=== PATIENT | female | born 1975 | race Caucasian/White ===

== ENCOUNTER → 2020-07-24 07:35 | Outpatient (CLI) | payer OTHER, SELFPAY ==
--- NOTE | ~2020-07-24 | US_ITS ---
US right upper quadrant INDICATION: Epigastric abdominal pain. Nausea. Heartburn. PROCEDURE: Realtime right upper abdominal ultrasound. COMPARISON: No prior studies for comparison. FINDINGS: The pancreas is normal without focal mass or pancreatic ductal dilation. Liver echotexture is normal without focal mass or intrahepatic biliary dilatation. There is normal directional flow i n the portal vein. The gallbladder is normal without stones, gallbladder wall thickening or pericholecystic fluid. Comm on bile duct measures 3 mm. No sonographic Ibarra's sign. Right renal echotexture is unremarkable. IMPRESSION: 1: Normal limited abdominal ultrasound. Reviewed, dictated and finalized at location B.
== END ==
DX: R10.13 Epigastric pain (principal)
CPT/HCPCS: 76705

== ENCOUNTER → 2020-09-04 07:22 | Outpatient (CLI) | payer OTHER, SELFPAY ==
--- NOTE | ~2020-09-04 | MM_ITS ---
EXAMINATION: MM scrn indigo implant BI w lev HISTORY: Screening mammogram TECHNIQUE: Craniocaudal and mediolateral oblique 3-D tomosynthesis images with implant displacement a nd synthetic 2-D images were generated. Craniocaudal and mediolateral oblique views of the breasts wi thout implant displacement were obtained using full field digital mammography. CAD analysis was submi tted and interpreted. COMPARISON: No prior mammogram is available for comparison at this institution. BREAST PARENCHYMAL COMPOSITION: The breasts are heterogeneously dense, which may obscure small masses . FINDINGS: Status post bilateral augmentation mammoplasty. There is no evidence of suspicious mass, ca lcification, or architectural distortion to suggest malignancy in either breast. There has been no lara spicious interval change. IMPRESSION: 1. No mammographic evidence of malignancy. 2. Recommend routine screening mammography in one year. BI-RADS Category 1: Negative Reviewed, dictated and finalized at location A.
== END ==
PROVIDERS: Visit Provider Advanced Practice Midwife
DX: Z12.31 Encounter for screening mammogram for malignant neoplasm of breast (principal)
CPT/HCPCS: 77063; 77067

== ENCOUNTER 2020-09-29 12:01 | Outpatient (CLI) | payer OTHER, SELFPAY ==
--- NOTE | ~2020-09-29 | XR_ITS ---
EXAMINATION: XR abdomen/kub 1V EXAM DATE: 09/29/2020 12:15 INDICATION: Ileitis, 30 hours post patency capsule ingestion. TECHNIQUE: Frontal projection of the upper abdomen, frontal projection lower abdomen/pelvis for inter pretation. There is no prior study for comparison. FINDINGS: No radiopaque foreign bodies identified. There is expected amount of colonic stool and ga s. No small bowel dilation, nonobstructive bowel gas pattern. There are no suspicious calcificati ons identified. There is no organomegaly suspected. The bones are unremarkable. IMPRESSION: Unremarkable abdomen x-ray exam. Reviewed, dictated and finalized at location A.
== END 2020-09-29 12:02 | disposition home or self-care (01) ==
LOC: ANHIMG 12:02
DX: K52.9 Noninfective gastroenteritis and colitis, unspecified (principal)
CPT/HCPCS: 74018

== ENCOUNTER → 2022-06-02 16:33 | Outpatient (CLI) | payer OTHER, SELFPAY ==
--- NOTE | ~2022-06-02 | MM_ITS ---
EXAMINATION: MM scrn indigo implant BI w lev HISTORY: Screening mammogram TECHNIQUE: Craniocaudal and mediolateral oblique 3-D tomosynthesis images with implant displacement a nd synthetic 2-D images were generated. Craniocaudal and mediolateral oblique views of the breasts wi thout implant displacement were obtained using full field digital mammography. CAD analysis was submi tted and interpreted. COMPARISON: 09/04/2020 BREAST PARENCHYMAL COMPOSITION: There are scattered areas of fibroglandular density. FINDINGS: There is no evidence of suspicious mass, calcification, or architectural distortion to sugg est malignancy in either breast. There has been no suspicious interval change. IMPRESSION: 1. No mammographic evidence of malignancy. 2. Recommend routine screening mammography in one year. BI-RADS Category 1: Negative Reviewed, dictated and finalized at location A. 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
== END ==
PROVIDERS: PCP Nurse Practitioner; Visit Provider Advanced Practice Midwife
DX: Z12.31 Encounter for screening mammogram for malignant neoplasm of breast (principal)
CPT/HCPCS: 77063; 77067

== ENCOUNTER 2023-09-16 15:32 | Outpatient (CLI) | payer OTHER, SELFPAY ==
--- NOTE | ~2023-09-16 | MM_ITS ---
EXAMINATION: MM scrn indigo implant BI w lev HISTORY: Screening mammogram TECHNIQUE: Craniocaudal and mediolateral oblique 3-D tomosynthesis images with implant displacement a nd synthetic 2-D images were generated. Craniocaudal and mediolateral oblique views of the breasts wi thout implant displacement were obtained using full field digital mammography. CAD analysis was submi tted and interpreted. COMPARISON: Comparison to multiple prior studies sequentially, with oldest reviewed study dated 09/04. BREAST PARENCHYMAL COMPOSITION: Dense: The breasts are heterogeneously dense, which may obscure small masses FINDINGS: There is no evidence of suspicious mass, calcification, or architectural distortion to sugg est malignancy in either breast. There has been no suspicious interval change. IMPRESSION: 1. No mammographic evidence of malignancy. 2. Recommend routine screening mammography in one year. BI-RADS Category 1: Negative Reviewed, dictated and finalized at location B.
== END 2023-09-16 15:33 ==
PROVIDERS: PCP Nurse Practitioner; Visit Provider Advanced Practice Midwife
DX: Z12.31 Encounter for screening mammogram for malignant neoplasm of breast (principal)
CPT/HCPCS: 77063; 77067

== ENCOUNTER 2023-12-09 14:05 | Outpatient (CLI) | payer OTHER, SELFPAY ==
[2023-12-09 14:42] LABS: Anion Gap 8 mmol/L (4-12); Blood Urea Nitrogen 13 mg/dL (7-17); Calcium 9.1 mg/dL (8.4-10.2); Carbon Dioxide 31 mmol/L (22-30); Chloride 99 mmol/L (98-107); Estimated Glomerular Filt Rate > 60; Glucose 87 mg/dL (65-110); Potassium 4.3 mmol/L (3.4-5.0); Sodium 138 mmol/L (137-145)
[2023-12-09 14:56] LABS: Hemoglobin A1C 5.6 % (<5.7)
== END 2023-12-09 14:06 | disposition home or self-care (01) ==
PROVIDERS: PCP Nurse Practitioner; Visit Provider Surgery Plastic and Reconstructive Surgery
DX: E11.9 Type 2 diabetes mellitus without complications (principal)
CPT/HCPCS: 36415; 80048; 83036

== ENCOUNTER 2023-12-26 13:55 | Outpatient (CLI) | payer OTHER, SELFPAY ==
--- NOTE | 2023-12-26 14:05 | ECG_ITS ---
Test Date: 2023-12-26 14:24:14 Measurements Intervals [place] Rate: 78 P: 58 KS: 149 QRS: 67 QRSD: 88 T: 62 QT: 387 QTc: 443 Interpretive Statements SINUS RHYTHM POSSIBLE LEFT ATRIAL ENLARGEMENT INCOMPLETE RIGHT BUNDLE BRANCH BLOCK BASELINE ARTIFACT- I, II, III, AVR, AVL, AVF, V4-V6 BORDERLINE ECG No previous ECG available for comparison Electronically Signed On 12-26-2023 14:53:31 CDT by Milo Dean D.O.
== END 2023-12-26 13:56 | disposition home or self-care (01) ==
LOC: ANHSURGERY 14:00
PROVIDERS: Visit Provider Surgery Plastic and Reconstructive Surgery
DX: Z01.810 Encounter for preprocedural cardiovascular examination (principal); I45.19 Other right bundle-branch block; E11.9 Type 2 diabetes mellitus without complications
CPT/HCPCS: 93005

== ENCOUNTER 2023-12-30 03:46 | Day surgery (SDC) | payer OTHER, SELFPAY ==
[2023-12-21 14:54] VITALS: BMI 20.5
--- NOTE | 2023-12-21 15:19 | PC.NURSE ---
Report to the Outpatient Waiting Room, entrance under the green pavilion located off [facility], at 0600 on 12-30-23. Planned Procedure Time: 0730.? Time changes happen often and if your time is changed the preop area will call you the afternoon before. - You and your visitor will be asked to self-screen and do not enter if you have any COVID symptoms. Please call surgeon if you need to reschedule. - A mask is optional within the hospital at this time. Patients may have clear liquids (water, carbonated beverages, clear teas, apple juice) until 3 hours prior to surgery with a maximum of 20 ounces. 0430 - No food from midnight until time of surgery and no smoking - Infants may have breast milk until 4 hours before surgery, formula 6 hours prior to surgery. - Children will be allowed to drink immediately following surgery.? If applicable, please bring a bottle or sippy cup to assist with drinking. Juice, water, soda, and popsicles are readily available.? For infants on formula, please bring formula the day of surgery.? Pacifiers are allowed. Take only the following medications with a SIP of water on the morning of surgery: levothyroxine, control, Auvelity DO NOT STOP ANY OF YOUR OTHER PRESCRIPTION MEDICATIONS PRIOR TO SURGERY EXCEPT THE FOLLOWING Medications to discontinue per physician: vitamins and supplements Date to take last dose: 12-27-23 Please no make-up, nail georgian, hairspray, perfume, deodorant, or body powder the day of surgery.? No jewelry (including any body piercings) or valuables the day of surgery, leave them at home.? Please take a shower or bath the night before, or the morning of, surgery with an antibacterial soap.? Wear comfortable, loose fitting clothing.? Children are encouraged to wear pajamas. Button down shirt/ zip-up jacket - Jewelry must be removed prior to entering the operating room.? Rings and piercings that are not removed may be cut off. - The hospital will not accept responsibility for valuables.? - Please leave all valuables, including medications, at home the day of surgery. If you are going home after surgery, a licensed driver/sales workers must drive you home.? - NO public transportation without another adult if you receive anesthesia. - We recommend that an adult stay with you for 24 hours following discharge. - We also recommend that you do not drive, make important decision, drink alcoholic beverages, or take any drugs that were not prescribed by your health care provider for at least 24 hours after your discharge time. For Pediatric surgeries, we recommend two adults accompany the child home. Follow any additional instructions given to you from your surgeon. Telephone instructions given to Nelida Cuenca and asked if any additional questions and then verbalized understanding. Patient advised to call surgeon office or pre surgery nurse liaison [phone] if any additional questions.
--- NOTE | 2023-12-29 10:49 | WPDANESEPPF ---
Anes - Initial Pre Proc Eval Procedure: Operation Date: 12/30/23 07:30 Proposed Procedures p Bilateral Breast Implant Exchange - Cole Mo MD Date/Time: 12/29/23 10:49 Surgeon: Cole Mo MD Pre Op Diagnosis: hx of breast augmentation Patient Data Age: 48 Gender: F Height: 1.66 m Weight: 56.7 kg Allergies Allergy/AdvReac Type Severity Reaction Status Date / Time amoxicillin AdvReac Mild Rash Verified 12/30/23 06:13 Home Medications Medication Instructions Recorded Confirmed Type dextromethorphan IR 45 1 tablet PO BID 12/21/23 12/21/23 History mg-bupropion ER 105 mg biphasic tablet (Auvelity) drospirenone (contraceptive) 4 mg 4 mg PO DAILY 12/21/23 12/21/23 History (28) tablet (Slynd) levothyroxine 88 mcg tablet 88 mcg PO DAILY 12/21/23 12/21/23 History metformin 500 mg tablet 1,000 mg PO DAILY 12/21/23 12/21/23 History multivitamin with minerals-folic 1 tablet PO DAILY 12/21/23 12/30/23 History acid 0.4 mg tablet Patient hx anesthesia problems: none Family hx anesthesia problems: none Results Review: All pre-operative results and documents have been reviewed as part of the pre-operative evaluation. [facility] Past Medical History Medical History (Updated 12/29/23 @ 10:49 by Maxim Hayes DO) ADHD Diabetes type 2, controlled Hypothyroidism Social History Social History Smoking status: Never smoker Second hand tobacco smoke exposure: No Alcohol intake: current Alcohol use details: maybe drinks once a month Substance use: never Substance use type: does not use Living arrangements: with family Spiritual care concerns: No Anes - Eval Final PreProcedure Day of Procedure 12/29/23 10:49 Patient weight: normal Heart: regular rate and rhythm Lungs: clear to auscultation Airway: Mallampati scale class III Neurological: alert and oriented Last oral intake: >/= 8 hours ASA classification: II Emergent: no Anesthetic plan: proceed Anesthesia type and monitoring: general LMA and standard monitoring Results Review: All pre-operative results and documents have been reviewed as part of the pre-operative evaluation. Informed Consent: The patient's anesthetic plan and its attendant risks and benefits were discussed with the patient/family/POA. Questions were solicited and answers provided to the satisfaction of the patient/family/POA.
[2023-12-30] VITALS (11 sets, daily range): BP systolic 112–123; BP diastolic 50–77; PULSE 78–92; RESP 16–23; TEMP 36.7–37.2; O2SAT 95–100; BMI 20.4
[2023-12-30 06:37] LABS: Glucose Point of Care 84 mg/dl (65-105)
[2023-12-30 06:42] LABS: BEDSIDEPREGUCG Negative (Negative)
[2023-12-30] MEDS: LACTATED RINGERS 1,000 ML 30 ML IV CONT ×2 (06:42→08:43)
[2023-12-30] MEDS: SCOPOLAMINE 1 MG PATCH 1 PATCH TRANSDERM (07:05)
--- NOTE | 2023-12-30 07:24 | WPDHPUPDATE1 ---
History and Physical Update Update Date/Time: 12/30/23 07:24 History and Physical has been reviewed, including an updated exam of the patient. There are NO changes in the patient's condition. Risks, benefits, and alternatives have been discussed and questions answered. Patient agrees to proceed with procedure.
--- NOTE | 2023-12-30 07:24 | W.PM.PROC2 ---
Procedure Note - Detailed Date of Procedure 12/30/23 Pre-op Diagnosis hx of breast augmentation Post-op Diagnosis Same Procedure Performed Bilateral breast implant exchange with elevation right IMF Surgeon Cole Mo MD Anesthesia General Findings Previous Implants: Bilateral Natrelle Saline 270cc texture No worrisome features Capsule densely adherent to muscle / chest wall New implants: Carla Inspira Cohesive 445 cc Right - REF# [id number] SN [id number] Left - REF# [id number] SN [id number] Description of Procedure Preoperatively the risks, benefits, alternatives were discussed in extensive detail. I wanted to be very realistic about the risks involved as well as expectations. I was clear about how we could actually make her worse. Answered all questions to satisfaction. Voiced a clear understanding. Consent obtained. She was taken the operating room placed supine on the operating room table. Anesthesia provided by anesthesiology and prepped and draped in a standard sterile fashion. Surgical time-out was taken. 1% lidocaine and 0.25% Marcaine with epinephrine was used to provide a field block. Tegaderm nipple kam were placed. Fifteen blade used to excise the previous IMF scars. Dissection was continued down until the capsules were identified and excised a significant portion of the capsule which was sent to pathology. Bilateral capsulotomy completed as needed. Right IMF capsulorraphy completed to elevated IMF. I then copiously irrigated with 3 L of saline solution on TUR tubing. Verified strict hemostasis. I then irrigated with Betadine containing solution. Using a no-touch technique and a Suggs funnel the implant was introduced into the pocket. This was closed with 2-0 PDS followed by 3-0 Monocryl and a running subcuticular 4-0 Monocryl followed by tissue glue. Dressings were placed. She was woken taken to the PACU without difficulty. All instrument sponge counts were correct at the end of the case. Estimated Blood Loss 20 Drains No Packing No Pathology None sent Complications No immediate complications Condition Stable Disposition PACU
[2023-12-30] MEDS: ceFAZolin 2 GM/D5W 50 ML 2 GM/50 ML BAG IVPB (07:29)
[2023-12-30] MEDS: BUPivacaine HCL 0.25% PF 30 ML VIAL INFILTRATE (07:29)
[2023-12-30] MEDS: LIDO 1%/EPINEPHRINE 1:100,000 50 ML VIAL 30 ML INFILTRATE (07:29)
[2023-12-30] MEDS: TRANEXAMIC ACID 1,000MG/ISO100 1,000 MG/100 ML BAG 200 MG IVPB (07:29)
[2023-12-30] MEDS: NACL 0.9% IRRIG POUR BOTTLE 900 ML, GENTAMICIN SULFATE INJ 160 MG, ceFAZolin 2 GM, POVI... IRRIGATION (07:29)
[2023-12-30 09:10] LABS: Glucose Point of Care 123 mg/dl (65-105)
[2023-12-30] MEDS: fentaNYL CITRATE INJ (*CRX) 100 MCG/2 ML VIAL 25 MCG IV PUSH ×4 (09:34→09:45)
[2023-12-30] MEDS: oxyCODONE HCL (*CRX) 5 MG TAB IR PO (11:08)
== END 2023-12-30 11:35 | disposition home or self-care (01) ==
PROVIDERS: Visit Provider Surgery Plastic and Reconstructive Surgery
PROC: (CPT 19342; principal; 2023-12-30 07:30)
DX: Z41.1 Encounter for cosmetic surgery (principal); E11.9 Type 2 diabetes mellitus without complications; E03.9 Hypothyroidism, unspecified; F90.9 Attention-deficit hyperactivity disorder, unspecified type; Z79.84 Long term (current) use of oral hypoglycemic drugs
CPT/HCPCS: 19325; 19371; 82948; A9270; J0690; J1100; J1580; J2003; J2004; J2250; J2405; J2704; J3010; J7120

== ENCOUNTER 2024-07-23 09:53 | Outpatient (CLI) | payer OTHER, SELFPAY ==
[2024-07-23 11:03] LABS: Anion Gap 3 mmol/L (4-12); Blood Urea Nitrogen 16 mg/dL (7-17); Calcium 8.9 mg/dL (8.4-10.2); Carbon Dioxide 32 mmol/L (22-30); Chloride 102 mmol/L (98-107); Estimated Glomerular Filt Rate > 60; Glucose 85 mg/dL (65-110); Potassium 4.3 mmol/L (3.4-5.0); Sodium 137 mmol/L (137-145)
--- OUTSIDE RECORDS SUMMARY | 2024-07-23 11:03 | XMS_ITS | Encounter Summary ---
Author Organization [facility] Address [address] [place] [id number] Care Team Providers Care [employer] Operations Consultant Name Role Phone Genevieve Newman NP Primary Care Provider [phone] Encounter Details Date Type Department Care Team (Late st Contact Info) Description 11/07/2021 [employer] Message Enc [facility] Family Medicine - [place] [address] [facility] [address] [place] [address] [id number] Genevieve Newman NP [address] [place] [address] Question regarding TSH W/REFLEX Social History Tobacco Use Types Packs/Day Years Used Date Smoking Tobacco: Never Smokeless Tobacco: Never Comments:The provider can pr ovide you with more information about quitting. 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
--- OUTSIDE RECORDS SUMMARY | 2024-07-23 11:03 | XMS_ITS | Encounter Summary ---
Author Organization [facility] Address 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 Gender Identity Not on file Sexual Orientation Not on file documented as of this encounter Plan of Treatment Not on file documented as of this encounter Procedures Procedure Name Priority Date/Time Associated Diagnosis Comments FIBRONECTIN Routine 01/16/2007 7:5 0 PM CDT CBC WITH DIFFERENTIAL Routine 01/16/2007 7:42 PM CDT CBC WITH DIFFERENTIAL Routine 01/16/2007 7:42 PM CDT BASIC METABOLIC PANEL Routine 01/16/2007 7:42 PM CDT URINALYSIS WITH REFLEX CULTURE Routine 01/16/2007 7:19 PM CDT URINALYSIS W/REFLEX MICROSCOPIC Routine 01/16/2007 7:19 PM CDT documented in this encounter Results * FIBRONECTIN (01/16/2007 7:50 PM CDT) FIBRONECTIN Negative Negative INTERFACE SYSTEM GESTATIONAL AGE 24.0 Weeks INTE RFACE SYSTEM 01/16/2007 7:50 PM CDT Sarah Cole MD BODY FLUIDS AND STOOLS Edite d Performing Organization Address [facility] Phone Number INTERFACE SYSTEM Refer to clinic/hospital department * (ABNORMAL) CBC WITH DIFFERENTIAL (01/16/2007 7:42 PM CDT) NEUTROPHILS 76(H) 45 - 70 % INTERFAC E SYSTEM LYMPHOCYTES 17 16 - 45 % INTERFAC E SYSTEM MONOCYTES 6 3 - 13 % INTERFACE SYSTEM EOSINOPHILS 0 0 - 7 % INTERFAC E SYSTEM BASOPHILS 0 0 - 2 % INTERFACE SYSTEM NEUTROPHIL ABSOLUTE 8.34(H) 1.90 - 7.00 K/uL INTERFACE SYSTEM LYMPHOCYTE ABSOLUTE 1.88 0.70 - 4.50 K/uL INTERFACE SYSTEM MONOCYTE ABSOLUTE 0.70 0.10 - 1.30 K/uL INTERFACE SYSTEM EOSINOPHIL ABSOLUTE 0.02 0.00 - 0.70 K/uL INTERFACE SYSTEM BASOPHILS ABSOLUTE 0.03 0.00 - 0.20 K/uL INTERFACE SYSTEM 01/16/2007 7:42 PM CDT us Sarah Cole MD HEMATOLOGY ORDERABLES Edited Performing Organization Address [facility] Phone Number INTERFACE SYSTEM Refer to clinic/hospital department * (ABNORMAL) CBC WITH DIFFERENTIAL (01/16/2007 7:42 PM CDT) WBC 11.0(H) 4.0 - 9.8 K/uL INTERFACE SYSTEM RBC 4.05 3.90 - 4.90 M/uL INTERFACE SYSTEM HEMOGLOBIN 12.1 11.8 - 14.8 g/dL INTERFACE SYSTEM HEMATOCRIT 36.0 35.5 - 44.0 % INTERFACE SYSTEM MCV 88.9 82.0 - 99.0 fL INTERFACE SYSTEM MCH 29.9 27.2 - 32.6 pg INTERFACE SYSTEM MCHC 33.6 31.5 - 35.5 % INTERFACE SYSTEM RDW 13.4 11.5 - 14.5 % INTERFACE SYSTEM RDW-STDEV 43.3 37.1 - 48.7 fL INTERFACE SYSTEM PLATELETS 321 140 - 350 K/uL INTERFACE SYSTEM MPV 9.5 9.3 - 12.4 fL INTERFACE SYSTEM 01/16/2007 7:42 PM CDT Sarah Cole MD HEMATOLOGY ORDERABLES Edited Performing Organization Address City/[facility]/ZIP Co de Phone Number INTERFACE SYSTEM Refer to clinic/hospital department * (ABNORMAL) BASIC METABOLIC PANEL (01/16/2007 7:42 PM CDT) GLUCOSE 90 65 - 99 mg/dL INTERFACE SYSTEM CREATININE 0.57 0.51 - 0.95 mg/dL INTERFACE SYSTEM CALCIUM 8.3(L) 8.4 - 10.2 mg/dL INTERFACE SYSTEM BUN 6 6 - 20 mg/dL INTERFACE SYSTEM SODIUM 135 135 - 145 mmol/L INTERFACE SYSTEM POTASSIUM 3.5 3.5 - 4.9 mmol/L INTERFACE SYSTEM CHLORIDE 104 96 - 108 mmol/L INTERFACE SYSTEM CO2 26 22 - 30 mmol/L INTERFACE SYSTEM GFR, >60 >=60 mL/min/1. 7 sq meter INTERFACE SYSTEM GFR >60 >=60 mL/min/1. 7 sq meter INTERFACE SYSTEM Comment: Estimated GFR rate interpretative information for both Americans and non- Americans is available on the [facility] Intranet at: [email or web address] Select: Lab Policies and Procedures Select: Reference Ranges - GFR 01/16/2007 7:42 PM CDT Sarah Cole MD CHEMISTRY ORDERABLES Edited INTERFACE SYSTEM Refer to clinic/hospital department * URINALYSIS (01/16/2007 7:19 PM CDT) COLOR UA Yellow INTERFACE SYSTEM CLARITY UA Clear Clear INTERFACE SYSTEM SPECIFIC GRAVITY UA 1.005 1.001 - 1.035 INTERFACE SYSTEM PH UA 6.5 5.0 - 8.0 INTERFACE SYSTEM LEUKOCYTE ESTERASE UA Negative Negative INTERFACE SYSTEM NITRITE UA Negative Negative INTERFACE SYSTEM PROTEIN UA Negative Negative INTERFACE SYSTEM GLUCOSE UA Negative Negative INTERFACE SYSTEM KETONES UA Negative Negative INTERFACE SYSTEM UROBILINOGEN UA <1 <=1 mg/dL INTE RFACE SYSTEM BILIRUBIN UA Negative Negative INTERFA CE SYSTEM BLOOD UA Negative Negative INTERFACE SYSTEM 01/16/2007 7:19 PM CDT Sarah Cole MD URINE ORDERABLES Edited Performing Organization Address [facility] de Phone Number INTERFACE SYSTEM Refer to clinic/hospital department * URINALYSIS WITH REFLEX CULTURE (01/16/2007 7:19 PM CDT) URINE CULTURE ORDER Not indicated INTERFACE SYSTEM Comment: Criteria for a reflex culture include one or more of the following: Abn ormal nitrite, leukocyte esterase, WBCs or RBCs. Lack of qualifying criteria does not exclude the possiblity of a urinary tract infection. Dilute urine, drug interference, etc. may decrease the sensitivity of the criteria analytes. 01/16/2007 7:19 PM CDT Sarah Cole MD URINE ORDERABLES Edited Performing Organization Address [facility] Phone Number INTERFACE SYSTEM Refer to clinic/hospital department documented in this encounter Visit Diagnoses Diagnosis Threatened premature labor, antepartum(644.03)- Primary Threatened premature labor, antepartum documented in this encounter Care Teams Gas Distribution Supervisor Relationship Specialty Start Date End Date Genevieve Newman APN PCP - General NURSE PRACTITIONER 07/18/20 documented as of this encounter
--- OUTSIDE RECORDS SUMMARY | 2024-07-23 11:03 | XMS_ITS | Clinical Summary ---
Author Organization [facility] [employer] Address [address] [place] [address] Care Team Providers Care Medical Records Analyst Name Role Phone Sola Shah RN Unavailable Unavailable Arina William COMPRESSOR HOUSE OPERATOR-CALENDER WIND UP TENDER Primary Care Provider + Source Comments [facility] [employer],non-owned Affiliates and Associated Physician Practices is amultiple site organization consisting of ambulatory clinics and hospital sitesin [place], [place], [place] and [place]. This disclosure is being madepursuant to the Care Everywhere program and may not contain all information available regarding this patient. Last updated 17.[facility] [employer] Allergies Active Allergy Reactions Criticality Noted Date Comments Aspirin Swelling 04/26/2018 Wheat Bran GI Discomfort 04/26/2018 Medications * Be aware that medications may not be up to date on this document. Alwaysverify current medications with the patient. multivitamin daily tablet Take 1 tablet by mouth daily with food Active Decker-3 Fatty Acids (FISH OIL PO) Active B Complex Vitamins (B COMPLEX PO) Active CBD oil Active diclofenac sodium XR 24hr (VOLTAREN XR) 100 MG tabletIndicatio ns:Sacroiliac joint pain Take 1 tablet by mouth once daily 90 tablet 11/23/2018 Active levomilnacipran ER (FETZIMA) 80 MG capsuleIndicati ons:Anxiety and depression Take 1 capsule by mouth once daily 90 capsule 12/07/2018 Active Active Problems Problem Noted Date Diagnosed Date Depression 09/05/2018 Anxiety 09/05/2018 Other seborrheic dermatitis 04/28/2018 Seasonal allergies 01/12/2018 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 (AF LURIA, FLUZONE TRIVALENT; 6MO+) (IIV3) 12/29/2016 INFLUENZA VACCINE, QUADR. (A FLURIA, FLUZONE QUADRIVALENT; 6MO+) (IIV4) 01/18/2018 TDAP (7yrs+) 10/18/2014 Family History Medical History Relation Name Comments Anxiety Disorder Father Depression Father Anxiety Disorder Mother adopted Depression Mother adopted Cancer - Other Paternal Grandfather multi ple myloma CVA Paternal Grandmother Diabetes - Type 2 Paternal Grandmother Relation Name Status Comments Father Alive Mother adopted Alive Paternal Grandfather Paternal Grandmother Social History Tobacco Use Types Packs/Day Years Used Date Smoking Tobacco: Never Smokeless Tobacco: Never Tobacco Cessation:Counseling Given: Yes Alcohol Use Standard Drinks/Week Comments Yes 0 (1 standard drink = 0.6 oz pur e alcohol) 0-2 x per week Comments No Sex and Gender Information Value Date Recorded Sex Assigned at Not on file Legal Sex Female 8:57 AM CDT Gender Identity Not on file Sexual Orientation Not on file 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 Not on file Not on file Last Filed Vital Signs Vital Sign Reading Time Taken Comments Blood Pressure 100/68 09/05/2018 8:47 AM CDT Pulse 72 09/05/2018 8:47 AM CDT Temperature 36.8 C (98.3 F) 09/05/2018 8:47 AM CDT Respiratory Rate 12 09/05/2018 8:47 AM CDT Oxygen Saturation 98% 07/05/2017 1:16 PM CDT Inhaled Oxygen Concentration 100% 05/31/2017 6 :57 AM [employer] Weight 61.7 kg (136 lb) 09/05/2018 8:47 AM CDT Height 167.6 cm (5' 6 ) 09/05/2018 8:47 AM CDT Body Mass Index 21.95 09/05/2018 8:47 AM CDT Plan of Treatment Health Maintenance Due Date Last Done Comments COLOGUARD (AGES 45-75) - COL ON CA SCREENING 1975 COLON MONITORING 1975 COLONOSCOPY - COLON CA SCREENING 1975 CT COLONOGRAPHY - COLON CA SCREENING 1975 Colorectal Cancer Screening 1975 FIT - COLON CA SCREENING 1975 FLEX SIG - COLON CA SCREENING 1975 MAMMOGRAM 1975 HEPATITIS B VACCINE (1 of 3 - 19+ 3-dose series) 08/28/1994 LIPID TESTING 02/10/2023 02/10/2018, 01/26/2017, 10/18/2014 COVID-19 VACCINE (2023-2 5 season) 2023 DEPRESSION SCREENING 03/28/2024 DTAP/TDAP/TD VACCINES (2 - T d or Tdap) 10/18/2024 10/18/2014 INFLUENZA VACCINE (Season Ended) 2024 01/18/2018, 12/29/2016 ZOSTER VACCINE (1 of 2) 08/28/2025 HEPATITIS C SCREENING Completed 11/16/2017 HIV SCREENING Completed 11/16/2017 HIB VACCINE Aged Out No longer eligi ble based on patient's age to complete this topic HPV VACCINE Aged Out No longer eligi ble based on patient's age to complete this topic MENINGOCOCCAL (Group B) VACCINE SHARED DECISION-MAKING Aged Out No longer eligible based on patient's age to complete this topic MENINGOCOCCAL GROUPS A/C/Y/W VACCINE Aged Out No longer eligible b ased on patient's age to complete this topic PNEUMOCOCCAL VACCINE Aged Out No long er eligible based on patient's age to complete this topic Procedures Procedure Name Priority Date/Time Associated Diagnosis Comments LIPID PROFILE Routine 02/10/2018 12:00 AM [employer] Screening for lipoid disorders HEPATITIS C ANTIBODY Routine 11/16/2017 8:30 AM CDT Well woman exam with routine gynecological exam HIV-1 HIV-2 ANTIBODY W REFLX Routine 11/16/2017 8:30 AM CDT Well woman exam with routine gynecological exam from Last 3 Months or Most Recently Relevant to Health Maintenance Results * (ABNORMAL) LIPID PROFILE (02/10/2018 12:00 AM [employer]) Cholesterol 211(H) 100 - 199 mg/dL [facility] INSURANCE BILL Triglycerides 136 0 - 149 mg/dL [facility] INSURANCE BILL HDL Cholesterol 47 >39 mg/dL [facility] INSURANCE BILL VLDL Calculated 27 5 - 40 mg/dL [facility] INSURANCE BILL LDL Calculated 137(H) 0 - 99 mg/dL [facility] INSURANCE BILL Comment NOT NEEDED [facility] INSURANCE BILL Comment:Ancillary determined the test is not needed Blood BLOOD SPECIMEN / Unknown 02/10/2018 02/10/2018 Narrative Resulting Agency [facility] [address] [id number] [place] Braulio Mesa DO LAB - CHEMISTRY ORDERABLES Final Result [facility] INSURANCE BILL [address] [place] [address] * HIV-1 HIV-2 ANTIBODY W REFLX (11/16/2017 8:30 AM CDT) HIV-1 Antibody Negative Negative [facility] INSURANCE BILL HIV-2 Antibody Negative Negative [facility]URANCE B[facility] Interpretation Negative [facility]URANCE BILL Comment:See RNA Reflex. Blood BLOOD SPECIMEN / Unknown 11/16/2017 8:30 AM CDT 11/16/2017 Narrative Resulting Agency [facility] [address] [id number] Tamika MICHAELSCNM LAB - SEROLOGY ORDERABLES Final Result [facility] INSURANCE BILL [address] [place] [address] * HEPATITIS C ANTIBODY (11/16/2017 8:30 AM CDT) Hepatitis C Antibody <0.1 0.0 - 0.9 s/co ratio [facility] INSURANCE BILL Comment: Negative: < 0.8 Indeterminate: 0.8 - 0.9 Positive: > 0.9 . The CDC recommends that a positive HCV antibody result be followed up with a HCV Nucleic Acid Amplification test (684682). Blood BLOOD SPECIMEN / Unknown 11/16/2017 8:30 AM CDT 11/16/2017 Narrative Resulting Agency Comment [facility] [address] [id number] Tamika Willams COMPRESSOR HOUSE OPERATOR-CNM LAB - CHEMISTRY ORDERABLES Final Result [facility] INSURANCE BILL [address] [place] [address] from Last 3 Months or Most Recently Relevant to Health Maintenance Insurance [facility] Member Subscriber Plan / Payer (Ef fective 2016-Present) Name:Nelida Montez Relation to Subscriber:Self Name:Nelida Montez Payer ID:[id number] (NAIC) Type:HMO Address: [place] [id number] [address] [facility] Advance Directives * Full Code (Latest Code Status on File) Date Activated Date Inactivated Comments 05/03/2017 1:35 PM 05/06/2017 5:28 PM * Full Code Date Activated Date Inactivated Comments 04/29/2017 1:32 PM 04/30/2017 1:30 PM Care Teams Medical Records Analyst Relationship Specialty Start Date End Date Arina William, COMPRESSOR HOUSE OPERATOR-CALENDER WIND UP TENDER PCP - General 12/07/18 Sola Shah, RN Registered Nurse 05/03/17
--- OUTSIDE RECORDS SUMMARY | 2024-07-23 11:03 | XMS_ITS | Encounter Summary ---
Author Organization [facility] Address [address] [place] [address] Care Team Providers Care Cisco Unified Communications Engineer Name Role Phone Genevieve Newman APN Primary Care Provider + Encounter Details Date Type Department Care Team (Latest Contact Info) Description 09/29/2005 Inpatient Historical HIS OB PREADMIT Sarah Cole MD NO ADDRESS ON FILE Other Specified Malposition or Malpresentation of Fetus, Delivered (Primary Dx) Social History Tobacco Use Types Packs/Day Years Used Date Smoking Tobacco: Never Assessed Comments Unknown Sex and Gender Information Value Date Recorded Sex Assigned at Not on file Legal Sex Female 3:24 AM DOCUMENTATION LIAISON Gender Identity Not on file Sexual Orientation Not on file documented as of this encounter Plan of Treatment Not on file documented as of this encounter Procedures Procedure Name Priority Date/Time Associated Diagnosis Comments BLOOD GAS CORD VENOUS Routine 09/29/2005 2:00 PM CDT BLOOD GAS CORD ARTERIAL Routine 09/29/2005 2:00 PM CDT CBC WITH DIFFERENTIAL Routine 09/29/2005 10:50 AM CDT CBC WITH DIFFERENTIAL Routine 09/29/2005 10:50 AM CDT documented in this encounter Results * (ABNORMAL) BLOOD GAS CORD VENOUS (09/29/2005 2:00 PM CDT) PH CORD VENOUS 7.40 7.23 - 7.46 INTERFACE SYSTEM PCO2 CORD VENOUS 44 28 - 57 mm Hg INTERFACE SYSTEM PO2 CORD VENOUS 20 15 - 42 mm Hg INTERFACE SYSTEM SO2 CORD SETH 48 14 - 75 % INTERFA CE SYSTEM FO2HB CORD VENOUS 47(L) 94 - 98 % INTERFACE SYSTEM HCO3 CORD VENOUS 27(H) 17 - 25 mmol/L INTERFACE SYSTEM BASE EXCESS CORD VENOUS 1.4(H) -5.8 - 0.7 mmol/L INTERFACE SYSTEM HEMOGLOBIN CORD VENOUS 17.4 14.5 - 22.5 g/dL INTERFACE SYSTEM 09/29/2005 2:00 PM CDT Sarah Cole MD ABG ORDERABLES Final Result Performing Organization Address [facility] Phone Number INTERFACE SYSTEM Refer to clinic/hospital department * (ABNORMAL) BLOOD GAS CORD ARTERIAL (09/29/2005 2:00 PM CDT) PH CORD ARTERIAL 7.35 7.14 - 7.40 INTERFACE SYSTEM PCO2 CORD ARTERIAL 56 32 - 69 mm Hg INTERFACE SYSTEM PO2 CORD ARTERIAL 7(L) 8 - 33 mm Hg INTERFACE SYSTEM SO2 CORD ARTERIAL 11 5 - 59 % INTERFACE SYSTEM FO2HB CORD ARTERIAL 10(L) 94 - 98 % INTERFACE SYSTEM HCO3 CORD ARTERIAL 30(H) 16 - 27 mmol/L INTERFACE SYSTEM BASE EXCESS CORD ARTERIAL 2.5(H) -7.6 - 1.3 mmol/L INTERFACE SYSTEM HEMOGLOBIN CORD ARTERIAL Unable to eval. 14.5 - 22.5 INTERFACE SYSTEM 09/29/2005 2:00 PM CDT Sarah Cole MD ABG ORDERABLES Final Result Performing Organization Address [facility] Phone Number INTERFACE SYSTEM Refer to clinic/hospital department * (ABNORMAL) CBC WITH DIFFERENTIAL (09/29/2005 10:50 AM CDT) NEUTROPHILS 74(H) 45 - 70 % INTERFAC E SYSTEM LYMPHOCYTES 18 16 - 45 % INTERFAC E SYSTEM MONOCYTES 7 3 - 13 % INTERFACE SYSTEM EOSINOPHILS 1 0 - 7 % INTERFAC E SYSTEM BASOPHILS 0 0 - 2 % INTERFACE SYSTEM NEUTROPHIL ABSOLUTE 7.83(H) 1.90 - 7.00 K/uL INTERFACE SYSTEM LYMPHOCYTE ABSOLUTE 1.94 0.70 - 4.50 K/uL INTERFACE SYSTEM MONOCYTE ABSOLUTE 0.70 0.10 - 1.30 K/uL INTERFACE SYSTEM EOSINOPHIL ABSOLUTE 0.05 0.00 - 0.70 K/uL INTERFACE SYSTEM BASOPHILS ABSOLUTE 0.03 0.00 - 0.20 K/uL INTERFACE SYSTEM 09/29/2005 10:5 0 AM CDT Sarah Cole MD HEMATOLOGY ORDERABLES Final Result Performing Organization Address City/[facility] Co de Phone Number INTERFACE SYSTEM Refer to clinic/hospital department * (ABNORMAL) CBC WITH DIFFERENTIAL (09/29/2005 10:50 AM CDT) WBC 10.6(H) 4.0 - 9.8 K/uL INTERFACE SYSTEM RBC 3.71(L) 3.90 - 4.90 M/uL INTERFACE SYSTEM HEMOGLOBIN 10.9(L) 11.8 - 14.8 g/dL INTERFACE SYSTEM HEMATOCRIT 32.3(L) 35.5 - 44.0 % INTERFACE SYSTEM MCV 87.1 82.0 - 99.0 fL INTERFACE SYSTEM MCH 29.4 27.2 - 32.6 pg INTERFACE SYSTEM MCHC 33.7 31.5 - 35.5 % INTERFACE SYSTEM RDW 13.3 11.5 - 14.5 % INTERFACE SYSTEM RDW-STDEV 42.6 37.1 - 48.7 fL INTERFACE SYSTEM PLATELETS 314 140 - 350 K/uL INTERFACE SYSTEM MPV 10.0 9.3 - 12.4 fL INTERFACE SYSTEM 09/29/2005 10:5 0 AM CDT Sarah Cole MD HEMATOLOGY ORDERABLES Final Result Performing Organization Address City/[facility] de Phone Number INTERFACE SYSTEM Refer to clinic/hospital department documented in this encounter Visit Diagnoses Diagnosis Other specified malposition or malpresentation of fetus, delivered- Primary documented in this encounter Care Teams Cisco Unified Communications Engineer Relationship Specialty Start Date End Date Genevieve Newman APN PCP - General NURSE PRACTITIONER 07/18/20 documented as of this encounter
--- OUTSIDE RECORDS SUMMARY | 2024-07-23 11:03 | XMS_ITS | Encounter Summary ---
Author Organization [facility] Address [address] [place] [address] Care Team Providers Care Directory Assistance Operator Name Role Phone Sola Shah RN Unavailable Unavailable Arina William RETURNING OFFICER-[facility] Primary Care Provider + Reason for Visit * Reason Onset Date Comments MEDICATION REFILL 12/07/2018 Refill Request Encounter Details Date Type Department Care Team (Late st Contact Info) Description 12/07/2018 Refill [facility] General Internal Medicine [address] [address] [place] [address] Nina Chew MD [address] [facility] [place] [address] MEDICATION REFILL (Refill Request ) Social History Tobacco Use Types Packs/Day Years Used Date Smoking Tobacco: Never Smokeless Tobacco: Never Alcohol Use Standard Drinks/Week Comments Yes 0 [...] file Not on file Not on file documented as of this encounter Functional Status * Is person deaf or have serious hearing difficulty? Answer Date of Assessment Author No 05/04/2017 1:30 AM Avel Avila RN * Is person blind or have serious difficulty seeing? Answer Date of Assessment Author No 05/04/2017 1:30 AM Avel Avila RN * Does person have serious difficulty walking/climbing stairs? Answer Date of Assessment Author No 05/04/2017 1:30 AM Avel Avila RN * Does person have difficulty dressing/bathing? Answer Date of Assessment Author No 05/04/2017 1:30 AM Avel Avila RN * Does person have difficulty doing errands alone? Answer Date of Assessment Author No 05/04/2017 1:30 AM Avel Avila RN documented as of this encounter Mental Status * Does person have difficulty concentrating/remembering/making decisions? Answer Entry Date Author No 05/04/2017 1:30 AM Avel Avila RN documented in this encounter Miscellaneous Notes * Telephone Encounter - Petra Lynn - 12/07/2018 9:47 AM CDT Patient requesting refills for the following (Fetzima 10 mg ) medications. TITUS: 09-05-18 NOV: not scheduled at this time Problem List Identified: office visit on 09-05-18 anxiety and depression Medication attached per refill protocol/guidlines for further review by provider yes PCP / Resident PCP verified yes Allergies Reviewed yes Pharmacy Reviewed yes Medication details entered yes Office visit within the last six months yes if not within last 6 months route to GIM-scheduling as well. Office visit greater than 12 months no routed to GIM scheduling ONLY no. documented in this encounter Plan of Treatment Not on file documented as of this encounter Visit Diagnoses Not on filedocumented in this encounter Care Teams Directory Assistance Operator Relationship Specialty Start Date End Date Arina William, TRACI-PARK WORKER PCP - General 12/07/18 Sola Shah RN Registered Nurse 05/03/17 documented as of this encounter
--- OUTSIDE RECORDS SUMMARY | 2024-07-23 11:03 | XMS_ITS | Encounter Summary ---
Author Organization [facility] Address [address] [place] [address] Care Team Providers Care Fur Weigher Name Role Phone Genevieve Newman APN Primary Care Provider + Encounter Details Date Type Department Care Team (Late st Contact Info) Description 03/31/2007 Outpatient Historical HIS OB PREADMIT Sarah Cole MD NO ADDRESS ON FILE Normal Delivery Social History Tobacco Use Types Packs/Day Years Used Date Smoking Tobacco: Never Assessed Comments Unknown Sex and Gender Information Value Date Recorded Sex Assigned at Not on file Legal Sex Female 3:24 AM WING MAILER MACHINE OPERATOR Gender Identity Not on file Sexual Orientation Not on file documented as of this encounter Plan of Treatment Not on file documented as of this encounter Visit Diagnoses Diagnosis Normal delivery documented in this encounter Care Teams Fur Weigher Relationship Specialty Start Date End Date Genevieve Newman APN PCP - General NURSE PRACTITIONER 07/18/20 documented as of this encounter
--- OUTSIDE RECORDS SUMMARY | 2024-07-23 11:04 | XMS_ITS | Encounter Summary ---
Author Organization [facility] Address [address] [place] [address] Care Team Providers Care Concrete Form Setter And Finisher Name Role Phone Genevieve Newman NP Primary Care Provider [phone] Encounter Details Date Type Department Care Team (Late st Contact Info) Description 01/10/2021 [facility] Message Enc [facility] Family Medicine - [place] [address] [id number] Genevieve Newman NP [address] [place] [id number] Medication Questions Social History Tobacco Use Types Packs/Day Years Used Date Smoking Tobacco: Never Smokeless Tobacco: Never Comments:The provider can pr ovide you with more information about quitting. Alcohol Use Standard Drinks/Week Comments Not Currently 0 (1 standard drink = 0.6 oz pur e alcohol) PHQ-2 Answer Date Recorded PHQ-2 Score - If the patient scores above 3, please move on to questions 3-9 0 05/28/2020 Comments No Sex and Gender Information Value Date Recorded Sex Assigned at Not on file Legal Sex Female 9:35 AM FRONT DESK MANAGER Gender Identity Not on file Sexual Orientation Not on file documented as of this encounter Plan of Treatment Not on file documented as of this encounter Visit Diagnoses Not on filedocumented in this encounter Additional Health Concerns Assessment Noted Time PHQ-9 Depression Total Score: 0 05/29/19 21 2:54 PM FRONT DESK MANAGER documented as of this encounter Care Teams Concrete Form Setter And Finisher Relationship Specialty Start Date End Date Genevieve Newman NP [address] [place] [address] PCP - General NURSE PRACTITIONER 05/27/20 documented as of this encounter
--- OUTSIDE RECORDS SUMMARY | 2024-07-23 11:04 | XMS_ITS | Clinical Summary ---
Author Organization [facility] Address [address] [place] [id number] Care Team Providers Care Supervisor Coil Winding Name Role Phone Genevieve Newman NP Primary Care Provider [phone] Allergies Active Allergy Reactions Criticality Noted Date Comments Aspirin Swelling 04/26/2018 Wheat GI Upset 04/26/2018 Medications Multiple Vitamin (MULTIVITAMIN ADULT) Tab Active vitamin D3, cholecalciferol, 1000 UNIT Tab tablet Take 1 tablet by mouth daily. Active CONCERTA 27 MG tablet Take 27 mg by mouth every morning. 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 ?Autism high functioning Cancer Maternal Grandfather Multiple my eloma Diabetes Maternal Grandmother Heart Disease Maternal Grandmother Stroke Stroke Maternal Grandmother Depression Mother Mental Health Mother Anxiety, depress ion, possible BPD Dementia Paternal Grandfather Diabetes Paternal Grandfather Diabetes Paternal Grandmother Stroke Paternal Grandmother Depression Sister 1 Mental Health Sister 1 Eating disorder, PTSD, anxiety, depression Depression Sister 2 Mental Health Sister 2 Depression Anxie ty PTSD Mental Health Sister 3 Anxiety Relation Status Comments Brother 1 Brother 2 Brother 3 Father Maternal Grandfather Maternal Grandmother Mother Paternal Grandfather Paternal Grandmother Sister 1 Sister 2 Sister 3 Social History Tobacco Use Types Packs/Day Years Used Date Smoking Tobacco: Never Smokeless Tobacco: Never Tobacco Cessation:Counseling Given: Yes Comments:The provider can provide you with more information about quitting. Alcohol [...] on file Legal Sex Female 9:35 AM RE DYE HAND Gender Identity Not on file Sexual Orientation Not on file Last Filed Vital Signs Vital Sign Reading Time Taken Comments Blood Pressure 120/73 10/06/2021 1:57 PM CDT Pulse 102 10/06/2021 1:57 PM CDT Temperature 37.3 C (99.1 F) 10/06/2021 1:57 PM CDT Respiratory Rate 18 10/06/2021 1:57 PM CDT Oxygen Saturation 98% 10/06/2021 1:57 PM CDT Inhaled Oxygen Concentration - - Weight 62.1 kg (137 lb) 10/06/2021 1:57 PM CDT Height 166.4 cm (5' 5.5 ) 10/06/2021 1:57 PM CDT Body Mass Index 22.45 10/06/2021 1:57 PM CDT Plan of Treatment Health Maintenance Due Date Last Done Comments Annual Physical 10/06/2022 10/06/2021, 05/28/2020, 05/28/2020 Cervical Cancer Screening Pa p with HPV Testing (Age 30 to 64) Every 5 Years 11/16/2022 11/16/2017 Cervical Cancer Screening Pa p Smear (Age 30 to 64) Every 3 Years 10/25/2023 10/24/2020, 11/16/2017 Cervical Cancer Screening wi th HPV 10/25/2023 COVID-19 Vaccine (2023-2 5 season) 2023 05/27/2020, 04/29/2020 PHQ-2 (Physician [place]) 03/28/2024 DTaP, Tdap and Td Vaccines ( 2 - Td or Tdap) 10/18/2024 10/18/2014, 01/18/2005, 09/25/2004 Mammogram Screening 09/15/2025 09/16/2023, 06/02/2022 Colorectal Cancer Screening Colonoscopy (10 Years) 09/03/2030 09/03/2020 Hepatitis B Vaccines Completed 04/07/2005, 01/21/2005, 09/25/2004 Hepatitis C Completed 11/06/2021, 11/16/2017, 11/16/2017 Meningococcal B Vaccine Aged Out No l onger eligible based on patient's age to complete this topic Meningococcal Vaccine Aged Out No joselyn george eligible based on patient's age to complete this topic Pneumococcal Vaccine: Pediatrics (0 to 5 Years) and At-Risk Patients (6 to 49 Years) Aged Out No longer eligible b ased on patient's age to complete this topic RSV Immunizations Under 20 Months Aged Out No longer eligible b ased on patient's age to complete this topic Procedures Procedure Name Priority Date/Time Associated Diagnosis Comments MAMMOGRAM GENERIC (SCAN ORDER) 09/16/2023 HEPATITIS C ANTIBODY W/RFX TO HCV RNA Routine 11/06/2021 7:44 AM CDT Need for hepatitis C screening test COLONOSCOPY GENERIC (SCAN ORDER) 09/03/2020 from Last 3 Months or Most Recently Relevant to Health Maintenance Results * MAMMOGRAM GENERIC (SCAN ORDER) (09/16/2023) Anatomical Region Laterality Modality Other 09/16/2023 [facility] Scanned SCANNING Final Resu lt * HEPATITIS C ANTIBODY W/RFX TO HCV RNA ([facility] ONLY) (11/06/2021 7:44 AM CDT) HEPATITIS C AB NON-REACTI VE NON-REACT BETSEY [facility] SIGNAL TO CUTOFF 0.[address] [facility] Comment: HCV antibody was non-reactive. There is no laboratory evidence of HCV infection. In most cases, no further action is required. However, if recent HCV exposure is suspected, a test for HCV RNA (test code 47450) is suggested. For additional information please refer to http://education.[employer]/faq/RRL72d7 (This link is being provided for informational/ educational purposes only.) 11/06/2021 7:44 AM CDT 11/06/2021 7:45 AM CDT Narrative [facility] - 11/07/2021 12:54 PM CDT FASTING:YES FASTING: YES us Genevieve Newman NP LABORATORY Final Res ult [facility] [address] [place] [address] * COLONOSCOPY GENERIC (09/03/2020) 09/03/2020 Narrative 09/03/2020 Ordered by an unspecified provider. us Documents Scanned SCANNING Final Result from Last 3 Months or Most Recently Relevant to Health Maintenance Insurance [facility] Care Teams Supervisor Coil Winding Relationship Specialty Start Date End Date Genevieve Newman NP [address] [place] [address] PCP - General NURSE PRACTITIONER 05/27/20
--- OUTSIDE RECORDS SUMMARY | 2024-07-23 11:04 | XMS_ITS | Patient Health Record ---
Author Organization [facility] Address [address] [place] [address] Care Team Providers Care 5Th Grade Teacher Name Role Phone HEIDY SANABRIA, STEWART Primary Care Provide r Unavailable Dannie Munoz Unavailable [phone] Migration, Provider Unavailable Unavailable Allergies Allergen (clinical drug ingredient) Drug/Non Drug Allergy documented on EMR Reaction Allergy Type Onset Date Status aspirin Candido Aspirin Unknown Drug Allergy 08/08/2023 Ac tive Results Component Value Reference Range Notes DRUG SCREEN, 14 DRUGS (DETEC TIMED), URINE Reviewed date:08/08/2023 12:00:00 AM Interpretation: Performing Lab: Notes/Report: Amphetamine negative Barbiturates negative Benzodiazipine negative Buprenorphine negative Cocaine negative MDMA/Ectasy negative Methadone negative Morphine negative note ALL NEGATIVE Oxycodone negative Phenocyclidine negative THC negative DRUG SCREEN, 14 DRUGS (DETEC TIMED), URINE Reviewed date:08/08/2023 12:00:00 AM Interpretation: Performing Lab: Notes/Report: Reason For Referral No Information Medications Medication SIG (Take, Route, Frequency, Duration) Notes Start Date End Date Status Synthroid 75 MCG Oral 08/08/2023 Ac tive metFORMIN HCl 500 MG Oral 08/08/2023 Active Slynd 4 MG Oral for 84 Days Ac tive Amphetamine-Dextroam phetamine 10 MG 1 tablet in the morning Orally once a day for 30 days 07/09/2024 Active Auvelity 45-105 MG 1 tablet Oral twice a day for 30 days Active Amphetamine-Dextroam phet ER 20 MG 1 capsule every morning Orally Once a day for 30 days 07/09/2024 Active ESTRADIOL 0.5 MG/0.5 GRAM (0.1 %) TRANSDERMAL GEL PACKET *Reorder from [facility] for eRx and Interaction Alerts* 08/08/2023 Active Immunizations Vaccine Route Administration Date Status Comme nts Moderna Covid-19 Vaccine 1st dose Unknown 04/29/2020 Ad ministered Moderna Covid-19 Vaccine 1st dose Unknown 05/27/2020 Ad ministered Social History Tobacco Use: Social History Observation Description Date Details (start date - stop date) Never Smoker NA - NA Sex Assigned At : Social History Observation Description Sex Assigned At Female Tobacco Control (Standard) Question Answer Notes Tobacco use: Nonsmoker Problems Problem Type SNOMED Code ICD Code Onset Dates Problem Status W/U Status Risk Notes Problem Mild recurrent major depression (57251465) Major depressive disorder, recurrent, mild (F33.0) Active confirmed Problem Attention deficit hyperactivity disorder, combined type (11503624) Attention-deficit hyperactivity disorder, combined type (F90.2) Active confirmed Vital Signs Heart Rate 88 /min 01/30/2024 Height-cm 167.64 cm 01/30/2024 Blood pressure diastolic 64 mm Hg 01/30/2024 Weight-kg 57.61 kg 01/30/2024 Height 66.00 in 01/30/2024 Blood pressure systolic 95 mm Hg 01/30/2024 Weight 127.0 lbs 01/30/2024 BMI 20.5 kg/m2 01/30/2024 Encounters Encounter Location Date Provider Diagnosis [facility] [address] [facility] [address] [place] [address] 08/08/2023 Dannie Munoz Major depressive disorder, recurrent, mild F33.0 ; Generalized anxiety disorder F41.1 and Attention-deficit hyperactivity disorder, combined type F90.2 [facility] [address] [place] [address] 10/24/2023 Dannie Munoz Major depressive disorder, recurrent, mild F33.0 and Attention-deficit hyperactivity disorder, combined type F90.2 [facility] [address] [place] [address] 01/30/2024 Dannie Munoz Major depressive disorder, recurrent, mild F33.0 and Attention-deficit hyperactivity disorder, combined type F90.2 [facility] [address] [place] [address] 08/13/2023 Provider Migration [facility], [facility] [address] [place] [address] 08/14/2023 Provider Migration [facility], [facility] [address] [place] [address] 10/19/2023 Dannie Munoz Major depressive disorder, recurrent, mild F33.0 [facility], [facility] [address] [place] [address] 07/05/2024 Dannie Munoz Major depressive disorder, recurrent, mild F33.0 [facility], [facility] [address] [place] [address] 09/20/2023 Dannie Munoz Attention-deficit hyperactivity disorder, combined type F90.2 [facility], [facility] [address] [place] [address] 10/18/2023 Dannie Palaciosoza [facility], [facility] [address] [place] [address] 10/19/2023 Dannie Munoz [facility], [facility] [address] [place] [address] 11/04/2023 Dannie Munoz [facility], [facility] [address] [place] [address] 12/05/2023 Dannie Munoz Major depressive disorder, recurrent, mild F33.0 and Attention-deficit hyperactivity disorder, combined type F90.2 [facility], [facility] [address] [place] [address] 01/01/2024 Dannie Munoz Attention-deficit hyperactivity disorder, combined type F90.2 [facility], [facility] [address] [place] [address] 03/10/2024 Dannie Munoz Attention-deficit hyperactivity disorder, combined type F90.2 [facility], [facility] [address] [place] [address] 05/10/2024 Dannie Munoz Attention-deficit hyperactivity disorder, combined type F90.2 [facility], [facility] [address] [place] [address] 06/06/2024 Dannie Munoz [facility], [facility] [address] [place] [address] 06/06/2024 Dannie Munoz Attention-deficit hyperactivity disorder, combined type F90.2 [facility] [address] [place] [address] 06/06/2024 Dannie Munoz [facility] [address] [place] [address] 06/06/2024 Dannie Munoz [facility] [address] [place] [address] 07/09/2024 Dannie Munoz Attention-deficit hyperactivity disorder, combined type F90.2 Assessments Encounter Date Diagnosis (ICD Code) Assessment Notes Treatment Notes Treatment Clinical Notes Section Notes 09/20/2023 Attention-deficit hyperactivity disorder, combined type (ICD-10 - F90.2) 10/19/2023 Major depressive disorder, recurrent, mild (ICD-10 - F33.0) 10/24/2023 Major depressive disorder, recurrent, mild (ICD-10 - F33.0) 1. ADHD, combined presentation: - Patient reports that the current medication, Adderall ER 20 mg once daily, is working well and better than Vyvanse. No reported side effects or concerns. Plan: - Continue Adderall ER 20 mg once daily - Refill prescription and send to pharmacy - Follow up in 4 months or sooner if any concerns arise 2. Major Depressive Disorder: - Patient reports stable mood and no current depressive symptoms. Currently on Auvelity 45 mg, 105 twice a day. Plan: - Continue Auvelity 45 mg, 105 twice a day - Monitor for any changes in mood or depressive symptoms - Follow up in 4 months or sooner if any concerns arise 3. Anxiety: - Patient reports no current anxiety symptoms or concerns. Plan: - Continue to monitor for any changes in anxiety levels - Follow up in 4 months or sooner if any concerns arise 4. Sleep: - Patient reports no current sleep problems or concerns. Plan: - Continue to monitor sleep quality and quantity - Follow up in 4 months or sooner if any concerns arise 5. Insurance and Prior Authorization: - Patient has new insurance and may require prior authorization for Auvelity. Plan: - Assist patient with prior authorization process if needed - Follow up as necessary to ensure medication coverage 6. Telehealth: - Patient inquires about telehealth appointments. Plan: - Inform patient that telehealth appointments are available - Schedule follow-up appointments as telehealth visits if preferred by the patient 10/24/2023 Attention-deficit hyperactivity disorder, combined type (ICD-10 - F90.2) 1. ADHD, combined presentation: - Patient reports that the current medication, Adderall ER 20 mg once daily, is working well and better than Vyvanse. No reported side effects or concerns. Plan: - Continue Adderall ER 20 mg once daily - Refill prescription and send to pharmacy - Follow up in 4 months or sooner if any concerns arise 2. Major Depressive Disorder: - Patient reports stable mood and no current depressive symptoms. Currently on Auvelity 45 mg, 105 twice a day. Plan: - Continue Auvelity 45 mg, 105 twice a day - Monitor for any changes in mood or depressive symptoms - Follow up in 4 months or sooner if any concerns arise 3. Anxiety: - Patient reports no current anxiety symptoms or concerns. Plan: - Continue to monitor for any changes in anxiety levels - Follow up in 4 months or sooner if any concerns arise 4. Sleep: - Patient reports no current sleep problems or concerns. Plan: - Continue to monitor sleep quality and quantity - Follow up in 4 months or sooner if any concerns arise 5. Insurance and Prior Authorization: - Patient has new insurance and may require prior authorization for Auvelity. Plan: - Assist patient with prior authorization process if needed - Follow up as necessary to ensure medication coverage 6. Telehealth: - Patient inquires about telehealth appointments. Plan: - Inform patient that telehealth appointments are available - Schedule follow-up appointments as telehealth visits if preferred by the patient 12/05/2023 Major depressive disorder, recurrent, mild (ICD-10 - F33.0) 01/01/2024 Attention-deficit hyperactivity disorder, combined type (ICD-10 - F90.2) 01/30/2024 Major depressive disorder, recurrent, mild (ICD-10 - F33.0) 1. ADHD: - Patient is on Adderall XR 20 mg, taking it 2-3 times per week as needed for long work shifts. Reports that the medication is working well when taken. - Continue Adderall XR 20 mg as needed. No refill needed at this time, as the patient has an adequate supply. 2. Depression: - Patient is on Auvelity twice daily and reports improvement in mood. Sleep appears to be a significant factor in the patient's depressive symptoms. - Continue Auvelity twice daily. Refill prescription and send to [facility]. - Encourage the patient to maintain a consistent sleep schedule and address any sleep disturbances. 3. Anxiety: - No reported anxiety symptoms during the visit. - Continue to monitor for any changes in anxiety levels during future visits. 4. Work environment: - Patient reports a positive work environment with [employer], which contributes to overall satisfaction and mental health. - Encourage the patient to continue engaging in a supportive work environment and maintain a healthy work-life balance. 5. Follow-up: - Schedule a follow-up appointment in 6 months to monitor the patient's progress and medication management. 03/10/2024 Attention-deficit hyperactivity disorder, combined type (ICD-10 - F90.2) 05/10/2024 Attention-deficit hyperactivity disorder, combined type (ICD-10 - F90.2) 07/05/2024 Major depressive disorder, recurrent, mild (ICD-10 - F33.0) 07/09/2024 Attention-deficit hyperactivity disorder, combined type (ICD-10 - F90.2) 06/06/2024 Attention-deficit hyperactivity disorder, combined type (ICD-10 - F90.2) 08/08/2023 Major depressive disorder, recurrent, mild (ICD-10 - F33.0) 08/08/2023 Generalized anxiety disorder (ICD-10 - F41.1) 08/08/2023 Attention-deficit hyperactivity disorder, combined type (ICD-10 - F90.2) 01/30/2024 Attention-deficit hyperactivity disorder, combined type (ICD-10 - F90.2) 1. ADHD: - Patient is on Adderall XR 20 mg, taking it 2-3 times per week as needed for long work shifts. Reports that the medication is working well when taken. - Continue Adderall XR 20 mg as needed. No refill needed at this time, as the patient has an adequate supply. 2. Depression: - Patient is on Auvelity twice daily and reports improvement in mood. Sleep appears to be a significant factor in the patient's depressive symptoms. - Continue Auvelity twice daily. Refill prescription and send to [facility] pharmacy. - Encourage the patient to maintain a consistent sleep schedule and address any sleep disturbances. 3. Anxiety: - No reported anxiety symptoms during the visit. - Continue to monitor for any changes in anxiety levels during future visits. 4. Work environment: - Patient reports a positive work environment with [employer], which contributes to overall satisfaction and mental health. - Encourage the patient to continue engaging in a supportive work environment and maintain a healthy work-life balance. 5. Follow-up: - Schedule a follow-up appointment in 6 months to monitor the patient's progress and medication management. 12/05/2023 Attention-deficit hyperactivity disorder, combined type (ICD-10 - F90.2) Plan Of Treatment Next Appt Details Provider Name:Dannie greco, 07/30/2024 01:00:00 PM, [address], [address], [place], [address], Insurance Providers Payer Name Payer Address Payer Phone Subscriber Number Group Number Insured Name Patient Relationship to Insured Coverage Start Date Coverage End Date [facility] [address] [place] [address] [id number] KEVIN MONTEZ Self - patient is the insured Medical (General) History Medical History History ICD Code Problems: Attention deficit hyperactivit y disorder, combined type Generalized anxiety disorder Mild recurrent major depression Severe recurrent major depression withou t psychotic features , Surgical History Surgery Date(Month/Year) Breast surgery (63942) Cosmetic surgery 03/28/2003 Any surgical history 09/29/2005 Endometrial ablation (72448) 02/05/2011 Other 02/05/2011
--- OUTSIDE RECORDS SUMMARY | 2024-07-23 11:04 | XMS_ITS | Clinical Summary ---
Author Organization [facility] [place] Administrative Offices Address [address] [place] [address] Care Team Providers Care Amortization Schedule Clerk Name Role Phone Genevieve Newman APN Primary Care Provider + Allergies Active Allergy Reactions Criticality Noted Date Comments Aspirin Swelling Low 04/26/2018 Wheat Bran Nausea and Vomiting Low 04/26/2018 Medications cholecalciferol , vitamin D3, 1,000 unit Take 1 Tablet by mouth. Active norethindrone Ac-Eth estradiol (Junel 04/16, ,) 1-20 mg-mcg tablet 9 Active flibanserin (Addyi) 100 mg Tablet Take by mouth. 0 Active lisdexamfetamin e (Vyvanse) 30 mg capsule 1 Active Multivitamins with Fluoride (MULTI-VITAMIN ORAL) Take by mouth. Activ e bisacodyL (DULCOLAX) 5 mg Delayed Release tablet Take 4 tablets as directed for colonoscopy preparation 4 Tablet 1 Active simethicone 80 mg Tablet, Chewable Chew 1 tablet at 0700 on day of capsule endoscopy 1 Tablet 1 Active budesonide (ENTOCORT EC) 3 mg Enteric Coated 24 hour capsule Take 3 Capsules (9 mg) by mouth daily. 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 Family History Medical History Relation Name Comments Cancer Maternal Grandfather Darryn Multipl e myloema Diabetes Maternal Grandfather Darryn Diabetes Maternal Grandmother Selam Relation Name Status Comments Maternal Grandfather Darryn Maternal Grandmother Selam Social History Tobacco Use Types Packs/Day Years Used Date Smoking Tobacco: Never Smokeless Tobacco: Never Alcohol Use Standard Drinks/Week Comments Not Currently 0 (1 standard drink = 0.6 oz pure alcohol) 1-2x a year maybe one glass of wine Comments No Sex and Gender Information Value Date Recorded Sex Assigned at Not on file Legal 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 Gender Identity Not on file Sexual Orientation Not on file Last Filed Vital Signs Vital Sign Reading Time Taken Comments Blood Pressure 99/63 09/03/2020 9:58 AM CDT Pulse 59 09/03/2020 9:58 AM CDT Temperature 37.4 C (99.3 F) 09/03/2020 9:26 AM CDT Respiratory Rate 17 09/03/2020 9:58 AM CDT Oxygen Saturation 100% 09/03/2020 9:58 AM CDT Inhaled Oxygen Concentration - - Weight 61.2 kg (135 lb) 09/03/2020 7:41 AM CDT Height 167.6 cm (5' 6 ) 09/03/2020 7:41 AM CDT Body Mass Index 21.79 09/03/2020 7:41 AM CDT Plan of Treatment Health Maintenance Due Date Last Done Comments HEPATITIS B VACCINES (1 of 3 - 19+ 3-dose series) 08/28/1994 04/07/2005, 01/21/2005, 09/25/2004 PAP SMEAR 10/08/2013 10/08/2010, 10/08/2010 BREAST CANCER SCREENING 2015 CERVICAL CANCER SCREENING 10/09/2015 HPV/Cotest (21-29) 10/09/2015 10/08/2010 HPV/Cotest (30-65) 10/09/2015 10/08/2010 FIT-DNA Q 3 years 08/28/2020 FIT/FOBT Q 1 year 08/28/2020 Flex Sig/CT Colonography Q 5 years 08/28/2020 INFLUENZA VACCINE (#1) 2023 0, 01/18/2018, 12/29/2016 COVID-19 Vaccine ( season) 11/27/202304/2020, 04/29/2020 DTAP/TDAP/TD VACCINES (2 - T d or Tdap) 10/18/2024 10/18/2014, 01/18/2005, 09/25/2004 COLORECTAL SCREENING 09/03/2030 09/03/2020, 09/04/19 Colorectal Cancer Screening 09/03/2030 Medical Devices Implanted Type Area Director Of Patient Care Device Identifier Shelf Expiration Date Model / Serial / Lot Capsule Tee Ph Test [id number] - [id number] Implanted:Qty: 1 on 09/03/2020 by Linsey Schneider MD at [facility] Other N/A: Esophagus [employer] COVIDIEN stock lifter. GIVEN 10/14/2021 [id number]-[id number] / / [id number] Description:placed at 31 cm. 96 hour study off medication. Procedures Procedure Name Priority Date/Time Associated Diagnosis Comments COLONOSCOPY REPORT 09/03/2020 9: 29 AM CDT from Last 3 Months or Most Recently Relevant to Health Maintenance Results * COLONOSCOPY REPORT (09/03/2020 9:29 AM CDT) Narrative Procedure Note Linsey Schneider MD - 09/03/2020 9:28 AM CDT [facility] Patient Name: Nelida Cuenca Procedure Date: 09/03/2020 Date of : 1975 Admit Type: Outpatient Age: 45 Attending MD: Linsey Schneider , Procedure: Colonoscopy Indications: Screening for colorectal malignant neoplasm Providers: Linsey Schneider Referring MD: Genevieve Newman Requesting Provider: Medicines: Monitored Anesthesia Care Complications: No immediate complications. Procedure: After I obtained informed consent, the scope was passed under direct vision. Throughout the procedure, the patient's blood pressure, pulse, and oxygen saturations were monitored continuously. The Colonoscope was introduced through the anus and advanced to the terminal ileum, with identification of the appendiceal orifice and IC valve. The colonoscopy was performed without difficulty. The quality of the bowel preparation was evaluated using the BBPS ([place] Bowel Preparation Scale) with scores of: Right Colon = 3, Transverse Colon = 3 and Left Colon = 3 (entire mucosa seen well with no residual staining, small fragments of stool or opaque liquid). The total BBPS score equals 9. Findings: Hemorrhoids were found on perianal exam. The terminal ileum contained a few ulcers. No bleeding was present. Biopsies were taken with a cold forceps for histology. Verification of patient identification for the specimen was done. Estimated blood loss was minimal. The entire examined colon appeared normal. Biopsies were taken with a cold forceps for histology. Verification of patient identification for the specimen was done. Estimated blood loss was minimal. The retroflexed view of the distal rectum and anal verge was normal and showed no anal or rectal abnormalities. Impression: - Hemorrhoids found on perianal exam. - A few ulcers in the terminal ileum. Biopsied. - The entire examined colon is normal. Biopsied. - The distal rectum and anal verge are normal on retroflexion view. Recommendation: - Discharge patient to home (with escort). - Patient has a contact number available for emergencies. The signs and symptoms of potential delayed complications were discussed with the patient. Return to normal activities tomorrow. Written discharge instructions were provided to the patient. - Resume previous diet. - Continue present medications. - Await pathology results. - Repeat colonoscopy in 10 years for screening purposes. - Return to my office as previously scheduled. Procedure Code(s): --- Professional --- 09175, Colonoscopy, flexible; with biopsy, single or multiple Diagnosis Code(s): --- Professional --- Z12.11, Encounter for screening for malignant neoplasm of colon K64.9, Unspecified hemorrhoids K63.3, Ulcer of intestine CPT copyright 2019 [employer]. All rights reserved. The codes documented in this report are preliminary and upon radio electronics technician review may be revised to meet current compliance requirements. Linsey Schneider, 09/03/2020 9:28:14 AM This report has been signed electronically. Number of Addenda: 0 Estimated Blood Loss: Estimated blood loss was minimal. Linsey Schneider MD GI PROCEDURE ORDERABLES F inal Result from Last 3 Months or Most Recently Relevant to Health Maintenance Insurance Advance Directives For more information, please contact: [phone] * Full Code (Latest Code Status on File) Date Activated Date Inactivated Comments 09/03/2020 7:17 AM 09/03/2020 12:26 PM Care Teams Amortization Schedule Clerk Relationship Specialty Start Date End Date Genevieve Newman APN PCP - General NURSE PRACTITIONER 07/18/20
--- OUTSIDE RECORDS SUMMARY | 2024-07-23 11:04 | XMS_ITS | Encounter Summary ---
Author Organization [facility] Address [address] [place] [address] Care Team Providers Care Molded Frames Assembler Name Role Phone Gneevieve Newman NP Primary Care Provider [phone] Encounter Details Date Type Department Care Team (Late st Contact Info) Description 12/22/2020 iDevicest Message Enc [facility] Medical Group Family Medicine - [place] [address] [facility] [address] [place] [phone] Genevieve Newman, ESMER [address] [place] [address] RE: Follow Up/Update Social History Tobacco Use Types Packs/Day Years [...] on file Legal Sex 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 No / Unsure 12/08/2020 12:59 PM CDT documented as of this encounter Plan of Treatment Not on file documented as of this encounter Visit Diagnoses Not on filedocumented in this encounter Additional Health Concerns Assessment Noted Time PHQ-9 Depression Total Score: 0 05/29/19 2:54 PM VALIDATION CONSULTANT documented as of this encounter Care Teams Molded Frames Assembler Relationship Specialty Start Date End Date Genevieve Newman NP [address] [place] [address] PCP - General NURSE PRACTITIONER 05/27/20 documented as of this encounter
== END 2024-07-23 09:54 | disposition home or self-care (01) ==
PROVIDERS: Visit Provider Anesthesiology
DX: Z01.818 Encounter for other preprocedural examination (principal); E11.9 Type 2 diabetes mellitus without complications
CPT/HCPCS: 36415; 80048

== ENCOUNTER 2024-07-25 08:39 | Day surgery (SDC) | payer OTHER, SELFPAY ==
[2024-07-09 11:06] VITALS: BMI 20.1
[2024-07-25] VITALS (8 sets, daily range): BP systolic 96–110; BP diastolic 55–86; PULSE 71–89; RESP 16–20; TEMP 36.1–36.9; O2SAT 97–100; BMI 19.7
--- NOTE | 2024-07-25 06:51 | WPDANESEPPF ---
Anes - Initial Pre Proc Eval Procedure: Operation Date: 07/25/24 10:30 Proposed Procedures p Right Breast Capsulotomy and Capsulorrhaphy - Cole Mo MD Date/Time: 07/25/24 06:51 Surgeon: Cole Mo MD Pre Op Diagnosis: History of Breast Augmentation Patient Data Age: 48 Gender: F Height: 1.65 m Weight: 55 kg Allergies Allergy/AdvReac Type Severity Reaction Status Date / Time amoxicillin AdvReac Mild Rash Verified 07/25/24 08:59 Home Medications ?Medication ?Instructions ?Recorded ?Confirmed ?Type dextromethorphan IR 45 1 tablet PO BID 12/21/23 07/25/24 History mg-bupropion ER 105 mg biphasic tablet (Auvelity) levothyroxine 88 mcg tablet 88 mcg PO DAILY 12/21/23 07/25/24 History metformin 500 mg tablet 1,000 mg PO DAILY 12/21/23 07/25/24 History multivitamin with minerals-folic 1 tablet PO DAILY 12/21/23 07/25/24 History acid 0.4 mg tablet dextroamphetamine-amphetamine ER 20 mg PO DAILY 07/09/24 07/25/24 History 20 mg 24hr capsule,extend release estradiol 1 mg tablet 1 mg PO DAILY 07/09/24 07/25/24 History progesterone micronized 100 mg 200 mg PO HS 07/09/24 07/25/24 History capsule Patient hx anesthesia problems: none Family hx anesthesia problems: none Results Review: All pre-operative results and documents have been reviewed as part of the pre-operative evaluation. [facility] Past Medical History Medical History (Updated 12/29/23 @ 10:49 by Maxim Hayes DO) ADHD Hypothyroidism Diabetes type 2, controlled Social History Social History Smoking status: Never smoker Second hand tobacco smoke exposure: No Alcohol intake: current Alcohol use details: maybe drinks once a month Substance use: never Substance use type: does not use Living arrangements: with family Spiritual care concerns: No Anes - Eval Final PreProcedure Day of Procedure 07/25/24 06:51 Patient weight: normal Heart: regular rate and rhythm Lungs: clear to auscultation Airway: Mallampati scale class III Neurological: alert and oriented Last oral intake: >/= 8 hours ASA classification: III Emergent: no Anesthetic plan: proceed Anesthesia type and monitoring: general LMA and standard monitoring Results Review: All pre-operative results and documents have been reviewed as part of the pre-operative evaluation. Informed Consent: The patient's anesthetic plan and its attendant risks and benefits were discussed with the patient/family/POA. Questions were solicited and answers provided to the satisfaction of the patient/family/POA.
--- OUTSIDE RECORDS SUMMARY | 2024-07-25 09:05 | XMS_ITS | Encounter Summary ---
Author Organization [facility] Address 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 Phone Number INTERFACE SYSTEM Refer to [...] MD HEMATOLOGY ORDERABLES Edited Performing Organization Address [facility] Phone Number INTERFACE SYSTEM Refer to [...] MD HEMATOLOGY ORDERABLES Edited Performing Organization Address City/[facility]/ZIP Co de Phone Number INTERFACE SYSTEM Refer [...] and non- Americans is available on the [facility] Intranet at: [email or web address] Select: Lab Policies and Procedures Select: Reference [...] MD URINE ORDERABLES Edited Performing Organization Address [facility] [[email or web address]] de Phone Number INTERFACE SYSTEM Refer to [...] MD URINE ORDERABLES Edited Performing Organization Address [facility] Phone Number INTERFACE SYSTEM Refer to clinic/hospital department documented in this encounter Visit Diagnoses Diagnosis Threatened premature labor, antepartum(644.03)- Primary Threatened premature labor, antepartum documented in this encounter Care Teams Returns Processor Relationship Specialty Start Date End Date Genevieve Newman APN PCP - General NURSE PRACTITIONER 07/18/20 documented as of this encounter
--- OUTSIDE RECORDS SUMMARY | 2024-07-25 09:05 | XMS_ITS | Encounter Summary ---
Author Organization [facility] Address [address] [place] [address] Care Team Providers Care Fitness Attendant Name Role Phone Sola Shah RN Unavailable Unavailable Arina Willaim NUT SORTER OPERATOR-[facility] Primary Care Provider + Reason for Visit * Reason Onset Date Comments MEDICATION REFILL 12/07/2018 Refill Request Encounter Details Date Type Department Care Team (Late st Contact Info) Description 12/07/2018 Refill [facility] General Internal Medicine [address] [facility] [address] [place] [address] Nina Chew MD [address] OF [facility] [place] [address] MEDICATION REFILL (Refill Request ) Social History [...] on filedocumented in this encounter Care Teams Fitness Attendant Relationship Specialty Start Date End Date Arina William, TRACI-POSTAL SERVICE WINDOW CLERK PCP - General 12/07/18 Sola Shah RN Registered Nurse 05/03/17 documented as of this encounter
--- OUTSIDE RECORDS SUMMARY | 2024-07-25 09:05 | XMS_ITS | Encounter Summary ---
Author Organization [facility] Address 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 [address]/[facility] Phone Number INTERFACE SYSTEM Refer to clinic/hospital [...] HEMATOLOGY ORDERABLES Final Result Performing Organization Address City/[facility] [address]/[facility] Co de Phone Number INTERFACE SYSTEM Refer [...] HEMATOLOGY ORDERABLES Final Result Performing Organization Address City/[facility] [address]/[facility] de Phone Number INTERFACE SYSTEM Refer to clinic/hospital department documented in this encounter Visit Diagnoses Diagnosis Other specified malposition or malpresentation of fetus, delivered- Primary documented in this encounter Care Teams Merchant Miller Relationship Specialty Start Date End Date Genevieve Newman APN PCP - General NURSE PRACTITIONER 07/18/20 documented as of this encounter
--- OUTSIDE RECORDS SUMMARY | 2024-07-25 09:05 | XMS_ITS | Encounter Summary ---
Author Organization [facility] Address [address] [place] [address] Care Team Providers Care Watch Mechanic Name Role Phone Genevieve Newman NP Primary Care Provider [phone] Encounter Details Date Type Department Care Team (Late st Contact Info) Description 11/07/2021 [employer] Light[employer] Message Enc [facility] Medical Group Family Medicine - [place] [address] [facility] [address] [place] [id number] Genevieve Newman NP [address] [place] [address] Question regarding TSH W/REFLEX Social History Tobacco [...] on file Legal Sex Female 9:35 AM OCEAN TRANSPORTATION INTERMEDIARY Gender Identity Not on file Sexual Orientation Not on file documented as of this encounter Plan of Treatment Not on file documented as of this encounter Visit Diagnoses Not on filedocumented in this encounter Additional Health Concerns Assessment Noted Time PHQ-9 Depression Total Score: 0 05/29/19 21 2:54 PM OCEAN TRANSPORTATION INTERMEDIARY documented as of this encounter Care Teams Watch Mechanic Relationship Specialty Start Date End Date Genevieve Newman NP [address] [place] [address] PCP - General NURSE PRACTITIONER 05/27/20 documented as of this encounter
--- OUTSIDE RECORDS SUMMARY | 2024-07-25 09:05 | XMS_ITS | Clinical Summary ---
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 For additional information please refer to http://education.Beyond.com/faq/MYF06d6 (This link is being provided for informational/ educational purposes only.) 11/06/2021 7:44 AM CDT 11/06/2021 7:45 AM CDT Narrative [facility] - [facility] - 11/07/2021 12:54 PM CDT FASTING:YES FASTING: YES us Genevieve Newman NP LABORATORY Final Res ult [facility] - LOAN ORDERS [facility] [address] [place] [address] * COLONOSCOPY GENERIC (09/03/2020) 09/03/2020 Narrative 09/03/2020 Ordered by an unspecified provider. us Documents Scanned SCANNING Final Result from Last 3 Months or Most Recently Relevant to Health Maintenance Insurance [facility] Care Teams Rn Anesthetist Relationship Specialty Start Date End Date Genevieve Newman NP [address] [place] [address] PCP - General NURSE PRACTITIONER 05/27/20
--- OUTSIDE RECORDS SUMMARY | 2024-07-25 09:05 | XMS_ITS | Clinical Summary ---
Author Organization [facility] Address [address] [facility] [place] [address] Care Team Providers Care Teaseler Name Role Phone Sola Shah RN Unavailable Unavailable Arina William OPERATIONS SUPERVISOR 2ND SHIFT-COOPERAGE SHOP SUPERVISOR Primary Care Provider + Source Comments [facility],non-owned Affiliates and Associated Physician Practices is amultiple site organization consisting of ambulatory clinics and hospital sitesin [place], [place], [place] and [place]. This disclosure is being madepursuant to the Care Everywhere program and may not contain all information available regarding this patient. Last updated 17.[facility] Allergies Active Allergy Reactions Criticality Noted Date Comments Aspirin Swelling 04/26/2018 Wheat Bran GI Discomfort 04/26/2018 Medications * Be aware that medications may not be up to date on this document. Alwaysverify current medications with the patient. multivitamin daily tablet Take 1 tablet by mouth daily with food Active [place]-3 Fatty Acids (FISH OIL PO) Active B [...] Oxygen Concentration 100% 05/31/2017 6 :57 AM AMMUNITION ASSEMBLY II LABORER Weight 61.7 kg (136 lb) 09/05/2018 8:47 [...] Comments LIPID PROFILE Routine 02/10/2018 12:00 AM AMMUNITION ASSEMBLY II LABORER Screening for lipoid disorders HEPATITIS C ANTIBODY Routine 11/16/2017 8:30 AM CDT Well woman exam with routine gynecological exam HIV-1 HIV-2 ANTIBODY W REFLX Routine 11/16/2017 8:30 AM CDT Well woman exam with routine gynecological exam from Last 3 Months or Most Recently Relevant to Health Maintenance Results * (ABNORMAL) LIPID PROFILE (02/10/2018 12:00 AM AMMUNITION ASSEMBLY II LABORER) Cholesterol 211(H) 100 - 199 mg/dL [facility] [...] Unknown 02/10/2018 02/10/2018 Narrative Resulting Agency [facility] [address] [facility] [id number] us Braulio Mesa DO LAB - CHEMISTRY ORDERABLES Final Result [facility] INSURANCE BILL [address] [place] [address] * HIV-1 HIV-2 ANTIBODY W REFLX (11/16/2017 8:30 AM CDT) HIV-1 Antibody Negative Negative [facility] INSURANCE BILL HIV-2 Antibody Negative Negative [facility] INSURANCE BILL Interpretation Negative [facility] INSURANCE BILL Comment:See RNA Reflex. Blood BLOOD SPECIMEN / Unknown 11/16/2017 8:30 AM CDT 11/16/2017 Narrative Resulting Agency [facility] [address] [facility] [id number] Tamika MICHAELSCNM LAB - SEROLOGY ORDERABLES Final Result [facility] INSURANCE BILL [address] [place] [address] * HEPATITIS C ANTIBODY (11/16/2017 8:30 AM CDT) Hepatitis C Antibody <0.1 0.0 - 0.9 s/co ratio [facility] INSURANCE BILL Comment: Negative: < 0.8 Indeterminate: 0.8 - 0.9 Positive: > 0.9 . The CDC recommends that a positive HCV antibody result be followed up with a HCV Nucleic Acid Amplification test (728363). Blood BLOOD SPECIMEN / Unknown 11/16/2017 8:30 AM CDT 11/16/2017 Narrative Resulting Agency Comment [facility] [address] [facility] [id number] Tamika Willams OPERATIONS SUPERVISOR 2ND SHIFT-CNM LAB - CHEMISTRY ORDERABLES Final Result [facility] INSURANCE BILL [address] [place] [address] from Last 3 Months or Most Recently Relevant to Health Maintenance Insurance [employer] [facility] Member Subscriber Plan / Payer (Ef fective 2016-Present) Name:Nelida Montez Relation to Subscriber:Self Name:Nelida Montez Payer ID:[id number] (NAIC) Type:HMO Address: [place] [id number] [facility] Advance Directives * Full Code (Latest Code Status on File) Date Activated Date Inactivated Comments 05/03/2017 1:35 PM 05/06/2017 5:28 PM * Full Code Date Activated Date Inactivated Comments 04/29/2017 1:32 PM 04/30/2017 1:30 PM Care Teams Teaseler Relationship Specialty Start Date End Date Arina William, OPERATIONS SUPERVISOR 2ND SHIFT-COOPERAGE SHOP SUPERVISOR PCP - General 12/07/18 Sola Shah, RN Registered Nurse 05/03/17
--- OUTSIDE RECORDS SUMMARY | 2024-07-25 09:05 | XMS_ITS | Encounter Summary ---
Author Organization [facility] Address 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
--- OUTSIDE RECORDS SUMMARY | 2024-07-25 09:06 | XMS_ITS | Data Portability ---
Author Organization [facility], [place] Address [address] [place] [address] [place] [address] Assessment Encounter Date Assessment Date Assessment LastModified by Organization Details LastModified Time 10/24/2020 10/24/2020 Annual gynecological exam performed. Patient will come back in a year unless there are new symptoms. Suggest Calcium with Vitamin D if not eating in diet. Patient advised to get annual flu shot. Recommend yearly physicals and preform monthly breast exams. Genetic testing is available for patients with family history of cancer. Engage in safe sexual practices, use condoms. Encouraged to have daily exercise. Avoid tobacco and illicit drugs, moderation of alcohol. If BMI greater than 25 dietary consult advised. If you have any questions please call or email. Not available 10/24/2020 14:30:15 Plan of Treatment Reminders Order Date Submit Date Provider Last Modified By Organization Details Last Modified Time Details Appointments None recorded. Lab None recorded. Referral None recorded. Procedures None recorded. Surgeries None recorded. Imaging US, transvagina l 2022 023 [email or web address] [place], [address], [place], [address], 3 23:20:55 Medication Orders Mounjaro 2.5 mg/0.5 mL subcutaneou s pen injector 2021 022 [email or web address] 1 [id number], [address], [place], [place], [id number], 01/10/202 3 14:09:43 Loprox 1 % shampoo [address] [id number], [address] [facility], [place], [place], [id number], 3 14:09:09 clobetasol 0.05 % scalp solution [address] [facility][id number], [address] [facility], [place], [place], [id number], 3 14:09:13 pimecrolimu s 1 % topical cream [address] [facility][id number], [address] [facility], [place], [place], [id number], 3 14:10:44 Patient TargetsNo targets recorded. Patient InstructionsNo instructions recorded. Reason for Referral None Reported. Results Created Date Observation Date Name Description Value Unit Range Abnormal Flag Note LastModifiedBy Organization Detail LastModifiedTime 10/25/19 21 10/24/2020 IMAGE GUIDE D PAP AND HPV REGAR DLESS image guided Pap, HPV regardless of Pap result SEE RESULT S BELOW CASE REPOR T: Cytol ogy Gynec ologi faith Repor t Case: [id number] Autho juliet garcia Provi rafa: Rocio Saravia NP Colle cted: 10/24 1445 Order ing Locat ion: [place] [facility] Recei carol: 10/25 0427 First Scree n: Isabelle Barry Speci men: Scree clay Pap - Image d, Cervi x STATE MENT OF ADEQU ACY: Satis facto ry for evalu ation Trans forma tion zone compo nent prese nt FINAL DIAGN OSIS: Negat migel for Intra epith elial Lesio n or Malig izabela Elect jyoti terry abel d by Isabelle Barry on at 8:57 PM ----- ----- ----- ----- ----- ----- ----- ----- ----- ----- ----- ----- ----- ----- ----- ----- ----- ---- HPV RESUL TS: HPV mRNA E6/E7 : No HPV mRNA Detec jasper NOTE: This high risk HPV mRNA assay detec ts fourt een high- risk HPV types (16, 18, 31, 33, 35, 39, 45, 51, 52, 56, 58, 59, 66, 68) witho ut diffe renti ation . CHART ABLE COMME NT: Note: This speci men was revie wed by a Cytot echno logis t and/o r Patho logis t (as indic ated in this repor t) after evalu ation using the Thinp rep Imagi ng Syste m. CLINI FAITH INFOR MATIO N: Menst rual Statu s: LMP (if appli cable ): Clini faith Histo ry/Pr eviou s Pap: Type of Neopl jade (if appli cable ): Signi fican t Clini faith Findi ngs: Other Histo ry: Hormo valeria (if appli cable ): PAP EDUCA AMANDA L NOTE: The Pap Test is a scree clay test with an inher ent false negat migel rate. Liqui d-bas e sampl ing may decre ase, but will not elimi miko, false negat migel resul ts. A negat migel resul t does not precl ude the prese nce and/o r devel opmen t of disea se, since the prese nce of abnor mal cells in the sampl e depen ds on the locat ion of the lesio n and sampl ing techn ique. Naveen nued regul ar scree clay is the best metho d of cance r preve ntion . If repor jasper cytol ogic findi ng do not corre late with physi faith and/o r histo rical findi ngs, [facility] er inves tigat ion is recom papo d, as clini nneka velazquez nted. Not Available [facility] (Lab) [address], [place], [address], 10/27/2020 22:00:23 12/30/19 22 12/29/2021 TSH, REFLE X FREE T4 TSH 0.38 uIU/m L 0.30-[address] [facility] Infect[facility] [address] [place], [address], 12/30/2021 06:32:42 12/30/19 22 12/29/2021 THYRO ID ANTIB SHERIF PANEL thyroglobuli n antibody <1.0 IU/mL 0.0-4. [address] [facility] Infectious Disease [address] [place], [address], 12/30/2021 06:32:43 12/30/19 22 12/29/2021 THYRO ID ANTIB SHERIF PANEL thyroperoxid ase antibodies 0.4 IU/mL 0.0-9. 0 This assay was perfo rmed using [employer] an Coul[employer] er reage nts and test kits. Value s obtai mliena with other assay metho ds or kits canno t be used inter martinez eably . Not Available [facility] Infectious Disease [address] [place], [address], 12/30/2021 06:32:43 03/18/20 22 03/18/2022 GLUCO SE, FASTI NG glucose, fasting 85 mg/dL 70-100 Not Available [facility] (Lab) [address] [facility], [place], [address], 03/19/2022 08:28:32 03/18/20 22 03/18/2022 TSH, REFLE X FREE T4 TSH 1.25 uIU/m L 0.30-5 .33 Not Available [facility] (Lab) [address] [facility], [place], [address], 03/19/2022 08:28:33 03/18/20 22 03/18/2022 HEMOG LOBIN A1C hemoglobin A1C 5.7 % 0-5.6 high The Ameri can Diabe estefania Assoc iatio n recom mends that a prima ry goal of thera py nelson carpenter be a HBA1C of < 7% and that physi cians nelson d reeva luate the treat ment regim en in patie nts with HBA1C value s consi stent ly > 8%. <5.7% Magaly l 5.7 - 6.4% Incre ased risk for diabe estefania >=6.5 % Diagn ostic of diabe estefania <7.0% Goal of thera py >8.0% Actio n sugge sted Not Available [facility] (Lab) [address], [place], [address], 03/19/2022 08:28:33 05/25/19 24 05/25/2023 C-PEP TIDE C-peptide 5.58 NG/mL 1.1-4. 4 high Not Available [facility] (Lab) [address], [place], [address], 05/26/2023 03:22:26 05/25/19 24 05/25/2023 INSUL IN,FA STING insulin, fasting 39.3 uIU/m L 1.9-23 .0 high Not Available [facility] (Lab) [address], [place], [address], 05/26/2023 03:22:27 06/02/19 24 06/02/2023 CBC W/DIF F WBC 7.5 10'3/ uL 3.5-10 .5 Not Available [facility] (Lab) [address] [place], [address], 06/03/2023 07:05:07 06/02/19 24 06/02/2023 CBC W/DIF F RBC 4.49 10'6/ uL (based on docume nted legal sex) 3.80-5 .20 Not Available [facility] (Lab) [address] [place], [address], 06/03/2023 07:05:07 06/02/19 24 06/02/2023 CBC W/DIF F HGB 13.8 g/dL (based on docume nted legal sex) 11.6-1 5.4 Not Available [facility] (Lab) [address], [place], [address], 06/03/2023 07:05:07 06/02/19 24 06/02/2023 CBC W/DIF F HCT 42.4 % (based on docume nted legal sex) 34.0-4 5.0 Not Available [facility] (Lab) [address], [place], [address], 06/03/2023 07:05:07 06/02/19 24 06/02/2023 CBC W/DIF F MCV 94.4 fL 80.0-9 9.0 Not Available [facility] (Lab) [address], [place], [address], 06/03/2023 07:05:07 06/02/19 24 06/02/2023 CBC W/DIF F MCH 30.7 pg 27.0-3 4.0 Not Available [facility] (Lab) [address], [place], [address], 06/03/2023 07:05:07 06/02/19 24 06/02/2023 CBC W/DIF F MCHC 32.5 g/dL 32.0-3 5.5 Not Available [facility] (Lab) [address], [place], [address], 06/03/2023 07:05:07 06/02/19 24 06/02/2023 CBC W/DIF F RDW 12.9 % 11.0-1 5.0 Not Available [facility] (Lab) [address], [place], [address], 06/03/2023 07:05:07 06/02/19 24 06/02/2023 CBC W/DIF F plt 382 10'3/ uL 150-40 0 Not Available [facility] (Lab) [address] [facility], [place], [address], 06/03/2023 07:05:07 06/02/19 24 06/02/2023 CBC W/DIF F MPV 10.4 fL 8.8-12 .1 Not Available [facility] (Lab) [address] [facility], [place], [address], 06/03/2023 07:05:07 06/02/19 24 06/02/2023 CBC W/DIF F NRBC's 0.0 % 0.0 Not Available [facility] (Lab) [address] [facility], [place], [address], 06/03/2023 07:05:07 06/02/19 24 06/02/2023 CBC W/DIF F absolute NRBCs 0.0 10'3/ uL 0.0 Not Available [facility] (Lab) [address] [facility], [place], [address], 06/03/2023 07:05:07 06/02/19 24 06/02/2023 CBC W/DIF F neutrophils 69.1 % 34.0-7 3.0 Not Available [facility] (Lab) [address] [facility], [place], [address], 06/03/2023 07:05:07 06/02/19 24 06/02/2023 CBC W/DIF F lymphocytes 23.2 % 15.0-5 0.0 Not Available [facility] (Lab) [address] [facility], [place], [address], 06/03/2023 07:05:07 06/02/19 24 06/02/2023 CBC W/DIF F monocytes 5.9 % 1.0-15 .0 Not Available [facility] (Lab) [address] [facility], [place], [address], 06/03/2023 07:05:07 06/02/19 24 06/02/2023 CBC W/DIF F eosinophils 0.7 % 0.0-8. 0 Not Available [facility] (Lab) [address] [facility], [place], [address], 06/03/2023 07:05:07 06/02/19 24 06/02/2023 CBC W/DIF F basophils 0.8 % 0.0-2. 0 Not Available [facility] (Lab) [address] [facility], [place], [address], 06/03/2023 07:05:07 06/02/19 24 06/02/2023 CBC W/DIF F immature granulocytes 0.3 % no define d refere nce range Not Available [facility] (Lab) [address] [facility], [place], [address], 06/03/2023 07:05:07 06/02/19 24 06/02/2023 CBC W/DIF F absolute neutrophils 5.2 10'3/ uL 1.5-8. 0 Not Available [facility] (Lab) [address] [facility], [place], [address], 06/03/2023 07:05:07 06/02/19 24 06/02/2023 CBC W/DIF F absolute lymphocytes 1.7 10'3/ uL 1.0-4. 0 Not Available [facility] (Lab) [address] [facility], [place], [address], 06/03/2023 07:05:07 06/02/19 24 06/02/2023 CBC W/DIF F absolute monocytes 0.4 10'3/ uL 0.2-1. 0 Not Available [facility] (Lab) [address] [place], [address], 06/03/2023 07:05:07 06/02/19 24 06/02/2023 CBC W/DIF F absolute eosinophils 0.1 10'3/ uL 0.0-0. 6 Not Available [facility] (Lab) [address] [place], [address], 06/03/2023 07:05:07 06/02/19 24 06/02/2023 CBC W/DIF F absolute basophils 0.1 10'3/ uL 0.0-0. 3 Not Available [facility] (Lab) [address] [facility], [place], [address], 06/03/2023 07:05:07 06/02/19 24 06/02/2023 CBC W/DIF F absolute immature granulocytes 0.0 10'3/ uL 0.00-0 .10 024 4:58 AM: P indic ates parti al resul ts on a panel have been relea sed. Addit ional resul ts will follo w. 024 4:58 AM: This resul t has been final verif ied. No addit ional or martinez ed resul ts are expec jasper. Not Available [facility] (Lab) [address], [place], [address], 06/03/2023 07:05:07 06/02/19 24 06/02/2023 LIPID PANEL ,AMA (LDL- CALC) total cholesterol 191 mg/dL 0-199 Not Available [facility] (Lab) [address] [facility], [place], [address], 06/03/2023 07:05:08 06/02/19 24 06/02/2023 LIPID PANEL ,AMA (LDL- CALC) triglyceride s 247 mg/dL 0.00-1 50.00 high NCEP Refer ence Value s for Trigl yceri cassandra: Magaly l: <150 mg/dL Borde rline High: 150 - 199 mg/dL High: 200 - 499 mg/dL Very High: >/= 500 mg/dL Not Available [facility] (Lab) [address] [facility], [place], [address], 06/03/2023 07:05:08 06/02/19 24 06/02/2023 LIPID PANEL ,AMA (LDL- CALC) HDL cholesterol 75 mg/dL >40 Not Available [facility] (Lab) [address] [facility], [place], [address], 06/03/2023 07:05:08 06/02/19 24 06/02/2023 LIPID PANEL ,AMA (LDL- CALC) LDL cholesterol 82 mg/dL 0-99 Cutof f value s recom papo d by the Natio nal Belén stero l Educa tion Progr am: ERWIN ABLE: Belén stero l <200 mg/dL LDL <100 mg/dL BORDE RLINE : Belén stero l 200-2 39 mg/dL LDL 101-1 59 mg/dL HIGHE R RISK: Belén stero l >240 mg/dL LDL >160 mg/dL , HDL <40 mg/dL Not Available [facility] (Lab) [address] [facility], [place], [address], 06/03/2023 07:05:08 06/02/1906/02/2023 LIPID PANEL ,AMA (LDL- CALC) non-HDL cholesterol 116 mg/dL no refere nce range A reaso nable goal for non-H DL belén stero l is one that is 30 mg/dL highe r than the LDL belén stero l goal. Not Available [facility] (Lab) [address] [facility], [place], [address], 06/03/2023 07:05:08 06/02/1906/02/2023 LIPID PANEL ,AMA (LDL- CALC) chol/HDL ratio 2.5 . 0.0-5. 0 On July 20, 2022, [facility] labor atori tabatha martinez ed the equat ion for calcu latin g estim ated low-d ensit y lipop rotei n-cho leste rol (LDL- C) from the Fried andreas equat ion to the Tami n/Hop anton equat ion. This new equat ion is only valid for lipid panel s with trigl yceri cassandra < 400 mg/dL . Reinieri es virgen schmidton tovat ed that this new equat ion will impro ve the accur acy of LDL-C , espec ially in scena wetzel when LDL-C dominic ntrat ions are relat ively low (< 100 mg/dL ), trigl yceri cassandra are eleva jasper, or patie nt is non-f astin g. Refer ences : - Tami razo, Eugene Acosta, Napoleon Izaguirre , Kori mayo, Tanmay Romero, Tanmay thompson, [facility]f [facility] , and Americo Rodriguez . 2013. Comp ariso n of a Novel Metho d vs the Fried andreas Equat ion for Estim ating Low-D ensit y Lipop rotei n Belén stero l Level s from the Stand saeid Lipid Profmarcin le. TANNER: The Journ al of the Ameri can Medic al Assoc iatio n 310 (19): 2060- . - Kevin felix V, Naty J, Flora felix A, Sarah M, Luis mckinnon R, Clementine felix E, Yumiko [facility] RS, Michael SR, Tami razo SS. Fast ing Versu s Nonfa sting and Low-D ensit y Lipop rotei n Belén stero l Accur acy. Circu latio n. 2017Mar 29;137 (1):1 0-19. Not Available [facility] (Lab) [address] [facility], [place], [address], 06/03/2023 07:05:08 06/02/19 24 06/02/2023 CMP(C OMPRE HENSI VE METAB OLIC PANEL ) sodium 142 mmol/ L 133-14 6 Not Available [facility] (Lab) [address] [place], [address], 06/03/2023 07:05:09 06/02/19 24 06/02/2023 CMP(C OMPRE HENSI VE METAB OLIC PANEL ) potassium 4.8 mmol/ L 3.5-5. 1 Not Available [facility] (Lab) [address] [place], [address], 06/03/2023 07:05:09 06/02/19 24 06/02/2023 CMP(C OMPRE HENSI VE METAB OLIC PANEL ) chloride 102 mmol/ L 98-107 Not Available [facility] (Lab) [address] [place], [address], 06/03/2023 07:05:09 06/02/19 24 06/02/2023 CMP(C OMPRE HENSI VE METAB OLIC PANEL ) carbon dioxide 31 mmol/ L 21-31 Not Available [facility] (Lab) [address], [place], [address], 06/03/2023 07:05:09 06/02/19 24 06/02/2023 CMP(C OMPRE HENSI VE METAB OLIC PANEL ) anion gap 9 mmol/ L 4-13 Not Available [facility] (Lab) [address] [facility], [place], [address], 06/03/2023 07:05:09 06/02/19 24 06/02/2023 CMP(C OMPRE HENSI VE METAB OLIC PANEL ) blood urea nitrogen 14 mg/dL 7-25 Not Available [facility] (Lab) [address] [facility], [place], [address], 06/03/2023 07:05:09 06/02/19 24 06/02/2023 CMP(C OMPRE HENSI VE METAB OLIC PANEL ) creatinine 0.77 mg/dL 0.60-1 .30 Not Available [facility] (Lab) [address] [facility], [place], [address], 06/03/2023 07:05:09 06/02/19 24 06/02/2023 CMP(C OMPRE HENSI VE METAB OLIC PANEL ) egfrcr (CKD-epi 2020) >90 mL/mi n/1.7 3_m2 >=60 Not Available [facility] (Lab) [address] [facility], [place], [address], 06/03/2023 07:05:09 06/02/19 24 06/02/2023 CMP(C OMPRE HENSI VE METAB OLIC PANEL ) calcium 9.6 mg/dL 8.3-10 .5 Not Available [facility] (Lab) [address] [facility], [place], [address], 06/03/2023 07:05:09 06/02/19 24 06/02/2023 CMP(C OMPRE HENSI VE METAB OLIC PANEL ) glucose 82 mg/dL 70-100 Not Available [facility] (Lab) [address] [facility], [place], [address], 06/03/2023 07:05:09 06/02/19 24 06/02/2023 CMP(C OMPRE HENSI VE METAB OLIC PANEL ) protein, total 6.2 g/dL 6.4-8. 3 low Not Available [facility] (Lab) [address] [place], [address], 06/03/2023 07:05:09 06/02/19 24 06/02/2023 CMP(C OMPRE HENSI VE METAB OLIC PANEL ) albumin 4.1 g/dL 3.5-5. 0 Not Available [facility] (Lab) [address] [place], [address], 06/03/2023 07:05:09 06/02/19 24 06/02/2023 CMP(C OMPRE HENSI VE METAB OLIC PANEL ) ALT 63 units /L 9-43 high Not Available [facility] (Lab) [address] [place], [address], 06/03/2023 07:05:09 06/02/19 24 06/02/2023 CMP(C OMPRE HENSI VE METAB OLIC PANEL ) alkaline phosphatase 64 units /L 34-104 Not Available [facility] (Lab) [address] [place], [address], 06/03/2023 07:05:09 06/02/19 24 06/02/2023 CMP(C OMPRE HENSI VE METAB OLIC PANEL ) AST 41 units /L 13-39 high Not Available [facility] (Lab) [address] [place], [address], 06/03/2023 07:05:09 06/02/19 24 06/02/2023 CMP(C OMPRE HENSI VE METAB OLIC PANEL ) bilirubin, total 0.3 mg/dL 0.2-1. 2 Not Available [facility] (Lab) [address] [facility], [place], [address], 06/03/2023 07:05:09 06/02/19 24 06/02/2023 T4 FREE T4, free 1.13 NG/dL 0.60-1 .40 This assay is susce ptibl e to inter feren ce from high level s of bioti n which may false ly eleva te resul ts. Pleas e corre late with clini faith findi ngs. Not Available [facility] (Lab) [address] [facility], [place], [address], 06/03/2023 07:05:09 06/02/19 24 06/02/2023 TSH, REFLE X FREE T4 TSH 0.18 uIU/m L 0.30-5 .33 low Not Available [facility] (Lab) [address] [facility], [place], [address], 06/03/2023 07:05:09 06/02/19 24 06/02/2023 VITAM IN D, 25-OH (TOTA L D2/D3 ) vitamin D, 25-hydroxy, total 93.6 NG/mL 30.0-1 00.0 Sugge stive of Defic iency : <20 ng/mL Sugge stive of Insuf ficie ncy: 20-29 ng/mL Sugge stive of Suffi cienc y: 30-10 0 ng/mL Sugge stive of Toxic ity: >150 ng/mL Not Available [facility] (Lab) [address] [facility], [place], [address], 06/03/2023 07:05:10 06/02/19 24 06/02/2023 HEMOG LOBIN A1C hemoglobin A1C 5.5 % 0-5.6 The Ameri can Diabe estefania Assoc iatio n recom mends that a prima ry goal of thera felipe damon d be a HBA1C of < 7% and that physi cians shoul d reeva luate the treat ment regim en in patie nts with HBA1C value s consi stent ly > 8%. <5.7% Magaly l 5.7 - 6.4% Incre ased risk for diabe estefania >=6.5 % Diagn ostic of diabe estefania <7.0% Goal of thera py >8.0% Actio n sugge sted Not Available [facility] (Lab) [address] [facility], [place], [address], 06/03/2023 07:05:10 08/09/19 24 08/09/2023 CMP(C OMPRE HENSI VE METAB OLIC PANEL ) sodium 141 mmol/ L 133-14 6 Not Available [facility] (Lab) [address] [facility], [place], [address], 08/12/2023 20:28:58 08/09/19 24 08/09/2023 CMP(C OMPRE HENSI VE METAB OLIC PANEL ) potassium 4.1 mmol/ L 3.5-5. 1 Not Available [facility] (Lab) [address] [facility], [place], [address], 08/12/2023 20:28:58 08/09/19 24 08/09/2023 CMP(C OMPRE HENSI VE METAB OLIC PANEL ) chloride 103 mmol/ L 98-107 Not Available [facility] (Lab) [address] [place], [address], 08/12/2023 20:28:58 08/09/19 24 08/09/2023 CMP(C OMPRE HENSI VE METAB OLIC PANEL ) carbon dioxide 29 mmol/ L 21-31 Not Available [facility] (Lab) [address] [place], [address], 08/12/2023 20:28:58 08/09/19 24 08/09/2023 CMP(C OMPRE HENSI VE METAB OLIC PANEL ) anion gap 9 mmol/ L 4-13 Not Available [facility] (Lab) [address] [place], [address], 08/12/2023 20:28:58 08/09/19 24 08/09/2023 CMP(C OMPRE HENSI VE METAB OLIC PANEL ) blood urea nitrogen 13 mg/dL 7-25 Not Available [facility] (Lab) [address] [facility], [place], [address], 08/12/2023 20:28:58 08/09/19 24 08/09/2023 CMP(C OMPRE HENSI VE METAB OLIC PANEL ) creatinine 0.86 mg/dL 0.60-1 .30 Not Available [facility] (Lab) [address] [facility], [place], [address], 08/12/2023 20:28:58 08/09/19 24 08/09/2023 CMP(C OMPRE HENSI VE METAB OLIC PANEL ) egfrcr (CKD-epi 2020) 84 mL/mi n/1.7 3_m2 >=60 Not Available [facility] (Lab) [address] [facility], [place], [address], 08/12/2023 20:28:58 08/09/19 24 08/09/2023 CMP(C OMPRE HENSI VE METAB OLIC PANEL ) calcium 9.6 mg/dL 8.3-10 .5 Not Available [facility] (Lab) [address] [facility], [place], [address], 08/12/2023 20:28:58 08/09/19 24 08/09/2023 CMP(C OMPRE HENSI VE METAB OLIC PANEL ) glucose 105 mg/dL 70-100 high Not Available [facility] (Lab) [address] [facility], [place], [address], 08/12/2023 20:28:58 08/09/19 24 08/09/2023 CMP(C OMPRE HENSI VE METAB OLIC PANEL ) protein, total 6.3 g/dL 6.4-8. 3 low Not Available [facility] (Lab) [address] [facility], [place], [address], 08/12/2023 20:28:58 08/09/19 24 08/09/2023 CMP(C OMPRE HENSI VE METAB OLIC PANEL ) albumin 4.2 g/dL 3.5-5. 0 Not Available [facility] (Lab) [address] [facility], [place], [address], 08/12/2023 20:28:58 08/09/19 24 08/09/2023 CMP(C OMPRE HENSI VE METAB OLIC PANEL ) ALT 19 units /L 9-43 Not Available [facility] (Lab) [address] [facility], [place], [address], 08/12/2023 20:28:58 08/09/19 24 08/09/2023 CMP(C OMPRE HENSI VE METAB OLIC PANEL ) alkaline phosphatase 70 units /L 34-104 Not Available [facility] (Lab) [address] [facility], [place], [address], 08/12/2023 20:28:58 08/09/19 24 08/09/2023 CMP(C OMPRE HENSI VE METAB OLIC PANEL ) AST 19 units /L 13-39 Not Available [facility] (Lab) [address] [facility], [place], [address], 08/12/2023 20:28:58 08/09/19 24 08/09/2023 CMP(C OMPRE HENSI VE METAB OLIC PANEL ) bilirubin, total 0.5 mg/dL 0.2-1. 2 Not Available [facility] (Lab) [address] [place], [address], 08/12/2023 20:28:58 08/09/19 24 08/09/2023 TSH TSH 0.23 uIU/m L 0.30-5 .33 low Not Available [facility] (Lab) [address] [place], [address], 08/12/2023 20:28:58 08/09/19 24 08/09/2023 T3 TOTAL T3 total 133 NG/dL 80-200 This assay is susce ptibl e to inter feren ce from high level s of bioti n which may false ly eleva te resul ts. Pleas e corre late with clini faith findi ngs. Not Available [facility] (Lab) [address] [place], [address], 08/12/2023 20:28:59 08/09/19 24 08/09/2023 T4 FREE T4, free 1.06 NG/dL 0.60-1 .40 This assay is susce ptibl e to inter feren ce from high level s of bioti n which may false ly eleva te resul ts. Pleas e corre late with clini faith findi ngs. Not Available [facility] (Lab) [address] [place], [address], 08/12/2023 20:28:59 08/09/19 24 08/09/2023 THYRO ID ANTIB SHERIF PANEL thyroglobuli n antibody <1.0 IU/mL <=3.9 Not Available [facility] (Lab) [address] [place], [address], 08/12/2023 20:29:00 08/09/19 24 08/09/2023 THYRO ID ANTIB SHERIF PANEL thyroperoxid ase antibodies <0.3 IU/mL 0.0-9. 0 This assay was perfo rmed using Beckm an Coult er reage nts and test kits. Value s obtai milena with other assay metho ds or kits canno t be used inter martinez eably . Not Available [facility] (Lab) [address] [place], [address], 08/12/2023 20:29:00 08/09/19 24 08/09/2023 CREAT INE KINAS E (CK) ISOEN ZYME PANEL creatine kinase, total 139 U/L 29-143 Not Available [facility] (Lab) [address] [place], [address], 08/12/2023 20:29:00 08/09/19 24 08/09/2023 CREAT INE KINAS E (CK) ISOEN ZYME PANEL CK-bb NONE DETECT ED %_of_ total none detect ed Not Available [facility] (Lab) [address] [facility], [place], [address], 08/12/2023 20:29:00 08/09/19 24 08/09/2023 CREAT INE KINAS E (CK) ISOEN ZYME PANEL CK-mb 0 %_of_ total <5 Not Available [facility] (Lab) [address] [facility], [place], [address], 08/12/2023 20:29:00 08/09/19 24 08/09/2023 CREAT INE KINAS E (CK) ISOEN ZYME PANEL CK-mm 100 %_of_ total 95-100 Perfo rming Organ izati on Infor matio n: Site ID: EZ Name: [facility]Efren erik C-S [facility] [place] , Addre ss: [id number] [place] [address] Direc tor: Dina rodriges MD,Ph D,KESHAV Not Available [facility] (Lab) [address] [facility], [place], [address], 08/12/2023 20:29:00 06/04/19 23 06/02/2022 imagi ng/di agnos tic resul t No observ ation record ed. [facility] [address], [place], [address], 05/01/2023 18:48:09 06/04/19 23 06/02/2022 imagi ng/di agnos tic resul t No observ ation record ed. [facility] [address], [place], [address], 05/01/2023 18:48:10 10/06/19 23 10/05/2022 US, trans vagin al No observ ation record ed. [email or web address] [place] [address], [place], [address], 10/05/2022 17:17:26 10/06/19 23 10/05/2022 US, trans vagin al No observ ation record ed. [address], [place], [address], 10/14/2022 13:56:38 09/16/19 24 09/16/2023 MAMMO , scree clay, bilat eral No observ ation record ed. [facility] [address], [place], [address], 10/16/2023 19:44:38 09/17/19 24 09/16/2023 MAMMO , scree clay, bilat eral No observ ation record ed. [facility] [address], [place], [address], 10/16/2023 19:45:13 Result Notes None recorded. 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 16:28:36 Problem Notes None recorded. Procedures Surgical History Date Name Laterality Status Provider Name and Address Organization Details Recorded Time 10/25/19 21 Date of Last Pap Smear completed Maria M Travis [facility] 10/24/2020 14:22:37 09/05/19 21 Date of Last Mammogram completed Maria M Travis [facility] 10/24/2020 16:37:06 08/05/19 21 completed Piedad Timmons [facility] 01/28/2022 09:15:59 decompression of thoracic outlet by tenotomy completed Maria M Travis [facility] 10/24/2020 16:42:01 Breast augmentation w/implt completed Maria M Travis [facility] 10/24/2020 16:42:16 Imaging Results Imaging Date Name Status LastModified by Organization Details LastModified Time 06/02/2022 imaging/diagnost ic result completed [facility] [address], [place], [address], 05/01/2023 18:48:09 06/02/2022 imaging/diagnost ic result completed [facility] [address], [place], [address], 05/01/2023 18:48:10 10/05/2022 US, transvaginal completed [email or web address] [facility] [address], [place], [address], 10/05/2022 17:17:26 10/05/2022 US, transvaginal completed [address] [address], [place], [address], 10/14/2022 13:56:38 09/16/2023 MAMMO, screening, bilateral completed [facility] [address], [place], [address], 10/16/2023 19:44:38 09/16/2023 MAMMO, screening, bilateral completed [facility] [address], [place], [address], 10/16/2023 19:45:13 Procedure Notes None recorded. Medical Equipment None Reported. Allergies No known drug allergies Medications Name Sig Start Date Stop Date Status Note LastModified by Organization Details LastModified Time carisopro dol 350 mg tablet TAKE 1 TABLET BY MOUTH EVERY 8 HOURS NEEDED FOR PAIN OR MUSCLE SPASM active Not Available Not Available No t Available cyclobenz aprine 10 mg tablet Take 1 tablet 3 times a day by oral route. 04/29 completed Not Available Not Available Not Available amoxicill in 500 mg capsule Take 1 capsule twice a day by oral route for 10 days. 06/12 completed Not Available Not Available Not Available metformin 500 mg tablet Take 2 tablet(s ) every day by oral route at bedtime for 90 days. active Not Available Not Available No t Available trazodone 50 mg tablet TAKE 1 TABLET BY MOUTH AT BEDTIME NEEDED 10/07 completed Not Available Not Available Not Available Concerta 18 mg tablet,ex tended release TAKE 1 TABLET BY MOUTH EVERY DAY IN THE MORNING FOR 20 DAYS 06/02 completed Not Available Not Available Not Available nystatin 100,000 unit/gram topical ointment APPLY EXTERNAL LY TO THE AFFECTED AREA TWICE DAILY 04/06 completed Not Available Not Available Not Available diclofena c ER 100 mg tablet,ex tended release 24 hr TAKE 1 TABLET BY MOUTH EVERY DAY 04/06 completed Not Available Not Available Not Available ondansetr on HCl 4 mg tablet 10/07 completed Not Available Not Available Not Available dextroamp hetamine- amphetami ne 10 mg tablet TAKE 1 TABLET BY MOUTH DAILY IN THE MORNING active Not Available Not Available No t Available estradiol 0.05 mg/24 hr weekly transderm al patch active Not Available Not Available Not Available pimecroli mus 1 % topical cream APPLY A THIN LAYER TO THE AFFECTED AREA(S) BY TOPICAL ROUTE 2 TIMES PER DAY ; RUB IN GENTLY AND COMPLETE LY 04/06 completed Not Available Not Available Not Available Diflucan 150 mg tablet Take 1 tablet every day by oral route. 07/12 completed Not Available Not Available Not Available hydroxyzi ne HCl 50 mg tablet TAKE 1 TABLET BY MOUTH AT NIGHT NEEDED 09/23 completed Not Available Not Available Not Available tretinoin 0.05 % topical cream APPLY TO THE AFFECTED AREA(S) BY TOPICAL ROUTE ONCE DAILY AT BEDTIME active Not Available Not Available No t Available tramadol 50 mg tablet TAKE 1 TABLET BY MOUTH EVERY 6 HOURS NEEDED FOR PAIN active Not Available Not Available No t Available triamcino lone acetonide 0.1 % topical cream APPLY THIN LAYER TOPICALL Y TO THE AFFECTED AREA TWICE DAILY active Not Available Not Available No t Available ketorolac 30 mg/mL (1 mL) injection solution Inject by intramus cular route for 1 day. active Not Available Not Available No t Available levothyro xine 25 mcg tablet TAKE 1 TABLET BY MOUTH EVERY DAY IN THE MORNING 04/06 completed Not Available Not Available Not Available levothyro xine 75 mcg tablet TAKE 1 TABLET BY MOUTH EVERY MORNING BEFORE BREAKFAS T active Not Available Not Available No t Available nystatin- triamcino lone 100,000 unit/gram -0.1 % topical ointment APPLY TO THE AFFECTED AREA(S) BY TOPICAL ROUTE 2 TIMES PER DAY 07/12 completed Not Available Not Available Not Available Celebrex 200 mg capsule Take 1 capsule every day by oral route. 10/28 completed Not Available Not Available Not Available trypsin (bulk) powder 04/29 completed Prescrib ed Elsewher e: Yes Loca tion: Olivia mckinnon [facility] odify By: [email or web address] z Encoun ter DateTime : 07/27/19 19 02:30:00 PM Not Available Not Available Not Available levothyro xine 100 mcg tablet TAKE 1 TABLET BY MOUTH IN THE MORNING ON AN EMPTY STOMACH active Not Available Not Available No t Available oxycodone -acetamin ophen 5 mg-325 mg tablet TAKE 1 TABLET BY MOUTH EVERY 6 HOURS NEEDED FOR PAIN active Not Available Not Available No t Available levothyro xine 88 mcg tablet TAKE 1 TABLET BY MOUTH EVERY MORNING BEFORE BREAKFAS T active Not Available Not Available No t Available alprazola m 0.25 mg tablet TAKE 1 TABLET BY MOUTH DAILY NEEDED. 10/07 completed Not Available Not Available Not Available lorazepam 0.5 mg tablet TAKE 1 TABLET BY MOUTH EVERY 8 HOURS NEEDED active Not Available Not Available No t Available estradiol 1 mg tablet TAKE 1 TABLET BY MOUTH EVERY DAY active Not Available Not Available No t Available dextroamp hetamine- amphetami ne ER 20 mg 24hr capsule,e xtend release TAKE 1 CAPSULE BY MOUTH EVERY MORNING active Not Available Not Available No t Available Keflex 250 mg capsule Take 1 capsule every 12 hours by oral route. 04/29 completed Not Available Not Available Not Available levothyro xine 50 mcg tablet TAKE 1 TABLET BY MOUTH EVERY DAY 04/06 completed Not Available Not Available Not Available pantopraz ole 40 mg tablet,de layed release TAKE 1 TABLET BY MOUTH EVERY DAY 09/23 completed Not Available Not Available Not Available triamcino lone acetonide 0.1 % topical ointment APPLY TO THE AFFECTED AREA TOPICALL Y TWICE DAILY. 01/14 completed Not Available Not Available Not Available progester one micronize d 200 mg capsule TAKE 1 CAPSULE BY MOUTH EVERY DAY AT BEDTIME active Not Available Not Available No t Available sertralin e 25 mg tablet TAKE 1/2 TABLET BY MOUTH DAILY ALONG WITH 50 MG TABLET TO EQUAL 75 MG DAILY 04/06 completed Not Available Not Available Not Available Adderall XR 10 mg capsule,e xtended release TAKE 1 CAPSULE BY MOUTH EVERY MORNING NEEDED 10/07 completed Not Available Not Available Not Available estradiol 2 mg tablet TAKE 1 TABLET BY MOUTH EVERY DAY active Not Available Not Available No t Available monteluka st 10 mg tablet take 1 tablet daily as needed 2 hours prior to exercise 04/29 completed Prescrib ed Elsewher e: No Locat ion: Olivia mckinnon [facility] odify By: [email or web address] z Encoun ter DateTime : 06/01/19 03:32:41 PM Not Available Not Available Not Available hydroxyzi ne HCl 25 mg tablet active Not Available Not Available No t Available zolpidem 5 mg tablet 04/06 completed Not Available Not Available Not Available ergocalci ferol (vitamin D2) 1,250 mcg (50,000 unit) capsule TAKE 1 CAPSULE BY MOUTH WEEKLY active Not Available Not Available No t Available budesonid e DR - ER 3 mg capsule,d elayed,ex tended release 04/06 completed Not Available Not Available Not Available estradiol 0.01% (0.1 mg/gram) vaginal cream active Not Available Not Available Not Available albuterol sulfate HFA 90 mcg/actua tion aerosol inhaler inhale 2 puff by inhalati on route every 4 - 6 hours as needed 04/29 completed Prescrib ed Elsewher e: No Locat ion: Olivia mckinnon [facility] odify By: [email or web address] Encounte r DateTime : 06/12/19 08:45:25 AM Not Available Not Available Not Available ketorolac 60 mg/2 mL intramusc ular solution ADMINIST ER 1 ML IN THE MUSCLE EVERY 12 HOURS FOR 1 DAY 10/07 completed Not Available Not Available Not Available clobetaso l 0.05 % scalp solution APPLY TO THE AFFECTED SCALP AREA BY TOPICAL ROUTE 2 TIMES PER DAY IN THE MORNING AND EVENING 04/06 completed Not Available Not Available Not Available ondansetr on 4 mg disintegr ating tablet DISSOLVE 2 TABLETS ON THE TONGUE EVERY 8 HOURS FOR 15 DAYS NEEDED FOR NAUSEA active Not Available Not Available No t Available fluoxetin e 20 mg capsule TAKE 1 CAPSULE BY MOUTH DAILY DIRECTED 10/06 completed Not Available Not Available Not Available metformin ER 500 mg tablet,ex tended release 24 hr Take 2 tablets every day by oral route at bedtime. 2024 active Not Available Not Available Not Avai lable sertralin e 50 mg tablet TAKE 1 TABLET BY MOUTH EVERY DAY 04/21 completed Not Available Not Available Not Available Diflucan 200 mg tablet Take 1 tablet every day by oral route. 04/29 completed Not Available Not Available Not Available dextroamp hetamine- amphetami ne 5 mg tablet TAKE 1 TABLET BY MOUTH EVERY DAY AT 2 PM NEEDED 10/07 completed Not Available Not Available Not Available methylphe nidate ER 36 mg tablet,ex tended release 24 hr TAKE 1 TABLET BY MOUTH EVERY DAY IN THE MORNING active Not Available Not Available No t Available spironola ctone 50 mg tablet TAKE 1 TABLET BY MOUTH EVERY DAY 01/14 completed Not Available Not Available Not Available metoclopr amide 10 mg tablet TAKE 1 TABLET BY MOUTH ONCE ONLY FOR 1 DOSE. 10/07 completed Not Available Not Available Not Available progester one micronize d 100 mg capsule TAKE 1 CAPSULE BY MOUTH EVERY DAY AT BEDTIME active Not Available Not Available No t Available amoxicill in 875 mg-potass ium clavulana te 125 mg tablet Take 1 tablet every 12 hours by oral route for 10 days. 03/10 completed Not Available Not Available Not Available Cleocin T 1 % lotion apply by topical route 2 times every day a thin layer to the affected area(s) 04/29 completed Prescrib ed Elsewher e: No Locat ion: [facility]enarchie pratibha [facility] odify By: massimo thrasher DateTime : 04/18/19 08:32:08 AM Not Available Not Available Not Available amoxicill in 500 mg-potass ium clavulana te 125 mg tablet TAKE 1 TABLET BY MOUTH EVERY 12 HOURS FOR 10 DAYS 06/12 completed Not Available Not Available Not Available Concerta 27 mg tablet,ex tended release TAKE 1 TABLET BY MOUTH EVERY DAY IN THE MORNING 10/06 completed Not Available Not Available Not Available ciclopiro x 1 % shampoo APPLY 5 TO 10 ML TO WET HAIR TWICE WEEKLY WITH AT LEAST 3 DAYS BETWEEN EACH SHAMPOOI NG 04/06 completed Not Available Not Available Not Available Premarin 0.625 mg/gram vaginal cream insert (1G) by vaginal route every day cyclical ly, 3 weeks on and 1 week off 04/29 completed Prescrib ed Elsewher e: No [facility] odify By: delilah jesus DateTime : 04/26/19 09:24:41 AM Not Available Not Available Not Available rosuvasta tin 5 mg tablet active Not Available Not Available Not Available Wellbutri n XL 150 mg 24 hr tablet, extended release TAKE 1 TABLET BY MOUTH EVERY DAY 09/23 completed Prescrib ed Elsewher e: No [facility] odify By: massimo thrasher DateTime : 06/19/19 12:33:53 PM Not Available Not Available Not Available Wellbutri n XL 300 mg 24 hr tablet, extended release take one tablet by oral route daily 04/29 completed Not Available Not Available Not Available (28) 1.5 mg-30 mcg (21)/75 mg (7) tablet Take 1 tablet every day by oral route. 03/23 completed Not Available Not Available Not Available IGLESIA (28) 3 mg-0.02 mg tablet TAKE 1 TABLET BY MOUTH EVERY DAY 10/07 completed Not Available Not Available Not Available Vyvanse 30 mg capsule TAKE 1 CAPSULE BY MOUTH EVERY MORNING NEEDED 10/07 completed Not Available Not Available Not Available Vyvanse 50 mg capsule TAKE 1 CAPSULE BY MOUTH EVERY MORNING NEEDED 10/07 completed Not Available Not Available Not Available estradiol 1 mg/gram (0.1 %) transderm al gel packet Apply by transder mal route for 90 days. active Not Available Not Available No t Available estradiol 0.5 mg/0.5 gram (0.1 %) transderm al gel packet APPLY 1 PACKET TOPICALL Y TO THE AFFECTED AREA EVERY DAY 09/14 completed Not Available Not Available Not Available Vyvanse 60 mg capsule TAKE 1 CAPSULE BY MOUTH EVERY MORNING NEEDED 10/07 completed Not Available Not Available Not Available Gavilyte- C 240 gram-22.7 2 gram-6.72 gram-5.84 gram oral solution 10/07 completed Not Available Not Available Not Available ketorolac 30 mg/mL injection solution Inject 1 mL every 6 hours by intraven ous route. 06/12 completed Not Available Not Available Not Available tryptopha n 500 mg tablet 04/29 completed Prescrib ed Elsewher e: Yes Loca tion: [facility] odify By: [email or web address] z Encoun ter DateTime : 07/27/19 02:30:00 PM Not Available Not Available Not Available Deplin (algal oil) 15 mg-90.314 mg capsule Take 1 capsule by oral route for 30 days. 06/02 completed Not Available Not Available Not Available Fetzima 40 mg capsule,e xtended release TAKE 1 CAPSULE BY MOUTH EVERY DAY 04/21 completed Not Available Not Available Not Available Fetzima 120 mg capsule,e xtended release TAKE 1 CAPSULE BY MOUTH EVERY DAY 04/06 completed Not Available Not Available Not Available Trulicity 1.5 mg/0.5 mL subcutane ous pen injector 2023 active Not Available Not Available Not Avai lable Addyi 100 mg tablet TAKE 1 TABLET BY MOUTH DAILY 2024 active Not Available Not Available Not Avai lable Blisovi Fe 04/16 (28) 1 mg-20 mcg (21)/75 mg (7) tablet Take 1 tablet by mouth every day for continuo us cycling 10/07 completed Not Available Not Available Not Available Trintelli x 5 mg tablet TAKE 1 TABLET BY MOUTH EVERY DAY 04/06 completed Not Available Not Available Not Available Trintelli x 20 mg tablet TAKE 1 TABLET BY MOUTH EVERY DAY 04/06 completed Not Available Not Available Not Available Intrarosa 6.5 mg vaginal insert Insert 1 vaginal insert every day by vaginal route. 04/29 completed Not Available Not Available Not Available Ozempic 0.25 mg or 0.5 mg (2 mg/1.5 mL) subcutane ous pen injector active Not Available Not Available Not Available testoster one enanthate 50 mg/0.5 mL subcutane ous auto-inje ctor APPLY TWO CLICKS (5MG) TOPICALL Y TO EACH INNER THIGH ONCE DAILY DIRECTED NOT TO EXCEED 4 CLICKS EVERY 24 HOURS 2024 active Not Available Not Available Not Avai lable Bijuva 1 mg-100 mg capsule take 1 capsule by oral route every day in the evening 04/29 completed Prescrib ed Elsewher e: No Locat ion: Olivia mckinnon [facility] odify By: [email or web address] z Encoun ter DateTime : 05/22/19 11:02:17 AM Not Available Not Available Not Available Slynd 4 mg (28) tablet Take 1 tablet every day by oral route for 90 days. active Not Available Not Available No t Available Vyleesi 1.75 mg/0.3 mL subcutane ous auto-inje ctor active Not Available Not Available Not Available Rybelsus 14 mg tablet 2023 active Not Available Not Available Not Avai lable Rybelsus 7 mg tablet Take 1 tablet every day by oral route before meal(s) for 90 days, for DM2. 06/14 completed Not Available Not Available Not Available Rybelsus 3 mg tablet Take 1 tablet every day by oral route. 07/12 completed Not Available Not Available Not Available B Complex 1 (with folic acid) 0.4 mg tablet 04/06 completed Prescrib ed Elsewher e: Yes Loca tion: Olivia mckinnon [facility] odify By: [email or web address] z Encoun ter DateTime : 07/27/19 02:30:00 PM Not Available Not Available Not Available Mounjaro 7.5 mg/0.5 mL subcutane ous pen injector INJECT 1 SYRINGE SUBCUTAN EOUSLY ONCE A WEEK 10/06 completed Not Available Not Available Not Available Mounjaro 5 mg/0.5 mL subcutane ous pen injector INJECT 5MG SUBCUTAN EOUSLY ONCE WEEKLY FOR 4 WEEKS 03/10 completed Not Available Not Available Not Available Mounjaro 2.5 mg/0.5 mL subcutane ous pen injector Inject 2.5 mg every week by subcutan eous route. 04/06 completed Not Available Not Available Not Available Auvelity 45 mg-105 mg tablet, extended release TAKE 1 TABLET BY MOUTH TWICE DAILY active Not Available Not Available No t Available Vitals Date Recorded Body height Body mass index (BMI) Body weight Systolic blood pressure Diastolic blood pressure Provider Name and Address Organization Details Last Updated DateTime 10/24/2020 166.37 cm 22 kg/m2 04612.38 g 110 mm[Hg] 68 mm[Hg] Maria M Travis [facility] 14:22:23 Date Recorded Body weight Body mass index (BMI) Body height Provider Name and Address Organization Details Last Updated DateTime 01/14/2022 47074.86 g 25 kg/m2 165.1 cm NURIA [address], [place], [address], [facility] 01/14/2022 13:49:19 Date Recorded Body height Body mass index (BMI) Body weight Systolic blood pressure Diastolic blood pressure Provider Name and Address Organization Details Last Updated DateTime 01/28/2022 165.1 cm 24.5 kg/m2 60211.16 g 110 mm[Hg] 72 mm[Hg] Piedad Timmons [facility] 2 09:15:49 Social History Question Answer Notes LastModified by Organizat ion Details LastModified Time Tobacco Smoking Status Never Smoker Maria M Travis [facility], [facility] 10/24/2020 16:40:38 Do You Have An Advance Directive? Yes Information not available 04/06/2022 What Is Your Level Of Alcohol Consumption? Occasional [email or web address] Information not available 10/24/2020 If You Are , What Was Your Level Of Alcohol Consumption Prior To ? None [email or web address] Information not available 10/24/2020 Are You Blind Or Do You Have Difficulty Seeing? No [email or web address] Information not available 10/24/2020 What Is Your Level Of Caffeine Consumption? Occasional [email or web address] Information not available 10/24/2020 In The 14 Days Before Symptom Onset, Have You Had Close Contact With A Laboratory-confir med COVID-19 While That Case Was Ill? No [email or web address] Information not available 10/24/2020 In The 14 Days Before Symptom Onset, Have You Had Close Contact With A Person Who Is Under Investigation For COVID-19 While That Person Was Ill? No Information not available 10/24/2020 Have You Been To An Area Known To Be High Risk For COVID-19? No [email or web address] Information not available 10/24/2020 Are You Currently Employed? Yes Information not available 04/06/2022 Are You Deaf Or Do You Have Serious Difficulty Hearing? No [email or web address] Information not available 10/24/2020 What Type Of Diet Are You Following? DIABETIC Low Carb High Protein Information not available 04/06/2022 What Is The Highest Grade Or Level Of School You Have Completed Or The Highest Degree You Have Received? [id number] Information not available 04/06/2022 How Many Days Of Moderate To Strenuous Exercise, Like A Brisk Walk, Did You Do In The Last 7 Days? 6 Information not available 04/06/2022 On Those Days That You Engage In Moderate To Strenuous Exercise, How Many Minutes, On Average, Do You Exercise? 60 Information not available 04/06/2022 Have You Ever Been Counseled For Unhealthy Alcohol Use? No [email or web address] Information not available 10/24/2020 Do You Use Protection During Sex? No Information not available 04/06/2022 Do You Use Your Seat Belt Or Car Seat Routinely? Yes [email or web address] Information not available 10/24/2020 Are You Sexually Active? Yes Information not available 04/06/2022 Do You Have Smoke And Carbon Monoxide Detectors In Your Home? Yes Information not available 10/24/2020 Do You Feel Stressed (tense, Restless, Nervous, Or Anxious, Or Unable To Sleep At Night)? [id number] [email or web address] Information not available 10/24/2020 Do You Use Any Illicit Or Recreational Drugs? No [email or web address] Information not available 10/24/2020 Do You Use Sunscreen Routinely? Yes [email or web address] Information not available 10/24/2020 Has Tobacco Cessation Counseling Been Provided? No [email or web address] Information not available 10/24/2020 Do You Or Have You Ever Used Any Other Forms Of Tobacco Or Nicotine? No [email or web address] Information not available 10/24/2020 Sex: Unknown Functional Status Question Answer Note LastModified by Organizat ion Details LastModified Time Are you able to walk? YESWOREST [email or web address] Information not available 10/24/2020 Are you able to care for yourself? Yes Information not available 04/06/2022 What is your exercise level? Moderate 5-6d wk weights/HI TT/Cardio/ Yoga Information not available 04/06/2022 Mental Status None recorded. Family History Relationship Description Onset Age of this Age Resolved Age Notes LastModified by Organization Details LastModified Time Mother Anxiety disorder [email or web address] Not available 10/24 16:39:06 Mother Depressive disorder [email or web address] Not available 10/24 16:39:39 Mother Disorder of thyroid gland [email or web address] Not available 10/24 16:40:04 Father Anxiety disorder [email or web address] Not available 10/24 16:39:06 Father Depressive disorder [email or web address] Not available 10/24 16:39:40 Father Disorder of thyroid gland [email or web address] Not available 10/24 16:40:04 Father Diabetes mellitus [email or web address] Not available 05/2021 09:15:55 Brother Anxiety disorder [email or web address] Not available 10/24 16:39:06 Brother Depressive disorder [email or web address] Not available 10/24 16:39:40 Sister Anxiety disorder [email or web address] Not available 10/24 16:39:06 Sister Depressive disorder [email or web address] Not available 10/24 16:39:40 Sister Disorder of thyroid gland [email or web address] Not available 10/24 16:40:04 Paternal Grandfather Diabetes mellitus [email or web address] Not available 05/2021 09:15:55 Paternal Grandfather Heart disease [email or web address] Not available 05/2021 09:15:55 Paternal Grandfather Hypercholest erolemia [email or web address] Not available 05/2021 09:15:55 Paternal Grandmother Diabetes mellitus [email or web address] Not available 05/2021 09:15:56 Paternal Grandmother Hypercholest erolemia [email or web address] Not available 05/2021 09:15:56 Paternal Grandmother Heart disease [email or web address] Not available 05/2021 09:15:56 Notes:Brother: Depression, A nxiety Family history of Anxiety Father: Thyroid disease, Depression, Anxiety Mother: Anxiety, Depression, Thyroid disease Sister: Depression, Thyroid disease, Anxiety Medical History Condition Response Allergies (Food, seasonal, environmental ) Y Other N Drug/Latex Allergies/Reactions N Blood Transfusion N Breast Cancer N Dermatologic Disorders N Lung Disease N Defects or Inherited Disease N Breast Problem Y Gestational Diabetes Y Hematologic disorders N Anesthesia Complications N History of STI N Deep Vein Thrombosis N Polycystic ovary syndrome Y Anxiety Disorder Y Autoimmune disease N Arthritis N Polyps N Infertility N Acid Reflux (GERD) Y History of abnormal pap N Cancer N Varicosities N Stroke N Neurologic/Epilepsy N Endometriosis N High Cholesterol Y Fibromyalgia N Headaches Y Kidney Disease N Heart Problems N Thyroid Problems N Kidney or Bladder Problems N GI Problems N Eating Disorder N Anemia N Art (IVF or FET) N Psychiatric Illness Y Ovarian Cancer N Diabetes Y Pulmonary (TB, Asthma) N Hepatitis/Liver Disease N No Past Medical History N Eczema N Urinary Tract Infection N Abuse/Domestic Violence N Asthma N Trauma/Violence N Depression/ depression Y Heart Disease N Pre-Eclampsia N Hypertension N Osteoporosis N Thrombophilias N Gynecological History Statement/Question Response Date of Last Mammogram 09/04/2020 On BCP's at Conception? N N STIs/STDs N HPV Vaccine N Current Control Method Other Age at First Child 30 Sexually Active? Y Age of first menstrual cycle 11 Date of Last Pap Smear 10/24/2020 Sexual Problems? Y LMP Unknown 08/04/2020 N Obstetrics History GPAL:G 2 P 2 0 0 2 Type Value Full Term 2 Living 2 Total 2 Past Encounters Encounter ID Performer Location Encounter Start Date Encounter Closed Date Diagnosis/Indication Diagnosis SNOMED-CT Code Diagnosis ICD10 Code Diagnosis Note [id number] Rocio Pedraza CNM [place] [address],[facility] [place] [address] 10/24/2020 14:18:37 10/24/2020 14:56:33 Seborrheic dermatitis 89544513 L21.9 [id number] NURIA Hall [place] [address],[facility] [place] [address] 01/28/2022 09:12:24 01/28/2022 11:40:14 Prediabetes 656996492 R73.03 Doing well on low dose [email or web address] agreed to continue at same dose x 4 weeksRx sentR/B of medication discussed and accepted by patientRTC for med check in 4 weeks Time spent in visit is a total of 20 mins with at least 50% of visit consisting of counseling and review of plan of care. Impaired g lucose tolerance 2605204 R73.09 Polycystic ovary syndrome [id number] E28.2 [id number] [facility] [address] [address] 10/05/2022 16:47:00 10/05/2022 17:06:03 Pain in pelvis 02159469 R10.2 Health Concerns Section Related Observation LastModified by Organization Detai ls LastModified Time None Recorded Concern Status LastModified by Organization Details LastModified Time None Recorded Advance Directives Directive Y: Payers Encounter Date Sequence Insurance Name Policy Number Policy Doyle Covered Member ID Doyle Member ID Guarantor Name 10/24/[address] [place] [address] [id number] Nelida Laura [id number] Nelida Cuenca 01/28/2022 1 [facility] [id number] Nelida Laura [id number] Nelida Laura 10/05/2022 1 [facility] [id number] Nelida Laura [id number] Nelida Cuenca Notes Date Note Type Note Provider Name and Address Organization Details Recorded Time 10/24/2020 text/html Annual GYNReport ed bypatient.History: no gynecologic complaints Breast:No breast pain; No breast lump; No nipple discharge Sexual complaints:No sexual complaints; No pain during intercourse; Normal libido Menopausal Symptoms:No menopausal symptoms; Normal vaginal lubrication Psychological symptoms:No depression; No anxiety; No PMDD Preventive measures:Encourage self breast examination; Encourage regular exercise; Encourage no tobacco useNotes:mammogram complete, doing well, rf anxiety medication Rocio Pedraza CNM [address], [place], [address], [facility] 10/24/2020 14:30:47 01/28/2022 text/html Patient presents for ortega clay at [facility] for pre-diabetes, elevated hemoglobin A1C, PCOS, and inability to loose weight despite healthy eating and exercise.Feeling well!Symptoms of nocturia, nausea, and fatigue have all improvedShe has no negative SEShe exercises and is eating healthy NURIA Hall [address], [place], [address], [facility] 01/28/2022 14:03:59 OBGyn Episode Ob Episode Information Episode Created Date Number of Fetuses Patient Bloodtype Patient rh Status Prepregnancy Weight lbs Domestic Partner Domestic Partner Phone Father Name Direct Support Professional Home Health Status 10/25/19 21 1 CLOSED Fetus Data First Name Last Name Admitted to NICU Weight (g) Sex Living Outcome Pediatric Complications Fetus ID Race Codes Race Delivery Type 2579.57 [id number] M Full Term [id number] Primary Porfirio Calculation Initial Porfirio Date Initial Exam Date Initial Exam Provider Initial Ultrasound Date Last Menstrual Period Date Ultra Sound Weeks Gestation 0 Eighteen To Twenty Week Porfirio Update Ultra Sound Date Fundal Height At Umbil Quickening Date Ultra Sound Latest Weeks Gestation Final Porfirio Confirmed By Final Porfirio Confirmed Date Final Porfirio Date Ultra Sound Latest Days Gestation 0 0 Menstrual History Last Menstrual Date Menses Monthly On Bcp Conception Prior Menses Frequency Hcg Plus Date Menarche Onset Age Delivery Information Delivery Date Delivery Type Labor Anesthesia Weeks Gestation Incision Type Labor Labor Length Hrs Delivered By Post Complications Tubal Sterilization Discharge Date Comments 6 37 breech Discharge Information Feeding Method Contraceptive Method Maternal HG B and HCT Levels Ob Episode Information Episode Created Date Number of Fetuses Patient Bloodtype Patient rh Status Prepregnancy Weight lbs Domestic Partner Domestic Partner Phone Father Name Direct Support Professional Home Health Status 10/25/19 21 1 CLOSED Fetus Data First Name Last Name Admitted to NICU Weight (g) Sex Living Outcome Pediatric Complications Fetus ID Race Codes Race Delivery Type 2579.57 [id number] F Full Term [id number] V Back Porfirio Calculation Initial Porfirio Date Initial Exam Date Initial Exam Provider Initial Ultrasound Date Last Menstrual Period Date Ultra Sound Weeks Gestation 0 Eighteen To Twenty Week Porfirio Update Ultra Sound Date Fundal Height At Umbil Quickening Date Ultra Sound Latest Weeks Gestation Final Porfirio Confirmed By Final Porfirio Confirmed Date Final Porfirio Date Ultra Sound Latest Days Gestation 0 0 Menstrual History Last Menstrual Date Menses Monthly On Bcp Conception Prior Menses Frequency Hcg Plus Date Menarche Onset Age Delivery Information Delivery Date Delivery Type Labor Anesthesia Weeks Gestation Incision Type Labor Labor Length Hrs Delivered By Post Complications Tubal Sterilization Discharge Date Comments 8 39.6 Discharge Information Feeding Method Contraceptive Method Maternal HG B and HCT Levels
--- OUTSIDE RECORDS SUMMARY | 2024-07-25 09:06 | XMS_ITS | Data Portability ---
Author Organization [employer] [facility] in Office Address [address] [place] [address] Assessment Encounter Date Assessment Date Assessment LastModified by Organization Details LastModified Time 05/15/2024 05/15/2024 I spent 15 minutes of awyd-qq-ilxn counselling and care coordination time with the patient. This includes reviewing medical records (medical, surgical, family and social history); updating medication and allergy information in the electronic health record; and ordering labs, medications, and education materials to continue patient care. [email or web address] Not available 05/15/2024 09:54:42 06/04/2024 06/04/2024 I spent 15 minutes of rmwn-na-wcxy counselling and care coordination time with the patient. This includes reviewing medical records (medical, surgical, family and social history); updating medication and allergy information in the electronic health record; and ordering labs, medications, and education materials to continue patient care. [email or web address] Not available 06/04/2024 09:52:50 06/18/2024 06/18/2024 I spent 15 minutes of qloz-wn-ncqs counselling and care coordination time with the patient. This includes reviewing medical records (medical, surgical, family and social history); updating medication and allergy information in the electronic health record; and ordering labs, medications, and education materials to continue patient care. [email or web address] Not available 06/18/2024 09:50:16 07/02/2024 07/02/2024 I spent 27 minutes of sgda-nn-mbjm counselling and care coordination time with the patient. This includes reviewing medical records (medical, surgical, family and social history); updating medication and allergy information in the electronic health record; and ordering labs, medications, and education materials to continue patient care. [email or web address] Not available 07/02/2024 15:19:00 07/16/2024 07/16/2024 I spent 15 minutes of fehu-rx-iecj counselling and care coordination time with the patient. This includes reviewing medical records (medical, surgical, family and social history); updating medication and allergy information in the electronic health record; and ordering labs, medications, and education materials to continue patient care. [email or web address] Not available 07/16/2024 09:31:29 Plan of Treatment Reminders Order Date Submit Date Provider Last Modified By Organization Details Last Modified Time Details Appointments V3APPT:WT 2024 06:15A M Precious Glass NP Not available Not available Not available V3APPT:PP _DEA 2024 06:00A M KELLIE CUNNINGHAM NP Not available Not available Not available Lab testoster one, free + total, serum 2024 025 [facility], [address] [address], [place], [address], 07/09/2024 04:14:54 Referral None recorded. Procedures None recorded. Surgeries None recorded. Imaging None recorded. Medication Orders Bundle D Tirzepati de: 1mL (10mg)/we ek - [facility] 2024 025 [facility], [address], [place], [address], 07/16/2024 15:59:33 Testoster one Compound Top Click (20mg/gm) 2024 025 [id number] [facility], [address] [place] [address], [address], 07/16/2024 08:40:50 Prometriu m 200 mg capsule 2024 025 [id number], [address], [place], [place], [id number], 06/18/2024 09:52:38 Bundle D Tirzepati de: 1mL (10mg)/we ek - [facility] 2024 025 [email or web address] [facility] (Clinic Pay Unmonitored Fax), [address], [address], 07/16/2024 15:59:30 estradiol 1 mg tablet 2024 025 [facility][id number], [address], [place], [id number], 06/04/2024 10:00:10 Prometriu m 100 mg capsule 2024 025 [facility] #85129, [address], [place], [id number], 06/04/2024 09:59:50 Bundle C Tirzepati de: 0.75mL (7.5mg)/w minto - [facility] [address] [facility] [address] [facility] (Clinic Pay Unmonitored Fax), [address], [address], 07/16/2024 15:57:12 Bundle D: 1.5 mL/week - [facility] [address] [facility] (Clinic Pay Unmonitored Fax), [address], [address], 05/17/2024 11:14:54 ondansetr on 4 mg disintegr ating tablet 2024 025 [facility] #02508, [address], [place], [phone], 05/15/2024 09:55:25 Patient Targets Encounter Date Encounter Id Patient Goals Patient Target Last Modified By Organization Details Last Modified Time goal wgt 140lbs [email or web address] Not available 05/15/2024 09:51:23 goal weight 135-140lb, better sleep and mp sxs control [email or web address] Not available 06/04/2024 10:00:45 goal weight 135-140lb [email or web address] Not available 06/18/2024 09:48:38 goal weight 135-140lb [email or web address] Not available 07/16/2024 09:15:47 Patient Instructions Encounter Date Encounter Id Patient Instructions Last Modified By Organization Details Last Modified Time 05/15/2024 [id number] Any requested follow-up visits are listed below in the Plan of Care section. Go directly to the [facility] screen making supervisor at [email or web address] to book a time. Not available 05/15/2024 08:42:52 It was a pleasur e to meet with you today! We discussed your health concerns related to your weight management and the use of semaglutide. --------- Your Care Plan --------- Together, we decided that you would: - Continue with your current dosage of semaglutide 1.5. This medication is used to help manage your weight. - Start a new prescription for Zofran, which can help manage any potential nausea associated with semaglutide. This medication can be swallowed, chewed, or allowed to dissolve under your tongue for quick relief. - Remember to check out your refill of semaglutide at [employer] or using your kris. - Schedule your follow-up appointment for June 04. We will continue to monitor your progress and adjust your treatment plan as necessary. Tips for Taking Semaglutide Note: WEGOVY and OZEMPIC are brand names for SEMAGLUTIDE -You can take Semaglutide with or without food -If you need to change the day of the week, you may do so as long as your last dose of semaglutide was given 2 or more days before -If you take too much semaglutide, you may have severe nausea, severe vomiting, and severe low blood sugar. This is why it is critical to follow the dosing regimen prescribed by your [facility]. What to Do if You Miss a Dose -If you miss a dose, and the next scheduled dose is MORE than 2 days away (48 hours), take the missed dose as soon as possible -If you miss a dose, and the next scheduled dose is LESS than 2 days away (48 hours), do not administer the dose. Take your next dose on the regularly scheduled day -If you miss your semaglutide dose for more than 2 weeks, take the next dose on the regularly scheduled day or message your [facility] Expert to talk about how to restart your treatment The most common side effects may include: nausea, diarrhea, constipation, headache, abdominal pain, tiredness, upset stomach, dizziness, feeling bloated, belching, gas, stomach flu, heartburn. The most common side effect is nausea. It tends to go away on its own, but here are some tips to help you manage nausea associated with semaglutide: -Eat bland, low-fat foods, like crackers, toast, and rice -Eat foods that contain water, like soups and gelatin -Avoid lying down after you eat -Go outdoors for fresh air -Eat more slowly Important Safety Information Semaglutide/Wegovy/ Ozempic may cause serious side effects, including: -Inflammation of your pancreas (pancreatitis). Stop using this medication and call your [facility] healthcare provider right away if you have severe pain in your stomach area (abdomen) that will not go away, with or without vomiting. You may feel the pain from your abdomen to your back. -Gallbladder problems. May cause gallbladder problems, including gallstones. Some gallstones may need surgery. Seek urgent medical care if you have symptoms, such as pain in your upper stomach (abdomen), fever, yellowing of the skin or eyes (jaundice), or cyndie-colored stools. -Increased risk of low blood sugar (hypoglycemia) in patients with type 2 diabetes, especially those who also take medicines for type 2 diabetes such as sulfonylureas or insulin. This can be both a serious and common side effect. Talk to your [facility] healthcare provider about how to recognize and treat low blood sugar and check your blood sugar before you start and while you take this medication. Signs and symptoms of low blood sugar may include dizziness or light-headedness, blurred vision, anxiety, irritability or mood changes, sweating, slurred speech, hunger, confusion or drowsiness, shakiness, weakness, headache, fast heartbeat, or feeling jittery. -Kidney problems (kidney failure). In people who have kidney problems, diarrhea, nausea, and vomiting may cause a loss of fluids (dehydration) which may cause kidney problems to get worse. It is important for you to drink fluids to help reduce your chance of dehydration. -Serious allergic reactions. Stop using this medication and get medical help right away, if you have any symptoms of a serious allergic reaction, including swelling of your face, lips, tongue, or throat; problems breathing or swallowing; severe rash or itching; fainting or feeling dizzy; or very rapid heartbeat. -Change in vision in patients with type 2 diabetes. Tell your [facility] healthcare provider or seek immediate medical attention if you have changes in vision during treatment while on this medication. -Increased heart rate. This medication can increase your heart rate while you are at rest. Tell your [facility] healthcare provider if you feel your heart racing or pounding in your chest and it lasts for several minutes. -Depression or thoughts of suicide. You should pay attention to any mental changes, especially sudden changes in your mood, behaviors, thoughts, or feelings. Call your [facility] healthcare provider right away if you have any mental changes that are new, worse or worry you. If you EVER have any thoughts of self harm or thoughts of harming someone else, please go to the closest emergency department or call 911. You can also call / text [employer] [email or web address] x -: May cause harm. If you become , discontinue semaglutide. Discontinue semaglutide at least 2 months before a planned . While on semaglutide please use a control method to prevent if needed. Please carefully review the care plan we have decided upon, specific information regarding your medication, and important details about your treatment detailed below. Thank you for trusting us with your care! [email or web address] Not available 05/15/2024 09:57:53 06/04/2024 [id number] Any requested follow-up visits are listed below in the Plan of Care section. Go directly to the [facility] screen making supervisor at [email or web address] to book a time. Not available 06/04/2024 09:48:11 It was a pleasur e to meet with you today! We discussed your health concerns related to your current medications and made some adjustments to better suit your needs. --------- Your Care Plan --------- Together, we decided that you would: - Stop taking Slynd as your partner has had a vasectomy. - Continue taking levothyroxine at 88. - Continue taking ondansetron or Zofran as needed for nausea. - Continue taking Ativan or lorazepam 0.5 as needed. - Continue using the estradiol facial cream and vaginal estrogen cream. - Adjust your estradiol tablets from 2 milligrams to 1 milligram. This is a more appropriate dose for managing menopause symptoms. - Start taking Prometrium (or its equivalent, progesterone) at a dose of 100 milligrams. This should be taken at bedtime, about 30 minutes before you plan to go to sleep. - Continue using semaglutide. - Increase your dose of tirzepatide from 5 milligrams to 7.5 milligrams. This prescription will be sent to your [facility]. - Schedule a follow-up appointment in 3 months to assess how you're doing with these changes. However, we will need to meet back monthly for the tirzepatide, so we will schedule the 3-month follow-up at a later date. - Schedule a weight follow-up appointment for June 25 at 9:30 Central time. Today we reviewed options for treating common symptoms of menopause. These options include hormonal medications, non hormonal medications, integrative therapies and lifestyle modifications. Menopause symptoms vary from woman to woman. Some women get no symptoms, but others have many. Intensity and duration also vary and can last on average 5-10 years. HRT may help with many menopausal symptoms. It is FDA approved for the treatment of hot flashes, vaginal symptoms, osteoporosis, and for those in early or premature menopause. HRT is associated with relief of symptoms and improvement in bone health. When started close to the age of menopause, HRT reduces cardiovascular risk and has potential benefits for cognitive health. Here are the latest recommendations from the Menopause Society: https://menopause.o rg/patient-educatio n/menopause-topics/ hormone-therapy Hormone therapy most often involves the combination of estrogen and progestogen. As with any drug there are some potential risks associated with hormone therapy. There are concerns of associated health risks with HRT including risks related to breast cancer, uterine cancer, gallbladder disease, and dementia. Many of these concerns are related to older types of hormones that are no longer recommended today and some of these concerns differ depending on the component of hormones (i.e., estrogen vs progestogen) and the mode of delivery. Some studies have suggested that some types of HRT may increase the risk of heart attack, stroke, and blood clots. If you develop chest pain, difficulty breathing, or symptoms suggestive of a stroke please seek care immediately. Today we reviewed your personal history including specific risks and benefits of hormone therapy for you. Based on this shared decision making, we recommend HRT to you as a reasonable and helpful therapy. If you have additional questions related to health risks associated with HRT, please discuss with your clinician. Please know that HRT requires fine-tuning and an individualized approach. We ll plan to adjust your therapy if needed to address your symptoms. We will meet in 4-6 weeks to check in about your new regimen. Please reach out if you need to meet sooner. Tips for Taking Tirzepatide Note: MOUNJARO and ZEPBOUND are brand names for TIRZEPATIDE -You can take Tirzepatide(Mounjar o/Zepbound) with or without food -If you need to change the day of the week, you may do so as long as your last dose was given 2 or more days before -If you take too much tirzepatide, you may have severe nausea, severe vomiting, and severe low blood sugar. This is why it is critical to follow the dosing regimen prescribed by your [facility]. What to Do if You Miss a Dose -If you miss a dose, and the next scheduled dose is MORE than 2 days away (48 hours), take the missed dose as soon as possible -If you miss a dose, and the next scheduled dose is LESS than 2 days away (48 hours), do not administer the dose. Take your next dose on the regularly scheduled day -If you miss your tirzepatide dose for more than 2 weeks, take the next dose on the regularly scheduled day or message your [facility] Expert to talk about how to restart your treatment The most common side effects may include: nausea, diarrhea, constipation, headache, abdominal pain, tiredness, upset stomach, dizziness, feeling bloated, belching, gas, stomach flu, heartburn. The most common side effect is nausea. It tends to go away on its own, but here are some tips to help you manage nausea associated with this medication: -Eat bland, low-fat foods, like crackers, toast, and rice -Eat foods that contain water, like soups and gelatin -Avoid lying down after you eat -Go outdoors for fresh air -Eat more slowly Important Safety Information Tirzepatide/Mounjar o/Zepbound may cause serious side effects, including: -Inflammation of your pancreas (pancreatitis). Stop using this medication and call your [facility] healthcare provider right away if you have severe pain in your stomach area (abdomen) that will not go away, with or without vomiting. You may feel the pain from your abdomen to your back. -Gallbladder problems. May cause gallbladder problems, including gallstones. Some gallstones may need surgery. Call your [facility] provider if you have symptoms, such as pain in your upper stomach (abdomen), fever, yellowing of the skin or eyes (jaundice), or cyndie-colored stools. -Increased risk of low blood sugar (hypoglycemia) in patients with type 2 diabetes, especially those who also take medicines for type 2 diabetes such as sulfonylureas or insulin. This can be both a serious and common side effect. Talk to your [facility] healthcare provider about how to recognize and treat low blood sugar and check your blood sugar before you start and while you take this medication. Signs and symptoms of low blood sugar may include dizziness or light-headedness, blurred vision, anxiety, irritability or mood changes, sweating, slurred speech, hunger, confusion or drowsiness, shakiness, weakness, headache, fast heartbeat, or feeling jittery. -Kidney problems (kidney failure). In people who have kidney problems, diarrhea, nausea, and vomiting may cause a loss of fluids (dehydration) which may cause kidney problems to get worse. It is important for you to drink fluids to help reduce your chance of dehydration. -Serious allergic reactions. Stop using this medication and get medical help right away, if you have any symptoms of a serious allergic reaction, including swelling of your face, lips, tongue, or throat; problems breathing or swallowing; severe rash or itching; fainting or feeling dizzy; or very rapid heartbeat. -Change in vision in patients with type 2 diabetes. Tell your [facility] healthcare provider if you have changes in vision during treatment while on this medication. -Increased heart rate. This medication can increase your heart rate while you are at rest. Tell your [facility] healthcare provider if you feel your heart racing or pounding in your chest and it lasts for several minutes. -Depression or thoughts of suicide. You should pay attention to any mental changes, especially sudden changes in your mood, behaviors, thoughts, or feelings. Call your [facility] healthcare provider right away if you have any mental changes that are new, worse or worry you. If you EVER have any thoughts of self harm or thoughts of harming someone else, please go to the closest emergency department or call 911. You can also call / text [phone] [email or web address] Please carefully review the care plan we have decided upon, specific information regarding your medication, and important details about your treatment detailed below. Thank you for trusting us with your care! NPBates [email or web address] Not available 06/04/2024 10:01:05 06/18/2024 [id number] Any requested follow-up visits are listed below in the Plan of Care section. Go directly to the [facility] screen making supervisor at [email or web address] to book a time. [email or web address] Not available 06/18/2024 09:47:43 It was a pleasur e to meet with you today! We discussed your health concerns related to weight management and sleep issues. --------- Your Care Plan --------- Together, we decided that you would: - Continue taking Mounjaro (tirzepatide) at your current dose of 7.5 mg. - Plan to increase the Mounjaro dosage to 10 mg at your next visit. - Use your kris to check and order the medication, then pick it up at your local pharmacy. - Start taking estradiol 2 mg, an increase from your previous dose of 1 mg, to help with sleep issues. - Update your clinician if your thyroid check results are abnormal, as this could affect your sleep. - Scheduled a follow-up appointment on July 16 at 8:30 am your time. Tips for Taking Tirzepatide Note: MOUNJARO and ZEPBOUND are brand names for TIRZEPATIDE -You can take Tirzepatide(Mounjar o/Zepbound) with or without food -If you need to change the day of the week, you may do so as long as your last dose was given 2 or more days before -If you take too much tirzepatide, you may have severe nausea, severe vomiting, and severe low blood sugar. This is why it is critical to follow the dosing regimen prescribed by your [facility] Expert. What to Do if You Miss a Dose -If you miss a dose, and the next scheduled dose is MORE than 2 days away (48 hours), take the missed dose as soon as possible -If you miss a dose, and the next scheduled dose is LESS than 2 days away (48 hours), do not administer the dose. Take your next dose on the regularly scheduled day -If you miss your tirzepatide dose for more than 2 weeks, take the next dose on the regularly scheduled day or message your [facility] Expert to talk about how to restart your treatment The most common side effects may include: nausea, diarrhea, constipation, headache, abdominal pain, tiredness, upset stomach, dizziness, feeling bloated, belching, gas, stomach flu, heartburn. The most common side effect is nausea. It tends to go away on its own, but here are some tips to help you manage nausea associated with this medication: -Eat bland, low-fat foods, like crackers, toast, and rice -Eat foods that contain water, like soups and gelatin -Avoid lying down after you eat -Go outdoors for fresh air -Eat more slowly Important Safety Information Tirzepatide/Mounjar o/Zepbound may cause serious side effects, including: -Inflammation of your pancreas (pancreatitis). Stop using this medication and call your [facility] healthcare provider right away if you have severe pain in your stomach area (abdomen) that will not go away, with or without vomiting. You may feel the pain from your abdomen to your back. -Gallbladder problems. May cause gallbladder problems, including gallstones. Some gallstones may need surgery. Call your [facility] healthcare provider if you have symptoms, such as pain in your upper stomach (abdomen), fever, yellowing of the skin or eyes (jaundice), or cyndie-colored stools. -Increased risk of low blood sugar (hypoglycemia) in patients with type 2 diabetes, especially those who also take medicines for type 2 diabetes such as sulfonylureas or insulin. This can be both a serious and common side effect. Talk to your [facility] healthcare provider about how to recognize and treat low blood sugar and check your blood sugar before you start and while you take this medication. Signs and symptoms of low blood sugar may include dizziness or light-headedness, blurred vision, anxiety, irritability or mood changes, sweating, slurred speech, hunger, confusion or drowsiness, shakiness, weakness, headache, fast heartbeat, or feeling jittery. -Kidney problems (kidney failure). In people who have kidney problems, diarrhea, nausea, and vomiting may cause a loss of fluids (dehydration) which may cause kidney problems to get worse. It is important for you to drink fluids to help reduce your chance of dehydration. -Serious allergic reactions. Stop using this medication and get medical help right away, if you have any symptoms of a serious allergic reaction, including swelling of your face, lips, tongue, or throat; problems breathing or swallowing; severe rash or itching; fainting or feeling dizzy; or very rapid heartbeat. -Change in vision in patients with type 2 diabetes. Tell your [facility] healthcare provider if you have changes in vision during treatment while on this medication. -Increased heart rate. This medication can increase your heart rate while you are at rest. Tell your [facility] provider if you feel your heart racing or pounding in your chest and it lasts for several minutes. -Depression or thoughts of suicide. You should pay attention to any mental changes, especially sudden changes in your mood, behaviors, thoughts, or feelings. Call your [facility] provider right away if you have any mental changes that are new, worse or worry you. If you EVER have any thoughts of self harm or thoughts of harming someone else, please go to the closest emergency department or call 911. You can also call / text [phone] [email or web address] &[email or web address]_[email or web address] Please carefully review the care plan we have decided upon, specific information regarding your medication, and important details about your treatment detailed below. Today we reviewed options for treating common symptoms of menopause. These options include hormonal medications, non hormonal medications, integrative therapies and lifestyle modifications. Menopause symptoms vary from woman to woman. Some women get no symptoms, but others have many. Intensity and duration also vary and can last on average 5-10 years. HRT may help with many menopausal symptoms. It is FDA approved for the treatment of hot flashes, vaginal symptoms, osteoporosis, and for those in early or premature menopause. HRT is associated with relief of symptoms and improvement in bone health. When started close to the age of menopause, HRT reduces cardiovascular risk and has potential benefits for cognitive health. Here are the latest recommendations from the Menopause Society: https://menopause.o rg/patient-educatio n/menopause-topics/ hormone-therapy Hormone therapy most often involves the combination of estrogen and progestogen. As with any drug there are some potential risks associated with hormone therapy. There are concerns of associated health risks with HRT including risks related to breast cancer, uterine cancer, gallbladder disease, and dementia. Many of these concerns are related to older types of hormones that are no longer recommended today and some of these concerns differ depending on the component of hormones (i.e., estrogen vs progestogen) and the mode of delivery. Some studies have suggested that some types of HRT may increase the risk of heart attack, stroke, and blood clots. If you develop chest pain, difficulty breathing, or symptoms suggestive of a stroke please seek care immediately. Today we reviewed your personal history including specific risks and benefits of hormone therapy for you. Based on this shared decision making, we recommend HRT to you as a reasonable and helpful therapy. If you have additional questions related to health risks associated with HRT, please discuss with your clinician. Please know that HRT requires fine-tuning and an individualized approach. We ll plan to adjust your therapy if needed to address your symptoms. We will meet in 4-6 weeks to check in about your new regimen. Please reach out if you need to meet sooner. Thank you for trusting us with your care! NPBates [email or web address] Not available 06/18/2024 10:02:22 07/02/2024 [id number] Any requested follow-up visits are listed below in the Plan of Care section. Go directly to the [facility] screen making supervisor at [email or web address] to book a time. [email or web address] Not available 07/02/2024 13:36:19 It was a pleasur e to meet with you today! We discussed your health concerns related to your current testosterone therapy and its effects on your libido and genital arousal. --------- Your Care Plan --------- Together, we decided that you would: - Start using a new concentration of topical testosterone, 20 milligrams/gram, which will require only 1click per application. This change is intended to maintain your current dosage of 5 milligrams while reducing the number of clicks needed for each application. - Continue obtaining your testosterone from [facility]. They will contact you via text or phone to set up an account, after which you can purchase the medication and receive shipping and tracking information. - Undergo follow-up lab tests for total and free testosterone levels in 6 to 8 weeks to ensure your levels remain stable with the new concentration. These tests will be ordered through [facility]. - Schedule a follow-up appointment every 90 days to monitor your progress and order any necessary refills. Your next appointment is scheduled for September 24, at 8:00 AM. Please carefully review the care plan we have decided upon, specific information regarding your medication, and important details about your treatment detailed below. Thank you for trusting us with your care! -Testosterone is not FDA approved for use in women, but is commonly used to treat low libido in women. Treatment with testosterone in women has been associated with a modest improvement in sexual desire and satisfaction. - There is little terminal computer operator data on the safety of testosterone in women. Testosterone is not FDA approved for use in women. - You will be started on a low dose and we will increase your dose in order to give you the best overall benefit, without increasing your overall risk of side effects. -Common side effects that have been reported include, but are not limited to acne, mood changes, excessive hair growth, and weight gain. The doses that are prescribed for women typically will not cause male hormone side effects. Rarely high doses could lead to hair loss, deepening of the voice or enlargement of the clitoris and these changes may not be reversible. -In order to monitor your response to the use of testosterone, we will check your level before starting therapy and we will also monitor your testosterone blood levels frequently. - Please contact your [facility] clinician with any concerns. If you start to experience any alarming symptoms like chest pain or trouble breathing please go to the nearest emergency room for care. Not available 07/02/2024 16:11:59 07/16/2024 [id number] Any requested follow-up visits are listed below in the Plan of Care section. Go directly to the [facility] screen making supervisor at [email or web address] to book a time. [email or web address] Not available 07/16/2024 09:13:55 It was a pleasur e to meet with you today! We discussed your progress towards your weight goal and your current medication regimen. Your Care Plan Together, we decided that you would: - Continue taking tirzepatide at 10 mg. - Monitor your weight and aim to reach your goal of 135-140 lbs. - Refill your tirzepatide prescription. If you encounter any issues with availability, please let us know so we can send it to a different compounding pharmacy. - Schedule a follow-up appointment for August 13 at 9:15 AM Central Time. Please carefully review the care plan we have decided upon above, including specific information about your medication, and any other important details about your overall care. Thank you for trusting us with your care! NPBates [email or web address] Not available 07/16/2024 09:44:51 Reason for Referral None Reported. Results Created Date Observation Date Name Description Value Unit Range Abnormal Flag Note LastModifiedBy Organization Detail LastModifiedTime 07/03/1907/06/2024 SEX HORMO NE ETELVINA NG GLOBU DON sex hormone binding globulin 206 nmol/ L 17-124 high Not Available [facility] [address] [facility] [place], [address], 07/06/2024 10:23:20 07/03/1920 0707/06/2024 TESTO STERO NE, FREE, CALCU LATIO N testosterone , free 1.2 pg/mL 0.2-5. 0 [facility] med fusio n [address] [facility] [address] [facility] [place] [address] [phone] Keith Stuart MD, PhD Not Available [facility] [address] [place], [address], 07/06/2024 10:23:23 07/03/19 25 07/06/2024 TESTO STERO NE, TOTAL , MS testosterone , total, MS 55 NG/dL 2-45 high For addit ional infor eber silva e refer to https ://ed ucati on.RedShelf. Crowd[employer]at/f aq/To Marleni aleman LCMSM S (This link is being provi ded for infor nissa nal/e ducat ional purpo ses only. ) (Note ) This test was devel oped and its yashira tical perfo rmanc e jenelle cteri stics have been deter mined by play[employer]. It has not been clear ed or appro carol by the FDA. This assay has been valid ated pursu ant to the CLIA regul ation s and is used for clini vic purpo ses. [facility] med fusio n [address] [facility] [address] [facility] [address] [phone] Keith Stuart MD, PhD Not Available [facility] [address] [place], [address], 07/06/2024 10:23:24 Result Notes None recorded. Problems Name Problem SNOMED Code Status Onset Date Resolution Date Notes Provider Name and Address Organization Details Recorded Time Obesity 241036423 Active 2024 [place] [address] [place], [address], [facility] 5 09:37:21 Loss of hair 800008228 Active 2024 [place] [address] [place], [address], [facility] 5 12:00:00 Anxiety 03894221 Active 2023 [place] [address] [place], [address], [facility] 4 16:58:12 Attentio n deficit hyperact ivity disorder 366668388 Active 2023 [place] [address] [place], [address], [facility] 4 16:58:17 History of depressi on 091478679 Active 2023 [place] [address] [place], [address], [facility] 4 16:58:23 Diabetes mellitus 20251477 Active 2023 type 2 diabetes 2023 [place] [address] [place], [address], [facility] 4 09:05:29 Hypercho lesterol emia 07421243 Active 2023 [place] [address] [place], [address], [facility] 4 16:58:41 Polycyst ic ovary syndrome 339967298 Active 2023 [place] [address] [place], [address], [facility] 4 16:58:46 Hypothyr oidism 98665733 Active 2023 [place] [address] [place], [address], [facility] 4 16:58:53 Deep venous thrombos is 954615848 Completed 202306/04/2024 2018- due to vascular thoracic outlet syndrome to right subclavi an vein. On xarelto x [address] [place] [address] [place], [address], [facility] 5 09:58:46 Vascular thoracic outlet syndrome 490806348 Completed 202306/04/2024 2018- surgical ly repaired in 2018 [place] [address] [address] [place] [address], [facility] 5 09:59:18 Endometr ial ablation Active 2023 [place] [address] [place], [address], [facility] 4 09:05:37 Menopaus al symptom 37545409 Active 2023 [place] [address] [address] [place] [address], [facility] 4 17:01:38 Reduced libido 4792747 Active 2023 [place] [address] [address] [place] [address], [facility] 4 09:12:19 Genitour inary syndrome of menopaus e 38647658924 163074 Active 2023 [place] [address] [address] [place] [address], [facility] 4 09:14:13 Changes in skin texture 150628854 Active 2023 [place] [address] [address] [place] [address], [facility] 4 09:19:48 Abnormal weight gain 656222995 [place] 2023 [place] [address] [facility] [address], [facility] 4 12:59:40 Impaired cognitio n 657076128 Active 202312/14/19 24: Neurotra ck screener negative [place], [place], [facility] 4 09:38:08 Pregnanc y 21106284 Active 2024 [place], [place], [facility] 5 11:14:57 Partner had vasectom y 708228347 Active 2024 ESMER Yang [place], 2, [facility] 5 09:49:14 Perimeno pausal disorder 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 Procedures Surgical History Date Name Laterality Status Provider Name and Address Organization Details Recorded Time 4 Date of Last Mammogram completed [place], , [facility] 10/17/2023 08:58:26 1 Date of Last Pap Smear completed [facility]ENCI[facility] , [facility] 10/17/2023 09:09:01 0 Date of Last Colonoscopy completed ESMER VALENCIA [facility] , [facility] 10/17/2023 08:58:26 Caesarean Section completed ESMER AVILA [place], , [facility] 07/02/2024 14:57:04 Imaging Results None recorded. Procedure Notes None recorded. Medical Equipment None Reported. Allergies Allergen ID Allergen Name Allergen Category Reaction Reaction Severity Criticality Documentation Date Start Date Code Code System Note Provider Name and Address Organization Details Recorded Time 279884 aluminum aspirin Not available swelling Not available Not available 02/17/20242018 611 RxNorm Not Available Not Available Not Available 503694 wheat dextrin food,medi cation Not available Not available Not available 02/17/20242018 01979 6 RxNorm unrec ogniz ed react ion (text : GI Upset , code: 35283 5008) (from exter nal sourc e) Not Available Not Available Not Available 390402 aspirin medicatio n swelling Not available low 02/22/20242018 1191 RxNorm Not Available Not Available Not Available 757764 wheat bran extract food,medi cation Not available Not available low 02/22/20242018 80798 46 RxNorm unrec ogniz ed react ion (text : Nause a and Vomit ing, code: 75259 000) (from exter nal sourc e) Not Available Not Available Not Available Medications Name Sig Start Date Stop Date Status Note LastModified by Organization Details LastModified Time Bundle D Tirzepati de: 1mL (10mg)/we ek - [facility] Inject 100 units (10mg/1m l) subcutan eously once weekly. 07/16 completed Weeks 13-16 Not Available Not Available Not Available Bundle B Tirzepati de: 0.5mL (5mg)/wee k - [facility] Inject 50 units (5mg/0.5 ml) subcutan eously once weekly. 06/18 completed Weeks 5-8 Not Available Not Available Not Available Bundle B: 0.5 mL/week - [facility] Inject 0.5mg SQ once weekly x 4 weeks 03/22 completed Not Available Not Available Not Available Estriol+ Face Cream ([facility]) Apply 1 gram (equival ent to 1 pump) directly to face and neck twice daily. 2023 active Not Available Not Available Not Avai lable Testoster one Compound Top Click (20mg/gm) Apply 5mg/0.25 gm (1 click) per day to inner thigh. Wash hands after use. 2024 active Updated and correcte d RX sent Not Available Not Available Not Available Bundle C: 1.0 mL/week - [facility] active Not Available Not Available Not Available Bundle D Tirzepati de: 1mL (10mg)/we ek - [facility] Inject 100 units (10mg/1m l) subcutan eously once weekly. 2024 active Not Available Not Available Not Avai lable Testoster one Compound Top Click (20mg/gm) Apply 5mg/0.25 gm (1 click) per day to inner thigh. Wash hands after use. 2024 active Updated and correcte d RX sent Not Available Not Available Not Available Arousal Cream ([facility]) Apply 1 mL to clitoris or labia 15-30 minutes prior to sexual activity PRN daily. 2023 active Not Available Not Available Not Avai lable Bundle D: 1.5 mL/week - [facility] Inject 150 units (1.5mg) subcutan eously once weekly. 05/17 completed Not Available Not Available Not Available Hair Regrowth Serum ([facility]) Use the dropper to apply the solution to a clean, dry scalp once daily 2024 active Not Available Not Available Not Avai lable Bundle D: 1.5 mL/week - [facility] Inject 150 units (1.5mg) subcutan eously once weekly. 2024 active Not Available Not Available Not Avai lable Estriol+ Face Cream ([facility]) Apply 1 gram (equival ent to 1 pump) directly to face and neck twice daily. 2023 active Not Available Not Available Not Avai lable Bundle C Tirzepati de: 0.75mL (7.5mg)/w minto - [facility] Inject 75 units (7.5mg/0 .75ml) subcutan eously once weekly. 07/16 completed Weeks 9-12 Not Available Not Available Not Available Bundle C: 1.0 mL/week - [facility] Inject 100 units (1.0mg) subcutan eously once weekly. 2023 active Not Available Not Available Not Avai lable Bundle C: 1.0 mL/week - [facility] active Not Available Not Available Not Available Testoster one Compound Top Click (20mg/gm) active Not Available Not Available No t Available Bundle C: 1.0 mL/week - [facility] Inject 100 units (1.0mg) subcutan eously once weekly. 04/23 completed Not Available Not Available Not Available [facility] k Cognitive Screener online screener sent to patient 02/26 completed Not Available Not Available Not Available carisopro dol 350 mg tablet TAKE 1 TABLET BY MOUTH EVERY 8 HOURS NEEDED FOR PAIN OR MUSCLE SPASM 02/26 completed Not Available Not Available Not Available amoxicill in 500 mg capsule TAKE 1 CAPSULE BY MOUTH EVERY 8 HOURS UNTIL ALL TAKEN 02/26 completed Not Available Not Available Not Available metformin 500 mg tablet TAKE 4 TABLETS BY MOUTH EVERY DAY AT BEDTIME 02/26 completed Not Available Not Available Not Available Adderall 20 mg tablet Take 1 tablet every day by oral route. 04/23 completed Adderall 20mg XR Not Available Not Available Not Available dextroamp hetamine- amphetami ne 10 mg tablet TAKE 1 TABLET BY MOUTH DAILY IN THE MORNING active Not Available Not Available No t Available estradiol 0.05 mg/24 hr weekly transderm al patch APPLY 1 PATCH TOPICALL Y TO THE SKIN EVERY WEEK 02/26 completed adhesive patch allergy Not Available Not Available Not Available tretinoin 0.05 % topical cream APPLY TOPICALL Y TO THE AFFECTED AREA EVERY DAY AT BEDTIME 02/26 completed Not Available Not Available Not Available tramadol 50 mg tablet TAKE 1 TABLET BY MOUTH EVERY 6 HOURS NEEDED FOR PAIN 02/26 completed Not Available Not Available Not Available triamcino lone acetonide 0.1 % topical cream APPLY THIN LAYER TOPICALL Y TO THE AFFECTED AREA TWICE DAILY 02/26 completed Not Available Not Available Not Available levothyro xine 75 mcg tablet TAKE 1 TABLET BY MOUTH EVERY MORNING BEFORE BREAKFAS T active Not Available Not Available No t Available nystatin- triamcino lone 100,000 unit/gram -0.1 % topical ointment APPLY TOPICALL Y TO THE AFFECTED AREA TWICE DAILY 02/26 completed Not Available Not Available Not Available levothyro xine 100 mcg tablet TAKE 1 TABLET BY MOUTH IN THE MORNING ON AN EMPTY STOMACH 02/26 completed Not Available Not Available Not Available oxycodone -acetamin ophen 5 mg-325 mg tablet TAKE 1 TABLET BY MOUTH EVERY 6 HOURS NEEDED FOR PAIN 02/26 completed Not Available Not Available Not Available levothyro xine 88 mcg tablet TAKE 1 TABLET BY MOUTH EVERY MORNING BEFORE BREAKFAS T active Not Available Not Available No t Available lorazepam 0.5 mg tablet TAKE 1 [...] Not Available Not Available No t Available progester one micronize d 200 mg capsule TAKE 1 CAPSULE BY MOUTH EVERY DAY AT BEDTIME active Not Available Not Available No t Available estradiol 2 mg tablet TAKE 1 TABLET BY MOUTH EVERY DAY active Not Available Not Available No t Available hydroxyzi ne HCl 25 mg tablet 02/26 completed Not Available Not Available Not Available ergocalci ferol (vitamin D2) 1,250 mcg (50,000 unit) capsule TAKE 1 CAPSULE BY MOUTH WEEKLY 04/23 completed Not Available Not Available Not Available ondansetr on 4 mg disintegr ating tablet DISSOLVE 2 TABLETS ON THE TONGUE EVERY 8 HOURS FOR 15 DAYS NEEDED FOR NAUSEA active Not Available Not Available No t Available metformin ER 500 mg tablet,ex tended release 24 hr 04/23 completed Not Available Not Available Not Available methylphe nidate ER 36 mg tablet,ex tended release 24 hr TAKE 1 TABLET BY MOUTH EVERY DAY IN THE MORNING 02/26 completed Not Available Not Available Not Available progester one micronize d 100 mg capsule TAKE 1 CAPSULE BY MOUTH EVERY DAY AT BEDTIME active Not Available Not Available No t Available amoxicill in 500 mg-potass ium clavulana te 125 mg tablet TAKE 1 TABLET BY MOUTH EVERY 12 HOURS FOR 10 DAYS 06/18 completed Not Available Not Available Not Available Estrace 0.01% (0.1 mg/gram) vaginal cream Apply to vulva and vagina 1 gm nightly for 2 weeks then reduce to two to three times per week thereaft er. 2023 active Not Available Not Available Not Avai lable rosuvasta tin 5 mg tablet 04/23 completed Not Available Not Available Not Available levothyro xine 88mcg 06/04 completed Not Available Not Available Not Available testoster one active Not Available Not Available Not Available dietary supplemen t 02/26 completed Not Available Not Available Not Available Divigel 1 mg/gram (0.1 %) transderm al gel packet 11/20 completed Not Available Not Available Not Available estradiol 0.5 mg/0.5 gram (0.1 %) transderm al gel packet APPLY 1 PACKET TOPICALL Y TO THE AFFECTED AREA EVERY DAY 02/26 completed Not Available Not Available Not Available Slynd 4 mg (28) tablet 04/23 completed from FLEET ADMINISTRATIVE ASSISTANT Not Available Not Available Not Available Vyleesi 1.75 mg/0.3 mL subcutane ous auto-inje ctor 02/26 completed Not Available Not Available Not Available Rybelsus 14 mg tablet 02/26 completed Not Available Not Available Not Available Rybelsus 7 mg tablet 02/26 completed Not Available Not Available Not Available Rybelsus 3 mg tablet TAKE 1 TABLET BY MOUTH EVERY DAY 02/26 completed Not Available Not Available Not Available Mounjaro 5 mg/0.5 mL subcutane ous pen injector INJECT 5MG SUBCUTAN EOUSLY ONCE WEEKLY FOR 4 WEEKS 02/26 completed Not Available Not Available Not Available Auvelity 45 mg-105 mg tablet, extended release TAKE 1 TABLET BY MOUTH TWICE DAILY active Not Available Not Available No t Available Vitals Date Recorded Body height Body mass index (BMI) Body weight Provider Name and Address Organization Details Last Updated DateTime 05/15/2024 165.1 cm 25 kg/m2 [address] [address] [place], [address], [place] - [facility] 05/15/2024 09:51:01 Date Recorded Body height Body mass index (BMI) Body weight Provider Name and Address Organization Details Last Updated DateTime 06/04/2024 165.1 cm 25 kg/m2 9[address].[place] [address] [place], [address], [facility] 06/04/2024 09:53:04 Date Recorded Body height Body mass index (BMI) Body weight Provider Name and Address Organization Details Last Updated DateTime 06/18/2024 165.1 cm 24.7 kg/m2 77279.[place] [address] [place], [address], [facility] 06/18/2024 09:48:08 Date Recorded Body height Body mass index (BMI) Body weight Provider Name and Address Organization Details Last Updated DateTime 07/16/2024 165.1 cm 24.3 kg/m2 265[address].2 [place] [address] [facility] , [facility] 07/16/2024 09:32:00 Social History None recorded. Functional Status None recorded. Mental Status None recorded. Family History Relationship Description Onset Age of this Age Resolved Age Notes LastModified by Organization Details LastModified Time Father Anxiety [email or web address] Not available 07/16/2024 08:40:49 Father Type 2 diabetes mellitus [email or web address] Not available 2024 08:40:49 Father Hypercholest erolemia [email or web address] Not available 2024 08:40:49 Mother History of depression [email or web address] Not available 07/16 08:40:49 Mother Anxiety [email or web address] Not available 07/16/2024 08:40:49 Mother Uric acid renal calculus [email or web address] Not available 2024 08:40:49 Maternal Grandmother Ischemic stroke [email or web address] Not available 10/16 09:10:35 Maternal Grandmother Type 2 diabetes mellitus [email or web address] Not available 2024 08:40:49 Maternal Grandmother Hypertensive disorder [email or web address] Not available 2024 08:40:49 Maternal Grandfather Type 2 diabetes mellitus [email or web address] Not available 2024 08:40:49 Maternal Grandfather Multiple myeloma [email or web address] Not available 2024 08:40:49 Medical History Condition Response Diabetes Y Anxiety Disorder Y Other N Depression/ depression Y High Cholesterol Y Deep Vein Thrombosis Y Polycystic ovary syndrome Y Thyroid Problems Y GI Problems Y Gynecological History Statement/Question Response Abnormal Pap N Date of Last Colonoscopy 2019 Date of Last Mammogram 09/09/2023 Date of LMP 03/28/2010 Menses Monthly N HPV Vaccine N Date of Last Pap Smear 08/28/2020 Current Control Method Partner vas ectomy Approximate Hormone Replacement Therapy Yes Obstetrics History GPAL:G 3 P 0 0 0 2 Type Value Living 2 Total 3 Past Encounters Encounter ID Performer Location Encounter Start Date Encounter Closed Date Diagnosis/Indication Diagnosis SNOMED-CT Code Diagnosis ICD10 Code Diagnosis Note [id number] IGOR GARCIA NP Main Office [address] [place] [address] 10/17/2023 08:05:08 10/18/2023 09:28:06 Menopausal symptom 44013851 N95.1 - Patient is experienci ng symptoms consistent with menopausal transition , including reduced libido and changes in skin texture.- Currently on hormone replacemen t therapy with Divigel and Slynd, which has been effective in managing symptoms.- No additional treatment needed at this time. Reduced libido 9094433 R 68.82 - Patient has tried Addyi and Vyleesi for reduced libido without success and is concerned about the potential side effects of testostero ne cream due to a history of PCOS.- Will initiate treatment with a compounded arousal cream containing sildenafil , theophylli ne, and L-arginine to be applied 15-30 minutes prior to intercours e.- Patient educated on the applicatio n process and potential effects of the cream. Genitourin soren syndrome of menopause [id number] 1494729 N95.8 - Patient is experienci ng painful ovulation and is not using Slynd for contracept ion.- Initiate treatment with topical vaginal estradiol cream (Estrace cream) to be applied daily for two weeks, then 2-3 times per week thereafter .- Patient educated on the applicatio n process and the expected timeline for symptom improvemen t. Changes in skin texture 869606560 R23.4 - Patient is interested in trying the Estriol face cream to address changes in skin texture associated with menopausal transition .- The cream contains hyaluronic acid and estriol and will be sent to a [email or web address] cation given [id number] Z71.9 - Provided education on the use and benefits of the arousal cream, Estrace cream, and Estriol face cream.- Discussed the importance of hormone replacemen t therapy in managing menopausal symptoms and the safety of using estrogen-c ontaining products given the patient's history of a blood clot related to an anatomical issue.- Follow-up appointmen t scheduled for November 20 at 8 a.m. to assess the effectiven ess of the treatments and address any additional concerns. [id number] IGOR GARCIA NP Main Office [address] [place] [address] 11/21/2023 08:04:55 11/22/2023 09:24:16 Menopausal symptom 04291959 N95.1 - Patient reports positive response to Estriol face cream, Arousal cream, and Estrace cream noting improvemen t in vulvar changes.- No adverse effects reported from the new patch; no skin irritation or detachment observed.- Patient is currently using a 90-day supply of the patch and face cream.- Continue current regimen- Monitor for any changes or adverse effects with the new patch.- Follow-up scheduled for January 29 at 8 AM to reassess symptoms and treatment efficacy. Health edu cation given [id number] Z71.9 - Educated patient on the benefits and safety of Estriol face cream and Arousal cream.- Discussed the importance of maintainin g a high-prote in diet and fiber intake to support muscle metabolism .- Encouraged continuati on of functional fitness workouts, emphasizin g the benefits of resistance and cardio exercises. - Advised patient to monitor for any changes in symptoms and to report any adverse effects or concerns.- Patient understand s and agrees with the treatment plan and educationa l advice provided. [id number] Precious Glass NP Main Office [address] [place] [address] 02/27/2024 16:33:51 02/28/2024 08:06:42 Menopausal symptom 27400866 N95.1 - Patient has been using estradiol 2 mg tablets prescribed by FLEET ADMINISTRATIVE ASSISTANT due to a rash likely caused by the adhesive in the estradiol 0.05 transderma l patch.- Patient prefers estradiol gel but is currently using tablets due to insurance coverage issues.- Educated patient on the risks of thromboemb olism associated with oral estrogen therapy, especially given her history of DVT.- Continue current estradiol 2 mg tablets until further notice.FLEET ADMINISTRATIVE ASSISTANT managed above stated Abnormal weight gain 161 210401 R63.5 - Patient is currently on semaglutid e 0.5 mg weekly injections for weight management .- Discussed the potential for insurance coverage changes in March and the possibilit y of switching back to Rybelsus if covered.- Ordered a 4-week supply of semaglutid e 1 mg to be sent to [facility].- Follow-up appointjorge t scheduled for March 22 to reassess weight management plan. [facility] Rx Compounded Semaglutid e [email or web address] Here are the next steps regarding your [facility] CustomRx prescripti on: The day after your visit you will receive an email from [employer] to purchase your medication s. We recommend adding this email to your contact list to prevent it from being filtered by spam/junk filters. If you have any questions about how to purchase your order, please use the [employer] email address. Please ensure you click the link in the email to confirm the products you'd like. Once you have verified you'd like to receive this product from that email and completed the purchase, you will receive a tracking number via Her[employer]schm[employer]e and your product is on its way to you! If you have any questions at any time, please reach out to us here at [facility], we are happy to help. Genitourin soren syndrome of menopause [id number] 0855424 N95.8 - Patient is using estradiol vaginal cream and estradiol face cream from [facility].- No new symptoms reported; continue current regimen. History of deep vein thrombosis 194340151 Z86.718 - History of DVT in 2018, surgically repaired.- Discussed the increased risk of thromboemb olism with oral estrogen therapy.- Continue monitoring for any signs of recurrence . Generalize d anxiety disorder 01938603 F41.1 - Patient is currently on Auvelity for anxiety management .- No new symptoms reported; continue current regimen. Attention deficit hyperactivity disorder, predominantly inattentive type 60323763 F90.0 - Patient is currently on Adderall 20 mg for ADHD management .- No new symptoms reported; continue current regimen. Type 2 kelly betes mellitus without complication 904980007 E11.9 - Patient is on metformin 500 mg extended-r elease daily.- Recently switched from Rybelsus to semaglutid e injections due to insurance coverage issues.- Continue current regimen and monitor blood glucose levels. Polycystic ovary syndrome 392547781 E28.2 - No new symptoms reported.- Continue current management plan. Hypothyroidism 32303970 E03.9 - Patient is on levothyrox ine 88 mcg daily.- No new symptoms reported; continue current regimen. Hyperlipidemia 17692891 E78.5 - Patient is on rosuvastat in 5 mg daily.- No new symptoms reported; continue current regimen. Long-term current use of postmenopausal hormone replacement therapy [id number] 86296 Z79.890 - Patient is on estradiol 2 mg tablets and estradiol vaginal cream and Slynd BCP (Progestin only)- Discussed risks and benefits of long-term hormone replacemen t therapy.- Continue current regimen and monitor for any adverse effects. [id number] Precious Glass NP Main Office [address] [place] [address] 03/22/2024 08:33:44 03/23/2024 07:52:20 Abnormal weight gain [id number] R63.5 [facility] Compounded Semaglutid e [email or web address] Here are the next steps regarding your [facility] CustomRx prescripti on: The day after your visit you will receive an email from [employer] to purchase your medication s. We recommend adding this email to your contact list to prevent it from being filtered by spam/junk filters. If you have any questions about how to purchase your order, please use the [employer] email address. Please ensure you click the link in the email to confirm the products you'd like. Once you have verified you'd like to receive this product from that email and completed the purchase, you will receive a tracking number via Herrenschm[employer]e and your product is on its way to you! If you have any questions at any time, please reach out to us here at [facility], we are happy to help. Overweight 785980672 E66 .3 - Patient has been on semaglutid e 1 mg weekly, initiated in October, with follow-up every month.- Current weight is 154 lbs, with a BMI of 25.6. Patient has lost 4 lbs since the last visit.- Patient's goal weight is approachin g, and they have successful ly lost weight over the holidays.- Continue semaglutid e 1 mg weekly, as the patient has shown positive response to the current dosage.- Refill for semaglutid e 1 mg weekly has been sent to the compounded pharmacy.- Next follow-up appointmen t scheduled for April 19 to monitor weight and adjust treatment if necessary. - Educated patient on the importance of maintainin g current lifestyle changes and adherence to medication regimen. [id number] Precious Glass NP Main Office [address] [place] [address] 04/23/2024 08:07:07 04/24/2024 04:06:47 Abnormal weight gain 915662557 R63.5 [facility] Rx Compounded Semaglutid e [email or web address] Here are the next steps regarding your [facility] CustomRx prescripti on: The day after your visit you will receive an email from [employer] to purchase your medication s. We recommend adding this email to your contact list to prevent it from being filtered by [employer] filters. If you have any questions about how to purchase your order, please use the [employer] email address. Please ensure you click the link in the email to confirm the products you'd like. Once you have verified you'd like to receive this product from that email and completed the purchase, you will receive a tracking number via [employer] and your product is on its way to you! If you have any questions at any time, please reach out to us here at [facility], we are happy to help. [id number] Precious Glass NP Main Office [address] [place] [address] 05/15/2024 09:05:37 05/18/2024 04:19:10 Abnormal weight gain 808976234 R63.5 mild nausea this month appreciate script for Maryjane, would like to keep at same dose in this regards Overweight 118919755 E66 .3 - Patient has lost 2.6 pounds since the end of last month, resulting in a BMI of 25, which is within the healthy range.- Continue current weight management plan with a goal weight in mind.- Patient is currently on semaglutid e 1.5 mg for weight management .- Refill of semaglutid e 1.5 mg has been sent to the pharmacy.- Follow-up scheduled for June 04 at 8:15 AM Central Time to monitor weight and adjust treatment as necessary. Patient en counter status [id number] Z79.899 - Patient is experienci ng nausea as a side effect of semaglutid e.- Prescribed Zofran (ondansetr on) orally disintegra ting tablets to manage nausea. Instructio ns provided on administra tion: can be swallowed, chewed, or allowed to dissolve under the tongue.- Patient educated on the use of [facility] or the associated kris for medication management .- Patient understand s and agrees with the treatment plan. [id number] Precious Glass NP Main Office [address] [place] [address] 06/04/2024 09:04:29 06/05/2024 04:12:24 Menopausal symptom 12593135 N95.1 - Patient has been using estradiol 2 mg tablets prescribed by FLEET ADMINISTRATIVE ASSISTANT due to a rash likely caused by the adhesive in the estradiol 0.05 transderma l patch.- Patient prefers estradiol gel but is currently using tablets due to insurance coverage issues.- Educated patient on the risks of thromboemb olism associated with oral estrogen therapy, especially given her history of DVT.- Continue current estradiol 2 mg tablets until further notice.FLEET ADMINISTRATIVE ASSISTANT managed above stated Abnormal weight gain 161 480291 R63.5 [facility] Compounded Tirzepatid e [email or web address] Here are the next steps regarding your [facility] prescripti on: The day after your visit you will receive an email from [email or web address] to purchase your medication s. We recommend adding this email to your contact list to prevent it from being filtered by [employer] filters. Please ensure you click the link in the email to confirm the products you would like. Once you have verified you would like to receive this product from that email and completed the purchase, your prescripti on will be processed. If you do not receive the email, you can purchase your CustomRX medication s in the [facility] screen making supervisor at [email or web address]. Once you login click on Custom RX in the left side panel, then select the items you wish to purchase. You will receive an email and text when your order ships. Please allow 5-7 business days from time of purchase to arrival of the medication . If you have any questions at any time, please reach out to us here at [facility], we are happy to help. Menopausal syndrome 1237 01218 N95.1 - Current medication regimen includes estradiol tablets at 2 mg, which is typically used for PCOS or ovulation induction. - Recommende d adjusting estradiol dosage to 1 mg for menopause management .- Initiated progestero ne (Prometriu m) 100 mg capsule to be taken at bedtime, approximat whitney 30 minutes before sleep.- Educated patient on the benefits of the adjusted hormone therapy regimen.- Follow-up scheduled in 3 months to assess the effectiven ess of the new hormone therapy regimen. Obesity 726188403 E66.9 - Patient currently using semaglutid e for weight management .- Increased tirzepatid e dosage from 5 mg to 7.5 mg.- Scheduled follow-up for weight management on Tuesday, June 25 at 9:30 AM Central time.- Discussed goal weight and ongoing weight management plan. Long-term current use of postmenopausal hormone replacement therapy [id number] 03018 Z79.890 - Patient currently on estradiol tablets and vaginal estrogen cream.- Adjusted estradiol tablets to 1 mg for menopause management .- Initiated progestero ne (Prometriu m) 100 mg capsule at bedtime.- Educated patient on the benefits and expected outcomes of the adjusted hormone therapy regimen.- Follow-up scheduled in 3 months to assess the effectiven ess of the new hormone therapy regimen. [id number] Precious Glass NP Main Office [address] [place] [address] 06/18/2024 09:05:28 06/19/2024 04:10:03 Abnormal weight gain 330979483 R63.5 - Weight measured at 148.6 lbs, decreased from 150.2 lbs; BMI lowered from 25.0 to 24.7.- See Overweigh t below for treatment/ management plan. [facility] Compounded Tirzepatid e [email or web address] Here are the next steps regarding your [facility] CustomRx prescripti on: The day after your visit you will receive an email from [email or web address] to purchase your medication s. We recommend adding this email to your contact list to prevent it from being filtered by spam/junk filters. Please ensure you click the link in the email to confirm the products you would like. Once you have verified you would like to receive this product from that email and completed the purchase, your prescripti on will be processed. If you do not receive the email, you can purchase your CustomRX medication s in the [facility] screen making supervisor at [email or web address]. Once you login click on Custom RX in the left side panel, then select the items you wish to purchase. You will receive an email and text when your order ships. Please allow 5-7 business days from time of purchase to arrival of the medication . If you have any questions at any time, please reach out to us here at [facility], we are happy to help. Menopausal symptom 88807 002 N95.1 - Currently on estradiol 1 mg, noted to be the highest dose; dosage increased to 200 (tablet strength as discussed) for symptomati c relief.Pt wishes for increase of progestero ne from 100mg to 200mg as tried and significan tly helps with improved sleep.- Prescripti on sent to [facility]. Overweight [id number] E66 .3 - Continuing tirzepatid e; previously on 7.5 mg dosage, next supply to be ordered at 10 mg.- No nausea reported; patient declined prescripti on for ondansetro n.- Scheduled follow-up appointmen t on July 16 at 8:30 AM. Disorder o f thyroid gland 17780590 E07.89 - Patient has an upcoming thyroid evaluation ; instructed to report any abnormal results as thyroid dysfunctio n may affect sleep. [id number] KELLIE CUNNINGHAM NP Main Office [address] [place] [address] 07/02/2024 14:15:13 07/03/2024 04:12:33 Reduced libido 2457510 R68.82 - Patient has noted only mild improvemen t in sexual desire on 5 mg topical testostero ne daily with occasional missed doses. No undesired virilizing side effects such as deepening of the voice or clitoromeg binh.- Transition ed to a 20 mg/g topical testostero ne formulatio n applied as 1 click daily from the [facility] ([place]) to maintain equivalent dosing.- Recent laboratory tests for total and free testostero ne performed; will obtain repeat labs in [facility] 6 8 weeks to ensure stable therapeuti c levels following the [facility] change.- Scheduled follow-up in 90 days (September 24) to evaluate efficacy, review lab results, and authorize any refills. Perimenopa usal disorder 452438370 N95.9 The patient is experienci ng significan t symptoms related to hormonal changes that impact their quality of life and ability to function profession ally and/or personally . We reviewed lifestyle modificati ons, integrativ e therapies, hormonal options as well as other medication s used to treat common menopausal symptoms. Pt was informed that, as with any drug, there are some potential risks associated with use of testostero ne. This includes, but are not limited to acne, mood changes, excessive hair growth, and weight gain. The doses that are prescribed for women typically will not cause male hormone side effects. Rarely high doses could lead to hair loss, deepening of the voice or enlargemen t of the clitoris and these changes may not be reversible . We discussed potential health risks that may be associated with hormone therapy including risks related to breast cancer, uterine cancer, gallbladde r disease, dementia and others. Many of these concerns are related to older types of hormones that are no longer recommende d today and some of these concerns differ depending on the component of hormones (estrogen vs progestero ne) and the mode of delivery. After review of the potential benefits of testostero ne, the alternativ es and the risks of therapy this patient prefers a trial of testostero ne. Based on this shared decision making testostero ne therapy will be offered. [facility] given [id number] Z71.9 - Explained the process for filling the topical testostero ne prescripti on at the new [facility], including account setup, ordering, shipping, and payment.- Advised patient to contact the clinic with concerns if symptomati c changes or side effects arise.- Educated on the importance of consistent daily applicatio n to achieve optimal results and the need for timely follow-up lab testing. [id number] Precious Glass NP Main Office [address] [place] [address] 07/16/2024 08:40:48 07/17/2024 04:05:45 Abnormal weight gain 640042782 R63.5 goal weight 135-140lb [facility] Compounded Tirzepatid e [email or web address] Here are the next steps regarding your [facility] CustomRx prescripti on: The day after your visit you will receive an email from [employer] to purchase your medication s. We recommend adding this email to your contact list to prevent it from being filtered by spam/junk filters. Please ensure you click the link in the email to confirm the products you would like. Once you have verified you would like to receive this product from that email and completed the purchase, your prescripti on will be processed. If you do not receive the email, you can purchase your CustomRX medication s in the [facility] screen making supervisor at [email or web address]. Once you login click on Custom RX in the left side panel, then select the items you wish to purchase. You will receive an email and text when your order ships. Please allow 5-7 business days from time of purchase to arrival of the medication . If you have any questions at any time, please reach out to us here at [facility], we are happy to help. Obesity 917231329 E66.9 - Weight measured previous month at 148.6 lbs current weight 146.2 and BMI 24.3 Pt reported no side effects wishes to continue with current tirzepatid e 10mg dosage. - See Overweigh t below for treatment/ management plan. [facility] Compounded Tirzepatid e [email or web address] de Here are the next steps regarding your [facility] CustomRx prescripti on: The day after your visit you will receive an email from [employer] to purchase your medication s. We recommend adding this email to your contact list to prevent it from being filtered by spam/junk filters. Please ensure you click the link in the email to confirm the products you would like. Once you have verified you would like to receive this product from that email and completed the purchase, your prescripti on will be processed. If you do not receive the email, you can purchase your CustomRX medication s in the [facility] screen making supervisor at [email or web address]. Once you login click on Custom RX in the left side panel, then select the items you wish to purchase. You will receive an email and text when your order ships. Please allow 5-7 business days from time of purchase to arrival of the medication . If you have any questions at any time, please reach out to us here at [facility], we are happy to help. Start Bundle D Tirzepatid e: 1mL (10mg)/wee k - [facility] Rx Inject 100 units (10mg/1ml) subcutaneo usly once weekly. menopausal symptom - Currently on estradiol 1 mg, noted to be the highest dose; dosage increased to 200 (tablet strength as discussed) for symptomati c relief.Pt wishes for increase of progestero ne from 100mg to 200mg as tried and significan tly helps with improved sleep. - Prescripti on sent to [facility]. Start Prometrium 200 mg capsule 1 capsule every day at bedtime for 30 days disorder of thyroid gland - Patient has an upcoming thyroid evaluation ; instructed to report any abnormal results as thyroid dysfunctio n may affect sleep. overweight - Continuing tirzepatid e; previously on 7.5 mg dosage, next supply to be ordered at 10 mg. - No nausea reported; patient declined prescripti on for ondansetro n. - Scheduled follow-up rakesh campo on July 16 at 8:30 AM. Health Concerns Section Related Observation LastModified by Organization Detai ls LastModified Time None Recorded Concern Status LastModified by Organization Details LastModified Time None Recorded Advance Directives Directive None Recorded Payers Encounter Date Sequence Insurance Name Policy Number Policy Doyle Covered Member ID Doyle Member ID Guarantor Name 05/15/2024 1 [place] [id number] Nelida Cuenca [id number] Nelida Cuenca 06/04/2024 1 [place]) [id number] Nelida Cuenca [id number] Nelida Cuenca 06/18/2024 1 [place]) [id number] Nelida Cuenca [id number] Nelida Cuenca 07/02/2024 1 [place]) [id number] Nelida Cuenca [id number] Nelida Cuenca 07/16/2024 1 [place]) [id number] 9 Nelida Cuenca [id number] Nelida Cuenca Notes Date Note Type Note Provider Name and Address Organization Details Recorded Time 05/15/2024 text/html Patient is a 48 year old female presenting for a follow-up visit regarding weight management and medication side effects. Weight Management:- Patient reports a weight loss of 2.6 pounds over the past 3 weeks.- Current BMI is 25, which falls within the healthy range.- Patient is currently on semaglutide 1.5mg for weight management. Medication Side Effects:- Patient is experiencing side effects from semaglutide, but wishes to continue at the current dosage of 1.5mg.- To manage these side effects, a prescription for Zofran, a medication that dissolves under the tongue, will be provided. Follow-up Visit:- A follow-up visit has been scheduled for either June 04 or . Current Meds:Arousal Cream ([facility] [facility])sidenafil 1% /Theophylline 3% / Arginine 6%Apply 1 mL to clitoris or labia 15-30 minutes prior to sexual activity PRN daily.Note to patient: Massage 1 mL to clitoris and labia 15-30 minutes prior to sexual activity. Wash hands after application.Auvelity 45 mg-105 mg tablet, extended releaseTAKE 1 TABLET BY MOUTH TWICE DAILYBundle D: 1.5 mL/week - Midi RxCYANOCOBALAMIN/SEMAGL UTIDE 1 mg/mL + Weight Management KitInject 150 units (1.5mg) subcutaneously once weekly.Note to patient: Inject 1.5ml SQ (sub-cutaneous) once weekly in your lower abdomen. Clean the skin with an alcohol pad prior to injecting, and use a dextroamphetamine-amphe tamine ER 20 mg 24hr capsule,extend releaseTAKE 1 CAPSULE BY MOUTH EVERY MORNINGEstrace 0.01% (0.1 mg/gram) vaginal creamApply to vulva and vagina 1 gm nightly for 2 weeks then reduce to two to three times per week thereafter.estradioL 2 mg tabletTAKE 1 TABLET BY MOUTH EVERY DAYEstriol+ Face Cream (Midi Custom Rx)Estriol 0.3% DMAE 3% Hyaluronic Acid 0.5% Face CreamApply 1 gram (equivalent to 1 pump) directly to face and neck twice daily.Note to patient: Apply 1 gram (equivalent to 1 pump) directly to face and neck on clear, dry skin. Wash hands after application.levothyroxi neThis medication cannot be associated with an active order type and can no longer be [id number] am 0.5 mg tablet Virtual Visit AttestationModality: VideoProvider Location: Home Patient Location: Home Patient State: {{AL AK AZ AR CA CO CT DE DC FL GA HI ID IL* I N [place] MARILEE VERDUZCO MD ME FL MN MS MO MT NE NV NH NJ NM NY NC ND OH OK O R PA RI SC SD TN TX [facility]}} Precious Glass, ESMER [address] [place], [address], [facility] [employer] 05/15/2024 09:58:47 06/04/2024 text/html Patient is a 48 year old female presenting to discuss potential discontinuation of Slynd due to partner's vasectomy, adjustment of estradiol dosage, and weight management with tirzepatide. Contraceptive Use:- Patient is considering discontinuing Slynd as her partner has undergone a vasectomy. Hormonal Replacement Therapy:- Patient is currently on estradiol tablets at a dose of 2 milligrams.- There is a discussion about reducing the estradiol dosage to 1 milligram for menopause management.- Patient is also on progesterone taking a 100 milligram capsule at bedtime. Weight Management:- Patient is currently on semaglutide and tirzepatide for weight management.- Current weight and goal weight were discussed but not explicitly stated in the transcript.- There is a plan to increase the dose of tirzepatide from 5 milligrams to 7.5 milligrams. Other Medications:- Patient is on levothyroxine at a dose of 88 micrograms.- Patient is also taking lorazepam (Ativan) 0.5 milligrams as needed.- Patient uses Midicustom facial cream and vaginal estrogen cream.- Patient's use of ondosterone or zofran for nausea was queried but no clear response was provided in the transcript. PMHx:- PCOS Current Meds:- Levothyroxine 88 mcg- Ondansetron- Lorazepam 0.5 mg as needed- Estradiol 2 mg- Midicustom facial cream- Vaginal estrogen cream- Semaglutide- Tirzepatide 5 mg Virtual Visit AttestationModality: VideoProvider Location: Home Patient Location: Home Patient State: {{AL AK AZ AR CA CO CT DE DC FL GA HI ID IL* I N [place] MARILEE VERDUZCO MD ME FL MN MS MO MT NE NV NH NJ NM NY NC ND OH OK O R PA RI SC SD TN TX UT VT VA [place]}} [place] [address] [place], [address], [facility] - [employer] 07/16/2024 09:42:41 06/18/2024 text/html The patient is a 48-year-old female with a history of menopausal symptoms and weight management presenting for follow-up. Menopausal Symptoms- Currently on estradiol 1 mg for menopausal symptoms.- Reports sleep disturbances.- Upcoming thyroid check. Weight Management- Current weight: 148.6 lbs (down from 150.2 lbs).- BMI: 24.7 (previously 25).- Goal weight: 135-140 lbs.- Recently switched from semaglutide to tirzepatide 7.5 mg last month.- Denies experiencing nausea with tirzepatide. Current Meds:Arousal Cream (Midi Custom Rx)sidenafil 1% /Theophylline 3% / Arginine 6%Apply 1 mL to clitoris or labia 15-30 minutes prior to sexual activity PRN daily.Note to patient: Massage 1 mL to clitoris and labia 15-30 minutes prior to sexual activity. Wash hands after application.Auvelity 45 mg-105 mg tablet, extended releaseTAKE 1 TABLET BY MOUTH TWICE DAILYBundle C Tirzepatide: 0.75mL (7.5mg)/week - Midi RxTIRZEPATIDE (4 ML) + Injection KitInject 75 units (7.5mg/0.75ml) subcutaneously once weekly.Weeks 9-12 dextroamphetamine-amphe tamine 10 mg tabletTAKE 1 TABLET BY MOUTH DAILY IN THE MORNINGdextroamphetamin e-amphetamine ER 20 mg 24hr capsule,extend releaseTAKE 1 CAPSULE BY MOUTH EVERY MORNINGEstrace 0.01% (0.1 mg/gram) vaginal creamApply to vulva and vagina 1 gm nightly for 2 weeks then reduce to two to three times per week thereafter.estradioL 1 mg tabletTAKE 1 TABLET BY MOUTH EVERY DAYEstriol+ Face Cream (Midi Custom Rx)Estriol 0.3% DMAE 3% Hyaluronic Acid 0.5% Face CreamApply 1 gram (equivalent to 1 pump) directly to face and neck twice daily.Note to patient: Apply 1 gram (equivalent to 1 pump) directly to face and neck on clear, dry skin. Wash hands after application.levothyroxi ne 88 mcg tabletTAKE 1 TABLET BY MOUTH EVERY MORNING BEFORE BREAKFASTLORazepam 0.5 mg tabletondansetron 4 mg disintegrating tabletDISSOLVE 2 TABLETS ON THE TONGUE EVERY 8 HOURS FOR 15 DAYS NEEDED FOR NAUSEAproGESTerone micronized 100 mg capsuleTAKE 1 CAPSULE BY MOUTH EVERY DAY AT BEDTIME Virtual Visit AttestationModality: VideoProvider Location: Home Patient Location: Home Patient State: {{AL VERÓNICA AZ AR CA CO CT DE DC FL GA HI ID IL* I Omid WALKER MN MS MO MT NE [facility] ND OH OK O R PA RI SC SD TN TX UT [facility] W [place]}} [place] [address] [place], [address], [facility] [employer] 06/18/2024 10:02:32 07/02/2024 text/html Virtual Visit AttestationModality: VideoProvider Location: Home Patient Location: Home Patient State: {{AL AK AZ AR CA CO CT DE DC FL GA HI ID IL* I N MORGAN WALKER MN MS MO MT NE NV WA NJ [facility] ND OH OK O R PA RI SC SD TN TX UT VT [facility] W[place]}} The patient is a 48-year-old female with a history of low libido presenting for testosterone therapy management. Low Libido- Reports a significant decrease in sex drive, describing it as prior to starting testosterone therapy.- Has been using topical testosterone 5 mg (2 clicks) for almost a year to improve libido and genital arousal.- Admits to inconsistent application, approximately 3-4 days a week.- Notes a slight improvement in sexual interest and genital arousal since starting therapy.- Denies any side effects such as clitoromegaly.- Recently started seeing a sex therapist to address issues with body and mind connection during sexual activity. PMHx:- Low sex drive Current Meds:- Topical Testosterone 5 [place] [address] [address], [place], [address], [place] [employer] 07/02/2024 16:13:14 07/16/2024 text/html The patient is a 48-year-old female presenting for follow-up on weight management. Pt reportxs - Weight measured previous month at 148.6 lbs current weight 146.2 and BMI 24.3 Pt reported no side effects wishes to continue with current tirzepatide 10mg dosage. Contraceptive Use:- Patient is considering discontinuing Slynd as her partner has undergone a vasectomy.Hormonal Replacement Therapy:- Patient is currently on estradiol tablets at a dose of 2 milligrams.- There is a discussion about reducing the estradiol dosage to 1 milligram for menopause management.- Patient is also on progesterone , taking a 100 milligram capsule at bedtime. Weight Management- Current weight is 146.2 lbs.- Goal weight is 135-140 lbs.- Currently taking tirzepatide 10 mg for weight management.Other Medications:- Patient is on levothyroxine at a dose of 88 micrograms.- Patient is also taking lorazepam (Ativan) 0.5 milligrams as needed.- Patient uses Midicustom facial cream and vaginal estrogen cream.- Patient's use of ondosterone or Zofran for nausea was queried but no clear response was provided in the transcript. PMHx:- PCOSCurrent Meds:- Levothyroxine 88 mcg- Ondansetron- Lorazepam 0.5 mg as needed- Estradiol 2 mg- Midicustom facial cream- Vaginal estrogen cream- Semaglutide- Tirzepatide 10 mg Virtual Visit AttestationModality: VideoProvider Location: Home Patient Location: Home Patient State: {{AL AK AZ AR CA CO CT DE DC FL GA HI ID IL* I N [place] MARILEE VERDUZCO MD ME FL MN MS MO MT NE NV NH NJ NM NY NC ND OH OK O R PA RI SC SD TN TX UT VT VA WA W[place]}} [place] [address] [place] [place], [place], , [facility] 07/16/2024 15:59:53 OBGyn Episode Ob Episode Information Episode Created Date Number of Fetuses Patient Bloodtype Patient rh Status Prepregnancy Weight lbs Domestic Partner Domestic Partner Phone Father Name Experimental Electronics Developer Status 05/17/19 25 1 OPEN Fetus Data First Name Last Name Admitted to NICU Weight (g) Sex Living Outcome Pediatric Complications Fetus ID Race Codes Race Delivery Type [id number] Porfirio Calculation Initial Porfirio Date Initial Exam Date Initial Exam Provider Initial Ultrasound Date Last Menstrual Period Date Ultra Sound Weeks Gestation 05/17/2024 0 Eighteen To Twenty Week Porfirio Update Ultra Sound Date Fundal Height At Umbil Quickening Date Ultra Sound Latest Weeks Gestation Final Porfirio Confirmed By Final Porfirio Confirmed Date Final Porfirio Date Ultra Sound Latest Days Gestation 0 0 Pre-nasrin Flowsheet Flowsheet Date 06/04/2024 Cruz Score Blood Edema Fundus Height Fundus Units Glucose Ketones Leukocytes Nitrite Labor Signs Protein Cervic Dilation Cervic Effacement Cervic Station Type Weight in lbs Pre/Post Dialysis Refused Weight 150.76031388888 BP Diastolic BP Location Tested BP Systolic BP Type Fetus Heart Rate Present Fetus Movement Comments Flowsheet Date 06/18/2024 Cruz Score Blood Edema Fundus Height Fundus Units Glucose Ketones Leukocytes Nitrite Labor Signs Protein Cervic Dilation Cervic Effacement Cervic Station Type Weight in lbs Pre/Post Dialysis Refused Weight 148.352463069180 BP Diastolic BP Location Tested BP Systolic BP Type Fetus Heart Rate Present Fetus Movement Comments Flowsheet Date 07/02/2024 Cruz Score Blood Edema Fundus Height Fundus Units Glucose Ketones Leukocytes Nitrite Labor Signs Protein Cervic Dilation Cervic Effacement Cervic Station Type Weight in lbs Pre/Post Dialysis Refused BP Diastolic BP Location Tested BP Systolic BP Type Fetus Heart Rate Present Fetus Movement Comments Flowsheet Date 07/16/2024 Cruz Score Blood Edema Fundus Height Fundus Units Glucose Ketones Leukocytes Nitrite Labor Signs Protein Cervic Dilation Cervic Effacement Cervic Station Type Weight in lbs Pre/Post Dialysis Refused Weight 146.457223965844 BP Diastolic BP Location Tested BP Systolic BP Type Fetus Heart Rate Present Fetus Movement Comments Menstrual History Last Menstrual Date Menses Monthly On Bcp Conception Prior Menses Frequency Hcg Plus Date Menarche Onset Age Delivery Information Delivery Date Delivery Type Labor Anesthesia Weeks Gestation Incision Type Labor Labor Length Hrs Delivered By Post Complications Tubal Sterilization Discharge Date Comments Discharge Information Feeding Method Contraceptive Method Maternal HG B and HCT Levels
--- OUTSIDE RECORDS SUMMARY | 2024-07-25 09:06 | XMS_ITS | Encounter Summary ---
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
--- OUTSIDE RECORDS SUMMARY | 2024-07-25 09:06 | XMS_ITS | Encounter Summary ---
Author Organization [facility] Address [address] [place] [address] Care Team Providers Care Regulatory Manager Name Role Phone Genevieve Newman NP Primary Care Provider [phone] Encounter Details Date Type Department Care Team (Late st Contact Info) Description 12/22/2020 [place]vút Message Enc [facility] Family Medicine - [place] [address] [facility] [address] [place] [id number] Genevieve Newman, ESMER [address] [place] [address] RE: Follow Up/Update Social History Tobacco Use [...] on file 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
--- OUTSIDE RECORDS SUMMARY | 2024-07-25 09:06 | XMS_ITS | Clinical Summary ---
Author Organization 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 GIVEN 10/14/2021 FGS-0635 / / [id number] Description:placed at 31 cm. 96 hour study off medication. Procedures Procedure Name Priority Date/Time Associated Diagnosis Comments COLONOSCOPY REPORT 09/03/2020 9: 29 AM CDT from Last 3 Months or Most Recently Relevant to Health Maintenance Results * COLONOSCOPY REPORT (09/03/2020 9:29 AM CDT) Narrative Procedure Note Linsey Schneider MD - 09/03/2020 9:28 AM CDT [facility] GI Patient Name: Nelida Cuenca Procedure Date: [...] bowel preparation was evaluated using the BBPS (Sunny Side Bowel Preparation Scale) with scores of: Right [...] previously scheduled. Procedure Code(s): --- Professional --- 22393, Colonoscopy, flexible; with biopsy, single or multiple Diagnosis Code(s): --- Professional --- Z12.11, Encounter for screening for malignant neoplasm of colon K64.9, Unspecified hemorrhoids K63.3, Ulcer of intestine CPT copyright 2019 [employer]. All rights reserved. The codes documented in this report are preliminary and upon nitrogen operator review may be revised to meet current compliance requirements. Linsey Schneider, 09/03/2020 9:28:14 AM This report has been signed electronically. Number of Addenda: 0 Estimated Blood Loss: Estimated blood loss was minimal. Linsey Schneider MD GI PROCEDURE ORDERABLES F inal Result from Last 3 Months or Most Recently Relevant to Health Maintenance Insurance Advance Directives For more information, please contact: [phone] * Full Code (Latest Code Status on File) Date Activated Date Inactivated Comments 09/03/2020 7:17 AM 09/03/2020 12:26 PM Care Teams Radiologist Diagnostic Relationship Specialty Start Date End Date Genevieve Newman APN PCP - General NURSE PRACTITIONER 07/18/20
--- OUTSIDE RECORDS SUMMARY | 2024-07-25 09:06 | XMS_ITS | Patient Health Record ---
Author Organization [facility] Address [address] [place] [address] Care Team Providers Care Pull Worker Name Role Phone HEIDY SANABRIA, STEWART Primary Care Provide r Unavailable Dannie Munoz Unavailable [phone] Migration, Provider Unavailable Unavailable Allergies Allergen (clinical [...] (0.1 %) TRANSDERMAL GEL PACKET *Reorder from [employer] for eRx and Interaction Alerts* 08/08/2023 Active [...] Risk Notes Problem Mild recurrent major depression (91320365) Major depressive disorder, recurrent, mild (F33.0) Active confirmed Problem Attention deficit hyperactivity disorder, combined type (53855155) Attention-deficit hyperactivity disorder, combined type (F90.2) Active confirmed Vital Signs Heart Rate 88 /min 01/30/2024 Height-cm 167.64 cm 01/30/2024 Blood pressure diastolic 64 mm Hg 01/30/2024 Weight-kg 57.61 kg 01/30/2024 Height 66.00 in 01/30/2024 Blood pressure systolic 95 mm Hg 01/30/2024 Weight 127.0 lbs 01/30/2024 BMI 20.5 kg/m2 01/30/2024 Encounters Encounter Location Date Provider Diagnosis [facility] [employer] [facility] [address] [facility] [address] [place] [address] 08/08/2023 Dannie Munoz Major depressive disorder, recurrent, mild F33.0 ; Generalized anxiety disorder F41.1 and Attention-deficit hyperactivity disorder, combined type F90.2 [facility] [employer] [facility] [address] [place] [address] 10/24/2023 Dannie Munoz Major depressive disorder, recurrent, mild F33.0 and Attention-deficit hyperactivity disorder, combined type F90.2 [facility] [employer] [facility] [address] [place] [address] 01/30/2024 Dannie Munoz Major depressive disorder, recurrent, mild F33.0 and Attention-deficit hyperactivity disorder, combined type F90.2 [facility] [employer] [facility] [address] [place] [address] 08/13/[address] [facility], [facility] [address] [place] [address] 08/14/[address] [facility], [facility] [address] [place] [address] 10/19/2023 Dannie Munoz Major depressive disorder, recurrent, mild F33.0 [facility], [facility] [address] [place] [address] 07/05/2024 Dannie Munoz Major depressive disorder, recurrent, mild F33.0 [facility], [facility] [address] [place] [address] 09/20/2023 Dannie Munoz Attention-deficit hyperactivity disorder, combined type F90.2 [facility], [facility] [address] [place] [address] 10/18/[address] [facility], [facility] [address] [place] [address] 10/19/[address] [facility], [facility] [address] [place] [address] 11/04/[address] [facility], [facility] [address] [place] [address] 12/05/2023 Dannie Munoz Major depressive disorder, recurrent, mild F33.0 and Attention-deficit hyperactivity disorder, combined type F90.2 [facility], [facility] [address] [place] [address] 01/01/2024 Dannie Munoz Attention-deficit hyperactivity disorder, combined type F90.2 [facility], [facility] [address] [place] [address] 03/10/2024 Dannie Munoz Attention-deficit hyperactivity disorder, combined type F90.2 [facility], [facility] [address] [place] [address] 05/10/2024 Dannie Munoz Attention-deficit hyperactivity disorder, combined type F90.2 [facility], [facility] [address] [place] [address] 06/06/[address] [facility], [facility] [address] [place] [address] 06/06/2024 Dannie Munoz Attention-deficit hyperactivity disorder, combined type F90.2 [facility] [address] [place] [address] 06/06/2024 Dannie Munoz [facility] [address] [place] [address] 06/06/2024 Dannie Munoz [facility] [address] [place] [address] 07/09/2024 Dannie Munoz Attention-deficit hyperactivity disorder, combined [...] depressive disorder, recurrent, mild (ICD-10 - F33.0) 03/10/2024 Attention-deficit hyperactivity disorder, combined type (ICD-10 - F90.2) 05/10/2024 Attention-deficit hyperactivity disorder, combined type (ICD-10 - F90.2) 06/06/2024 Attention-deficit hyperactivity disorder, combined type (ICD-10 - F90.2) 07/05/2024 Major depressive disorder, recurrent, mild (ICD-10 - F33.0) 07/09/2024 Attention-deficit hyperactivity disorder, combined type (ICD-10 - F90.2) 01/01/2024 Attention-deficit hyperactivity disorder, combined type (ICD-10 [...] twice daily. Refill prescription and send to [facility] pharmacy. - Encourage the patient to maintain [...] monitor the patient's progress and medication management. 08/08/2023 Major depressive disorder, recurrent, mild (ICD-10 [...] PM, [address], [place], [address], Insurance Providers Payer Name Payer Address Payer Phone Subscriber Number Group Number Insured Name Patient Relationship to Insured Coverage Start Date Coverage End Date [facility] [address] [place] [address] [id number] KEVIN MONTEZ Self - patient is the insured Medical (General) History Medical History History ICD Code Problems: Attention deficit hyperactivit y disorder, combined type Generalized anxiety disorder Mild recurrent major depression Severe recurrent major depression withou t psychotic features , Surgical History Surgery Date(Month/Year) Breast surgery (61403) Cosmetic surgery 03/28/2003 Any surgical history 09/29/2005 Endometrial ablation (39133) 02/05/2011 Other 02/05/2011
[2024-07-25] MEDS: TRANEXAMIC ACID 1,000 MG/10 ML AMPUL 1000 MG IV PUSH (09:38)
[2024-07-25] MEDS: LACTATED RINGERS 1,000 ML 30 ML IV CONT ×2 (09:38→13:37)
[2024-07-25 09:39] LABS: Glucose Point of Care 83 mg/dl (65-105)
--- NOTE | 2024-07-25 10:50 | SUR.PREOP ---
FEMALE STAFF IN ROOM WHILE DR CORONA MARKED PT. SPOUSE ALSO AT BEDSIDE
--- NOTE | 2024-07-25 10:54 | WPDHPUPDATE1 ---
History and Physical Update Update Date/Time: 07/25/24 10:54 History and Physical has been reviewed, including an updated exam of the patient. There are NO changes in the patient's condition. Risks, benefits, and alternatives have been discussed and questions answered. Patient agrees to proceed with procedure.
--- NOTE | 2024-07-25 10:57 | W.PM.PROC2 ---
Procedure Note - Detailed Date of Procedure 07/25/24 Pre-op Diagnosis History of Breast Augmentation Post-op Diagnosis Same Procedure Performed Right breast capsulotomy / capsulorraphy Surgeon Cole Mo MD Anesthesia General Description of Procedure Preoperatively the risks, benefits, alternatives were discussed in extensive detail. I wanted to be very realistic about the risks involved as well as expectations. I was clear about how we could actually make her worse as well as how this may have no improvement. Explained always risk of implant injury or loss. Answered all questions to satisfaction. Voiced a clear understanding. Consent obtained. She was taken the operating room placed supine on the operating room table. Anesthesia provided by anesthesiology and prepped and draped in a standard sterile fashion. Surgical time-out was taken. 1% lidocaine and 0.25% Marcaine with epinephrine was used to provide a field block. Tegaderm nipple kam were placed. Fifteen blade used to excise the previous right IMF scar. Dissection was continued down until the capsules were identified and entered. I elevated deep to implant (retracted with retractor soaked in betadine / abx solution) and completed superior / medial capsulotomy followed by inferior / lateral popcorn capsulorraphy. I then copiously irrigated with Phase One This was closed with 2-0 PDS followed by 3-0 Monocryl and a running subcuticular 4-0 Monocryl followed by tissue glue. Dressings were placed. She was woken taken to the PACU without difficulty. All instrument sponge counts were correct at the end of the case. Estimated Blood Loss 5 Drains No Packing No Pathology None sent Complications No immediate complications Condition Stable Disposition PACU
[2024-07-25] MEDS: SCOPOLAMINE 1 MG PATCH 1 PATCH TRANSDERM (11:13)
[2024-07-25] MEDS: ceFAZolin SODIUM 2 GM/20 ML SW SYRINGE IV PUSH (11:14)
[2024-07-25] MEDS: LIDOCAINE 1% LOCAL INJ 20 ML VIAL 15 ML INFILTRATE (11:25)
[2024-07-25] MEDS: BUPIVACAINE/EPINEPHRINE 0.25% 10 ML VIAL INFILTRATE (11:25)
[2024-07-25] MEDS: NACL 0.9% IRRIG POUR BOTTLE 900 ML, GENTAMICIN SULFATE INJ 160 MG, ceFAZolin 2 GM, POVI... IRRIGATION (11:48)
--- NOTE | 2024-07-25 12:41 | WPDANESPN ---
Anes - Prog Note Post-Op Date/Time: 07/25/24 12:41 Cardiovascular status: normal Respiratory status: normal Airway patency: baseline Mental status: baseline Post-Op hydration status: normal Vital Signs: Last Vital Signs Temp 36.1 C L 07/25/24 12:16 Pulse 89 07/25/24 12:30 Resp 20 07/25/24 12:30 BP 96/57 L 07/25/24 12:30 Pulse Ox 100 07/25/24 12:30 O2 Del Method Simple Face Mask 07/25/24 12:30 O2 Flow Rate 8 07/25/24 12:30 Pain Score (VAS): 3 I/O: Intake & Output 07/24/24 07/25/24 07/25/24 23:59 07:59 15:59 Intake Total 0 Balance 0 07/25/24 09:35 POC Capillary Glucose 83 Post-procedural complaints: none Patient Feedback: Patient satisfied with anesthetic care. Other Findings: Patient vital signs back to baseline. Patient denies nausea and vomiting. Patient's pain under control. Patient OK for discharge.
[2024-07-25] MEDS: fentaNYL CITRATE INJ (*CRX) 100 MCG/2 ML VIAL 25 MCG IV PUSH ×4 (12:45→13:41)
[2024-07-25 13:25] LABS: Glucose Point of Care 81 mg/dl (65-105)
[2024-07-25] MEDS: oxyCODONE HCL (*CRX) 5 MG TAB IR PO (13:27)
== END 2024-07-25 08:40 | disposition home or self-care (01) ==
PROVIDERS: PCP Nurse Practitioner; Visit Provider Surgery Plastic and Reconstructive Surgery
PROC: (CPT 19342; principal; 2024-07-25 10:30)
DX: N64.89 Other specified disorders of breast (principal)
CPT/HCPCS: 19370

== ENCOUNTER 2025-02-18 09:20 | Emergency (ER) | payer BC, SELFPAY ==
--- OUTSIDE RECORDS SUMMARY | 2025-02-11 02:00 | XMS_ITS ---
Author Organization [facility] [employer] Address [address] [place] [address] Care Team Providers Care Manager Study Name Role Phone STEWART HWANG APRN Primary Care Provide r Unavailable Dannie Munoz Unavailable [phone] Avila Wynn Unavailable [phone] REASON FOR VISIT Spravato Treatment (84 mg) #8 - 15, I am here for spravato treatment Medications Medication SIG (Take, Route, Frequency, Duration) Notes Start Date End Date Status LORazepam 0.5 MG Tablet 1 tablet Oral 3 times a day; Duration: 6 days As needed F419,Unavailable Active Amphetamine-Dextroam phet ER 25 MG Capsule Extended Release 24 Hour 1 capsule every morning Orally Once a day; Duration: 30 days 01/10/2025 Active buPROPion HCl ER (SR) 200 MG Tablet Extended Release 12 Hour 1 tablet in the morning Orally Once a day; Duration: 30 days 01/10/2025 Active Auvelity 45-105 MG Tablet Extended Release 1 tablet Oral twice a day; Duration: 30 days Active Amphetamine-Dextroam phetamine 10 MG Tablet 1 tablet in the morning Orally once a day; Duration: 30 days 02/04/2025 Active Synthroid 88 MCG Tablet 1 tablet in the morning on an empty stomach Oral daily 08/08/2023 Active metFORMIN HCl 500 MG Tablet 1 tablet with a meal Oral daily 08/08/2023 Active Prometrium 200 MG Capsule 1 capsule at bedtime Orally Once a day Active ESTRADIOL 0.5 MG/0.5 GRAM (0.1 %) TRANSDERMAL GEL PACKET *Reorder from [employer] for eRx and Interaction Alerts* 08/08/2023 Active Spravato (84 MG Dose) 28 MG/DEVICE Solution Therapy Pack 3 sprays in each nostril Nasally 02/11/2025 Active Spravato (84 MG Dose) 28 MG/DEVICE Solution Therapy Pack 3 sprays in each nostril Nasally twice a week; Duration: 1 days 02/06/2025 Active Spravato (84 MG Dose) 28 MG/DEVICE Solution Therapy Pack 3 sprays in each nostril Nasally twice a week Active Social History Sex Assigned At : Social History Observation Description Sex Assigned At Female Vital Signs Blood pressure systolic 106 mm Hg 02/12/20 25 Blood pressure diastolic 69 mm Hg 025 Heart Rate 77 /min 02/11/2025 Height 66.00 in 02/11/2025 Oximetry 93 % 02/11/2025 Height-cm 167.64 cm 02/11/2025 Encounters Encounter Location Date Provider Diagnosis [facility] [address] [place] [address] 02/11/2025 Avila Wynn Major depressive disorder, recurrent severe without psychotic features F33.2 Assessments Encounter Date Diagnosis (ICD Code) Assessment Notes Treatment Notes Treatment Clinical Notes Section Notes 02/11/2025 Major depressive disorder, recurrent severe without psychotic features (ICD-10 - F33.2) Plan Of Treatment Medication Medication Name Sig Start Date Stop Date Notes Spravato (84 MG Dose) 28 MG/DEVICE Solution Therapy Pack 3 sprays in each nostril Nasally 02/11/2025 Next Appt Details Follow Up: 02/13, Reason: Sp ravato Treatment Provider Name:Avila Wynn , 02/19/2025 08:00:00 AM, [address], [facility] [address], [address], Provider Name:Avila Wynn , 02/25/2025 08:00:00 AM, [address], [address] [place], [address], Provider Name:Avila Wynn , 03/04/2025 08:00:00 AM, [address], [facility] [address], [place], [address], Provider Name:Avilalucretia Dykesam , 03/11/2025 08:00:00 AM, [address], [address], [address], Provider Name:Avila Wynn , 03/18/2025 10:15:00 AM, [address], [address], [address], Progress Notes * DORCAS MONTEZOB:05/1975 (49 yo F)Acc No.[id number]:02/11/2025 Patient: KEVIN GARRIDO Provider: Radha WYNN MD :1975 A ge:49 Y S ex:Female Date:02/11/2025 Address:[address] [place], [place] [id number] Pcp:STEWART Jacobson QUILL LAYER-C Subjective: * Chief Complaints: * S pravato Treatment (84 mg) #8 - 15I am here for spravato treatment * HPI: E sketamine Administration: Time at the start of Administration: 08:15 Time of discharge: 10:15 Was patient monitored for at least 2 hours? Yes Was the patient clinically ready for discharge prior to the required 2 hours? No Serious adverse event during the treatment? no Any problems since the last treatment session? none Staff Notes for today's visit Who is picking the patient up? Lashanda When did the patient last eat? last night Any medication changes since last visit? none Esketamine Nasal Lyle Administration and Supervised Monitoring Staff attending the patient: Hillary Rainey Supervising provider as in rendering provider: Avila Wynn MD Is patient taking any of the following concomitant medication that may cause sedation of blood pressure changes? Benzodiazepine Yes Non-benzodiazepine sedative-hypnotics: No Psychostimulant: Yes Monoamine oxidase inhibitors [MAOIs]: No Dose of Spravato: 84 Mg Lot number [id number] Date: 11/26/2027. * Active Problem List F90.2 Attention-deficit hy peractivity disorder, combined type Modified On:09/21/2023W/U Status:confirmed F33.0 Major depressive dis order, recurrent, mild Modified On:10/19/2023W/U Status:confirmed F33.2 Severe episode of re current major depressive disorder, without psychotic features Modified On:11/27/2024/U Status:confirmed R53.83 Other fatigue Modified On:11/27/2024/U Status:confirmed G47.30 Sleep apnea, unspeci fied Modified On:12/24/2024/U Status:confirmed F33.1 Major depressive dis order, recurrent, moderate Modified On:01/10/2025U Status:confirmed * Medications: T akingSpravato (84 MG Dose) 28 MG/DEVICE Solution Therapy Pack 3 sprays in each nostril Nasally twice a week , Notes: (Ordered through Inventory)Spravato (84 MG Dose) 28 MG/DEVICE Solution Therapy Pack 3 sprays in each nostril Nasally twice a week Prometrium 200 MG Capsule 1 capsule at bedtime Orally Once a day ESTRADIOL 0.5 MG/0.5 GRAM (0.1 %) TRANSDERMAL GEL PACKET , Notes to Pharmacist: *Reorder from [employer] for eRx and Interaction Alerts*Synthroid 88 MCG Tablet 1 tablet in the morning on an empty stomach Oral daily metFORMIN HCl 500 MG Tablet 1 tablet with a meal Oral daily LORazepam 0.5 MG Tablet 1 tablet Oral 3 times a day As needed, Notes to Pharmacist: F419,UnavailableAmphetamine-Dextroamphet ER 25 MG Capsule Extended Release 24 Hour 1 capsule every morning Orally Once a day buPROPion HCl ER (SR) 200 MG Tablet Extended Release 12 Hour 1 tablet in the morning Orally Once a day Auvelity 45-105 MG Tablet Extended Release 1 tablet Oral twice a day Amphetamine-Dextroamphetamine 10 MG Tablet 1 tablet in the morning Orally once a day Medication List reviewed and reconciled with the patientTaking Spravato (84 MG Dose) 28 MG/DEVICE Solution Therapy Pack 3 sprays in each nostril Nasally twice a week , Notes: (Ordered through Inventory)Taking Spravato (84 MG Dose) 28 MG/DEVICE Solution Therapy Pack 3 sprays in each nostril Nasally twice a week Taking Prometrium 200 MG Capsule 1 capsule at bedtime Orally Once a day Taking ESTRADIOL 0.5 MG/0.5 GRAM (0.1 %) TRANSDERMAL GEL PACKET , Notes to Pharmacist: *Reorder from [facility] for eRx and Interaction Alerts*Taking Synthroid 88 MCG Tablet 1 tablet in the morning on an empty stomach Oral daily Taking metFORMIN HCl 500 MG Tablet 1 tablet with a meal Oral daily Taking LORazepam 0.5 MG Tablet 1 tablet Oral 3 times a day As needed, Notes to Pharmacist: F419,UnavailableTaking Amphetamine-Dextroamphet ER 25 MG Capsule Extended Release 24 Hour 1 capsule every morning Orally Once a day Taking buPROPion HCl ER (SR) 200 MG Tablet Extended Release 12 Hour 1 tablet in the morning Orally Once a day Taking Auvelity 45-105 MG Tablet Extended Release 1 tablet Oral twice a day Taking Amphetamine-Dextroamphetamine 10 MG Tablet 1 tablet in the morning Orally once a day Medication List reviewed and reconciled with the patient Objective: * Vitals: B P: 79/52 mm Hg,124/76 mm Hg,103/70 mm Hg,106/69mm Hg, HR: 75 /min,71 /min,73 /min,77/min, Oxygen sat %: 96 %,97 %,94 %,93%, Ht: 66.00 in, Ht-cm: 167.64 cm. Assessment: * Assessment: 1. M ajor depressive disorder, recurrent severe without psychotic features - F33.2 (Primary)? Plan: * Treatment: * Procedure Codes: G 2083 PROVISION OF GREATER THAN 56 MG ESKETAMINE NASAL SELF-ADMINISTRATION, INCLUDES 2 HOURS POST-ADMINISTRATION OBSERVATION G2083 * Follow Up: 04/15 (Reason: Spravato Treatment) Billing Information: * Procedure Codes: G2083 PROVISION OF GREATER THAN 56 MG ESKETAMINE NASAL SELF-ADMINISTRATION, INCLUDES 2 HOURS POST-ADMINISTRATION OBSERVATION G2083. * Electronic signature of Medardo Wynn MD on 02/18/2025 at 10:22 AM CLASS A LINEMAN Sign off status: Pending * Provider: Radha WYNN MD Date: 04/13/2024 Generated for Alicia alonso/Audrey/Maranda on: 04/20/2024 10:22 AM CLASS A LINEMAN
--- OUTSIDE RECORDS SUMMARY | 2025-02-13 02:00 | XMS_ITS ---
Author Organization [facility] [employer] Address [address] [place] [address] Care Team Providers Care Teaching Associate Name Role Phone HEIDY MOSELEY-Duc, STEWART Primary Care Provide r Unavailable Dannie Munoz Unavailable [phone] Avila Wynn Unavailable [phone] Allergies Allergen (clinical drug ingredient) Drug/Non Drug Allergy documented on EMR Reaction Allergy Type Onset Date Status aspirin Candido Aspirin Unknown Drug Allergy 08/08/2023 Ac tive REASON FOR VISIT Spravato Treatment (84 mg) #9 - 15, I am here for spravato treatment Medications Medication SIG (Take, Route, Frequency, Duration) Notes Start Date End Date Status ESTRADIOL 0.5 MG/0.5 GRAM (0.1 %) TRANSDERMAL GEL PACKET *Reorder from [employer] for eRx and Interaction Alerts* 08/08/2023 Active buPROPion HCl ER (SR) 200 MG Tablet Extended Release 12 Hour 1 tablet in the morning Orally Once a day; Duration: 30 days 01/10/2025 Active LORazepam 0.5 MG Tablet 1 tablet Oral 3 times a day; Duration: 6 days As needed F419,Unavailable Active metFORMIN HCl 500 MG Tablet 1 tablet with a meal Oral daily 08/08/2023 Active Synthroid 88 MCG Tablet 1 tablet in the morning on an empty stomach Oral daily 08/08/2023 Active Spravato (84 MG Dose) 28 MG/DEVICE Solution Therapy Pack 3 sprays in each nostril Nasally 02/11/2025 Active Prometrium 200 MG Capsule 1 capsule at bedtime Orally Once a day Active Spravato (84 MG Dose) 28 MG/DEVICE Solution Therapy Pack 3 sprays in each nostril Nasally twice a week 02/13/2025 Active Spravato (84 MG Dose) 28 MG/DEVICE Solution Therapy Pack 3 sprays in each nostril Nasally twice a week Active Spravato (84 MG Dose) 28 MG/DEVICE Solution Therapy Pack 3 sprays in each nostril Nasally twice a week; Duration: 1 days 02/06/2025 Active Amphetamine-Dextroam phetamine 10 MG Tablet 1 tablet in the morning Orally once a day; Duration: 30 days 02/04/2025 Active Auvelity 45-105 MG Tablet Extended Release 1 tablet Oral twice a day; Duration: 30 days Active Amphetamine-Dextroam phet ER 25 MG Capsule Extended Release 24 Hour 1 capsule every morning Orally Once a day; Duration: 30 days 01/10/2025 Active Social History Sex Assigned At : Social History Observation Description Sex Assigned At Female Vital Signs Blood pressure systolic 105 mm Hg 02/14/20 25 Blood pressure diastolic 54 mm Hg 025 Heart Rate 73 /min 02/13/2025 Height 66.00 in 02/13/2025 Oximetry 97 % 02/13/2025 Height-cm 167.64 cm 02/13/2025 Encounters Encounter Location Date Provider Diagnosis [facility] [address] [place] [address] 02/13/2025 Avila Wynn Major depressive disorder, recurrent severe without psychotic features F33.2 Assessments Encounter Date Diagnosis (ICD Code) Assessment Notes Treatment Notes Treatment Clinical Notes Section Notes 02/13/2025 Major depressive disorder, recurrent severe without psychotic features (ICD-10 - F33.2) Plan Of Treatment Medication Medication Name Sig Start Date Stop Date Notes Spravato (84 MG Dose) 28 MG/DEVICE Solution Therapy Pack 3 sprays in each nostril Nasally twice a week 02/13/2025 Next Appt Details Follow Up: 02/18/25, Reason: Spravato Follow Up Provider Name:Avila Wynn , 02/19/2025 08:00:00 AM, [address], [address], [place], [address], Provider Name:Avila Wynn , 02/25/2025 08:00:00 AM, [address], [address], [address], Provider Name:Avila Dykesam , 03/04/2025 08:00:00 AM, [address], [facility], [place], [address], Provider Name:Avila Shoemaker Rivera , 03/11/2025 08:00:00 AM, [address], [address], [address], Provider Name:Avila Shoemaker Rivera , 03/18/2025 10:15:00 AM, [address], [address], [address], Progress Notes * DORCAS MONTEZOB:05/1975 (49 yo F)Acc No.[id number]:02/13/2025 Patient: KEVIN GARRIDO Provider: Radha WYNN MD :1975 A ge:49 Y S ex:Female Date:02/13/2025 [facility] Pcp:STEWART Jacobson [employer] INTERN-C Subjective: * Chief Complaints: * S pravato Treatment (84 mg) #9 - 15I am here for spravato treatment * HPI: E sketamine Administration: Time at the start of Administration: 08:10am Time of discharge: 10:10am Was patient monitored for at least 2 hours? Yes Was the patient clinically ready for discharge prior to the required 2 hours? No Serious adverse event during the treatment? No Any problems since the last treatment session? No Staff Notes for today's visit Who is picking the patient up? Alisa When did the patient last eat? Last night Any medication changes since last visit? No Esketamine Nasal [place] Administration and Supervised Monitoring Staff attending the patient: Kylee Acuna CMA Supervising provider as in rendering provider: Avila Wynn MD Is patient taking any of the following concomitant medication that may cause sedation of blood pressure changes? Benzodiazepine Yes Non-benzodiazepine sedative-hypnotics: No Psychostimulant: Yes Monoamine oxidase inhibitors [MAOIs]: No Dose of Spravato: 84 Mg Lot number [id number] Date: 11/26/2027. * Active Problem List F90.2 Attention-deficit hy peractivity disorder, combined type Modified On:09/21/2023/U Status:confirmed F33.0 Major depressive dis order, recurrent, mild Modified On:10/19/2023U Status:confirmed F33.2 Severe episode of re current major depressive disorder, without psychotic features Modified On:11/27/2024U Status:confirmed R53.83 Other fatigue Modified On:11/27/2024 Status:confirmed G47.30 Sleep apnea, unspeci fied Modified On:12/24/2024 Status:confirmed F33.1 Major depressive dis order, recurrent, moderate Modified On:01/10/2025 Status:confirmed * Medical History: Problems: Attention deficit hyperactivity disorder, combined type Generalized anxiety disorder Mild recurrent major depression Severe recurrent major depression without psychotic features , Imported from [employer]: The patient has a history of various health conditions including impaired glucose tolerance, prediabetes, polycystic ovary syndrome, seborrheic dermatitis, hypothyroidism, type 2 diabetes mellitus without complications, and pelvic pain. These conditions were diagnosed and managed during several outpatient visits from 2020 to 2024 with healthcare providers including NURIA Hall, Rocio Pedraza CNM, Edmundo Koch MD, and Precious Glass NP. In 2023, the patient began experiencing abnormal weight gain, attention deficit hyperactivity disorder, generalized anxiety disorder, genitourinary syndrome of menopause, history of deep vein thrombosis, hyperlipidemia, and long-term use of postmenopausal hormone replacement therapy. By 2024, the patient's weight gain had become a recurring issue, leading to overweight and obesity diagnoses. The patient also reported menopausal symptoms and reduced libido. The patient received health education during visits with Agatha Chaparro NP, and Nichelle Cates NP. The patient also underwent lab requisition at [facility] and a scan at [facility]. Major depressive disorder, recurrent episodes Medical History Verified * Medications: T akingSpravato (84 MG Dose) 28 MG/DEVICE Solution Therapy Pack 3 sprays in each nostril Nasally , Notes: (Ordered through Inventory)Spravato (84 MG [...] PACKET , Notes to Pharmacist: *Reorder from [facility] for eRx and Interaction Alerts*Synthroid 88 MCG Tablet 1 tablet in the morning on an empty stomach Oral daily metFORMIN HCl 500 MG Tablet 1 tablet with a meal Oral daily LORazepam 0.5 MG Tablet 1 tablet Oral 3 times a day As needed, Notes to Pharmacist: Lindsay,UnavailablebuPROPion HCl ER (SR) 200 MG Tablet Extended Release 12 Hour 1 tablet in the morning Orally Once a day Auvelity 45-105 MG Tablet Extended Release 1 tablet Oral twice a day Amphetamine-Dextroamphetamine 10 MG Tablet 1 tablet in the morning Orally once a day Amphetamine-Dextroamphet ER 25 MG Capsule Extended Release 24 Hour 1 capsule every morning Orally Once a day Medication List reviewed and reconciled with the patientTaking Spravato (84 MG Dose) 28 MG/DEVICE Solution Therapy Pack 3 sprays in each nostril Nasally , Notes: (Ordered through Inventory)Taking Spravato (84 [...] PACKET , Notes to Pharmacist: *Reorder from [facility] for eRx and Interaction Alerts*Taking Synthroid 88 MCG Tablet 1 tablet in the morning on an empty stomach Oral daily Taking metFORMIN HCl 500 MG Tablet 1 tablet with a meal Oral daily Taking LORazepam 0.5 MG Tablet 1 tablet Oral 3 times a day As needed, Notes to Pharmacist: F419,UnavailableTaking buPROPion HCl ER (SR) 200 MG Tablet Extended Release 12 Hour 1 tablet in the morning Orally Once a day Taking Auvelity 45-105 MG Tablet Extended Release 1 tablet Oral twice a day Taking Amphetamine-Dextroamphetamine 10 MG Tablet 1 tablet in the morning Orally once a day Taking Amphetamine-Dextroamphet ER 25 MG Capsule Extended Release 24 Hour 1 capsule every morning Orally Once a day Medication List reviewed and reconciled with the patient * Allergies: B doron Aspirin: Allergy - Onset Date 08/08/2023yesAllergies Verified. Objective: * Vitals: B P: 106/68 mm Hg,129/69 mm Hg,110/62 mm Hg,105/54mm Hg, HR: 77 /min,75 /min,72 /min,73/min, Oxygen sat %: 92 %,98 %,97 %,97%, Ht: 66.00 in, Ht-cm: 167.64 cm. Assessment: * Assessment: 1. M ajor depressive disorder, recurrent severe without psychotic features - F33.2 (Primary)? Plan: * Treatment: * Procedure Codes: G 2083 PROVISION OF GREATER THAN 56 MG ESKETAMINE NASAL SELF-ADMINISTRATION, INCLUDES 2 HOURS POST-ADMINISTRATION OBSERVATION G2083 * Follow Up: 04/20/24 (Reason: Spravato Follow Up) Billing Information: * Procedure Codes: G2083 PROVISION OF GREATER THAN 56 MG ESKETAMINE NASAL SELF-ADMINISTRATION, INCLUDES 2 HOURS POST-ADMINISTRATION OBSERVATION G2083. * Electronic signature of Medardo Wynn MD on 02/18/2025 at 10:22 AM ANESTHESIOLOGY FELLOW Sign off status: Pending * Provider: Radha WYNN MD Date: 04/15/2024 Generated for Alicia alonso/Audrey/Maranda on: 04/20/2024 10:22 AM ANESTHESIOLOGY FELLOW
--- OUTSIDE RECORDS SUMMARY | 2025-02-18 02:45 | XMS_ITS ---
Author Organization [facility] [place] Address [address] [facility] [address] [place] [address] Care Team Providers Care Manufacturers Service Representative Name Role Phone HEIDY MOSELEY-Duc, STEWART Primary Care Provide r Unavailable Dannie Munoz Unavailable [phone] Avila Wynn Unavailable [phone] REASON FOR VISIT Spravato Follow Up Medications Medication SIG (Take, Route, Frequency, Duration) Notes Start Date End Date Status Amphetamine-Dextroam phetamine 10 MG Tablet 1 tablet in the morning Orally once a day; Duration: 30 days 02/04/2025 Active Spravato (84 MG Dose) 28 MG/DEVICE Solution Therapy Pack 3 sprays in each nostril Nasally twice a week Active buPROPion HCl ER (SR) 200 MG Tablet Extended Release 12 Hour 1 tablet in the morning Orally Once a day; Duration: 30 days 02/18/2025 Active Auvelity 45-105 MG Tablet Extended Release 1 tablet Oral twice a day; Duration: 30 days *Reorder from [employer] for eRx and Interaction Alerts* 02/18/2025 Active metFORMIN HCl 500 MG Tablet 1 tablet with a meal Oral daily 08/08/2023 Active Synthroid 88 MCG Tablet 1 tablet in the morning on an empty stomach Oral daily 08/08/2023 Active LORazepam 0.5 MG Tablet 1 tablet Oral 3 times a day; Duration: 6 days As needed F419,Unavailable Active Amphetamine-Dextroam phet ER 25 MG Capsule Extended Release 24 Hour 1 capsule every morning Orally Once a day; Duration: 30 days 02/18/2025 Active ESTRADIOL 0.5 MG/0.5 GRAM (0.1 %) TRANSDERMAL GEL PACKET *Reorder from [employer] for eRx and Interaction Alerts* 08/08/2023 Active Prometrium 200 MG Capsule 1 capsule at bedtime Orally Once a day Active Social History Tobacco Use: Social History Observation Description Date Details (start date - stop date) Never Smoker NA - NA Sex Assigned At : Social History Observation Description Sex Assigned At Female Social History Miscellaneous: Social Info Question Answer Notes Advance Care Planning Are you your own decision-maker Yes Do you have Power of Pilot Fuel Engineer for Health or Medi vic? Yes Do you have a power of deputy county attorney for health? Yes Do you have power of deputy county attorney for Medical ? Yes If yes, then please bring the POA paperwork so that we can upload it. 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 Marital status: Single Children: Has two children Vital Signs Blood pressure systolic 122 mm Hg 02/19/20 25 Blood pressure diastolic 74 mm Hg 025 Heart Rate 87 /min 02/18/2025 Height 66.00 in 02/18/2025 Weight 124 lbs 02/18/2025 BMI 20.01 kg/m2 02/18/2025 Height-cm 167.64 cm 02/18/2025 Weight-kg 56.25 kg 02/18/2025 Encounters Encounter Location Date Provider Diagnosis [facility] [place] [facility] [address] [facility] [address] [place] [address] 02/18/2025 Avila Wynn Major depressive disorder, recurrent, moderate F33.1 ; Attention-deficit hyperactivity disorder, combined type F90.2 ; Other fatigue R53.83 and Sleep apnea, unspecified G47.30 Assessments Encounter Date Diagnosis (ICD Code) Assessment Notes Treatment Notes Treatment Clinical Notes Section Notes 02/18/2025 Major depressive disorder, recurrent, moderate (ICD-10 - F33.1) Persistent symptoms of depression, low motivation, emotional flatness, and inability to enjoy daily activities. Recent improvement noted after last two treatments, with increased energy and clarity. History of multiple unsuccessful medication trials; Abilify has provided the longest period of benefit. Ongoing treatment since 2020. - Decrease Spravato frequency to once a week. - Continue Abilify 45 mg twice daily. - Continue bupropion 200 mg once daily. - Discussed possible future adjustment of bupropion. - Continue Prometrium 200 mg capsule daily. - Continue estradiol daily. - Continue Synthroid 88 mcg. - Continue Metformin 500 mg daily. - Continue Lorazepam 0.5 mg as needed. - Refill Adderall as needed. 02/18/2025 Attention-deficit hyperactivity disorder, combined type (ICD-10 - F90.2) 02/18/2025 Other fatigue (ICD-10 - R53.83) Persistent excessive sleepiness and brain fog reported by the patient. Improvement in energy and clarity noted after recent treatments, but not consistent. 02/18/2025 Sleep apnea, unspecified (ICD-10 - G47.30) Plan Of Treatment Medication Medication Name Sig Start Date Stop Date Notes buPROPion HCl ER (SR) 200 MG Tablet Extended Release 12 Hour 1 tablet in the morning Orally Once a day; Duration: 30 days 02/18/2025 Auvelity 45-105 MG Tablet Extended Release 1 tablet Oral twice a day; Duration: 30 days 02/18/2025 *Reorder from [facility] an for eRx and Interaction Alerts* Amphetamine-Dextroamph et ER 25 MG Capsule Extended Release 24 Hour 1 capsule every morning Orally Once a day; Duration: 30 days 02/18/2025 Next Appt Details Follow Up: 4 Weeks, Not disc ussed, Reason: Provider Name:Avila Wynn , 02/19/2025 08:00:00 AM, [address] [facility], [address], [address], Provider Name:Avila Wynn , 02/25/2025 08:00:00 AM, [address], [facility] [address], [place], [address], Provider Name:Avila Wynn , 03/04/2025 08:00:00 AM, [address], [facility] [address], [place], [address], Provider Name:Avila Wynn , 03/11/2025 08:00:00 AM, [address], [facility] [address], [place], [address], Provider Name:Avila Wynn , 03/18/2025 10:15:00 AM, [address], [facility] [address], [place], [address], History and Physical Notes * HPI (History of Present Illness) Category Sub-Category Detail Notes Category Not es History of Presenting Problem Depression screening done Nelida Cuecna, a 49-year-old female, presented for a chronic condition follow-up focused on her ongoing depression, low motivation, and persistent fatigue. She described continued struggles with motivation and emotional flatness, noting that she is still unable to enjoy things every day and experiences ongoing depressive symptoms. Despite these challenges, she reported a significant improvement following her last two treatments, with a couple of days where she felt energized, clear-headed, and did not need to nap-an experience she had not felt in years. During these periods of improvement, she also felt less emotional and more cheerful. Her journey with depression has involved multiple medication trials, including SSRIs and other agents such as Trintellix, Vraylar, and Rexulti, which either failed to provide relief or caused intolerable side effects like nausea, motion sickness, and even suicidal thoughts. She emphasized that Abilify has been the most effective medication for her, maintaining benefit for about a year before symptoms recurred. She has been engaged in ongoing treatment since 2020, striving to find a regimen that offers consistent relief. In addition to her mood symptoms, Nelida described persistent fatigue and excessive sleepiness, often experiencing brain fog that interferes with her daily functioning. She highlighted that the improvement in energy and clarity after recent treatments was particularly meaningful, though not yet consistent. These physical and emotional challenges continue to impact her quality of life, and she remains hopeful for further progress as her treatment plan evolves. Depression screening PHQ-9 Little interest or pleasure in doing things: Nearly every day Feeling down, depressed, or hopeless: Mo re than half the days Trouble falling or staying a sleep, or sleeping too much: More than half the days Feeling tired or having little energy: N early every day Poor appetite or overeating: Several day s Feeling bad about yourself o r that you are a failure, or have let yourself or your family down: Several days Trouble concentrating on thi ngs, such as reading the newspaper or watching television: More than half the days Moving or speaking so slowly that other people could have noticed; or the opposite, being so fidgety or restless that you have been moving around a lot more than usual: Several days Thoughts that you would be b hermilo off or of hurting yourself in some way: Not at all Total Score: 23 Intervention Depression Screening Findings: Martita singh Follow-Up for Depression: [facility] health care management, Psychiatric follow-up Suicide Risk Assessment Performed: __ da te Depression Screening CARLA-7 (2018 Edition) Feelin g nervous, anxious, or on edge: Several days Not being able to stop or control worryi ng: Not at all Worrying too much about different things : Not at all Trouble relaxing: Not at all Being so restless that it is hard to sit still: Not at all Becoming easily annoyed or irritable: Se veral days Feeling afraid as if something awful to ht happen: Not at all Philip Depression Inventory which describe s you best in terms of this past week 1 In the past one week which term best describe you: 2 I am blue or sad all the time and I can't snap out of it. 2 In the past one week which term best describe you: 2 I feel I have nothing to look forward to. 3 In the past one week which term best describe you: 2 I feel I have accomplished very little that is worthwhile or that means anything. 4 In the past one week which term best describe you: 3 I am dissatisfied or bored with everything. 5 In the past one week which term best describe you: 3 I feel guilty all of the time 6 In the past one week which term best d escribe you: 2 I expect to be punished. 7 In the past one week which term best describe you: 1 I am disappointed in myself. 8 In the past one week which term best describe you: 2 I blame myself all the time for my faults. 9 In the past one week which term best describe you: 0 I don't have any thoughts of killing myself. 10 In the past one week which term best describe you: 2 I cry all the time now. 11 In the past one week whic h term best describe you: 1 I am slightly more irritated now than usual. 12 In the past one week whic h term best describe you: 2 I have lost most of my interest in other people 13 In the past one week whic h term best describe you: 2 I have greater difficulty in making decisions more than I used to. 14 In the past one week whic h term best describe you: 2 I feel there are permanent changes in my appearance that make me look unattractive. 15 In the past one week whic h term best describe you: 2 I have to push myself very hard to do anything. 16 In the past one week whic h term best describe you: 1 I don't sleep as well as I used to. 17 In the past one week whic h term best describe you: 2 I get tired from doing almost anything 18 In the past one week whic h term best describe you: 1 My appetite is not as good as It used to be. 19 In the past one week whic h term best describe you: 0 I haven't lost much weight, if any, lately. 20 In the past one week whic h term best describe you: 1 I am worried about physical problems like aches, pain, upset stomach or constipation 21 In the past one week whic h term best describe you: 2 I have almost no interest in sex. Hart-Suicide Severity Rating Scale Suicide Risk (CSRS-screener) in the past one month Have you wished you were or wished you could go to sleep and not wake up?: No in the past one month Have y ou actually had any thoughts of killing yourself?: No Have you ever done anything, started to do anything, or prepared to do anything to end your life?: No Examination Category Sub-Category Detail Notes Category Not es Psychiatry Appearance: well-groomed, well-nourished , ... Attitude: cooperative Psychomotor activity: within normal rang e Attention: good Degree of awareness of surroundings: wit hin normal limits Orientation: awake, alert and shellie ented x 3 Affect / mood: appropriate, full ra nge Speech / language: appropriate pitch/mo dulation, clear and coherent, normal rate, volume, and articulation (RVR), proper grammar used Insight: good Judgement: good Thought process: intact Thought content: appropriate Perceptual disorders: no perceptual diso rder noted Suicidal ideation: none Intellectual functioning: no impairment noted Memory status: no impairment noted Delusions: no Hallucinations: no Progress Notes * DORCAS CUENCAOB:05/1975 (49 yo F)Acc No.[id number]:02/18/2025 Esketamine Follow up Patient: NELIDA GARRIDO Provider: Radha WYNN MD :1975 A ge:49 Y S ex:Female Date:02/18/2025 [id number] Pcp:STEWART Jacobson NON LICENSED OPERATOR-C Subjective: * Chief Complaints: * S pravato Follow Up * HPI: D epression Screening: CARLA-7 (2018 Edition) F eeling nervous, anxious, or on edge S everal days N ot being able to stop or control worrying?Not at all W orrying too much about different things N ot at all T rouble relaxing N ot at all B eing so restless that it is hard to sit still N ot at all B ecoming easily annoyed or irritable S everal days F eeling afraid as if something awful might happen N ot at all B keegan Depression Inventory: which describes you best in terms of this past week 1 In the past one week which term best describe you 2 I am blue or sad all the time and I can't snap out of it. 2 In the past one week which term best describe you 2 I feel I have nothing to look forward to. 3 In the past one week which term best describe you 2 I feel I have accomplished very little that is worthwhile or that means anything. 4 In the past one week which term best describe you 3 I am dissatisfied or bored with everything. 5 In the past one week which term best describe you 3 I feel guilty all of the time 6 In the past one week which term best describe you 2 I expect to be punished. 7 In the past one week which term best describe you 1 I am disappointed in myself. 8 In the past one week which term best describe you 2 I blame myself all the time for my faults. 9 In the past one week which term best describe you 0 I don't have any thoughts of killing myself. 1 0 In the past one week which term best describe you 2 I cry all the time now. 1 1 In the past one week which term best describe you 1 I am slightly more irritated now than usual. 1 2 In the past one week which term best describe you 2 I have lost most of my interest in other people 1 3 In the past one week which term best describe you 2 I have greater difficulty in making decisions more than I used to. 1 4 In the past one week which term best describe you 2 I feel there are permanent changes in my appearance that make me look unattractive. 1 5 In the past one week which term best describe you 2 I have to push myself very hard to do anything. 1 6 In the past one week which term best describe you 1 I don't sleep as well as I used to. 1 7 In the past one week which term best describe you 2 I get tired from doing almost anything 1 8 In the past one week which term best describe you 1 My appetite is not as good as It used to be. 1 9 In the past one week which term best describe you 0 I haven't lost much weight, if any, lately. 2 0 In the past one week which term best describe you 1 I am worried about physical problems like aches, pain, upset stomach or constipation 2 1 In the past one week which term best describe you 2 I have almost no interest in sex. C [place]-Suicide Severity Rating Scale: Suicide Risk (CSRS-screener) i n the past one month Have you wished you were or wished you could go to sleep and not wake up? N o i n the past one month Have you actually had any thoughts of killing yourself? N o H ave you ever done anything, started to do anything, or prepared to do anything to end your life? N o D epression screening: PHQ-9 L ittle interest or pleasure in doing things?Nearly every day F eeling down, depressed, or hopeless M ore than half the days T rouble falling or staying asleep, or sleeping too much M ore than half the days F eeling tired or having little energy N early every day P oor appetite or overeating S ever F eeling bad about yourself or that you are a failure, or have let yourself or your family down S ever T rouble concentrating on things, such as reading the newspaper or watching television M ore than half the days M oving or speaking so slowly that other people could have noticed; or the opposite, being so fidgety or restless that you have been moving around a lot more than usual S ever T houghts that you would be better off or of hurting yourself in some way N ot at all T otal Score 2 3 Intervention D epression Screening Findings P ositve F ollow-Up for Depression [facility] health care management, Psychiatric follow-up S uicide Risk Assessment Performed _ _ date H istory of Presenting Problem: Depression screening done Nelida Cuenca, a 49-year-old female, presented for a chronic condition follow-up focused on her ongoing depression, low motivation, and persistent fatigue. She described continued struggles with motivation and emotional flatness, noting that she is still unable to enjoy things every day and experiences ongoing depressive symptoms. Despite these challenges, she reported a significant improvement following her last two treatments, with a couple of days where she felt energized, clear-headed, and did not need to nap-an experience she had not felt in years. During these periods of improvement, she also felt less emotional and more cheerful. Her journey with depression has involved multiple medication trials, including SSRIs and other agents such as Trintellix, Vraylar, and Rexulti, which either failed to provide relief or caused intolerable side effects like nausea, motion sickness, and even suicidal thoughts. She emphasized that Abilify has been the most effective medication for her, maintaining benefit for about a year before symptoms recurred. She has been engaged in ongoing treatment since 2020, striving to find a regimen that offers consistent relief. In addition to her mood symptoms, Nelida described persistent fatigue and excessive sleepiness, often experiencing brain fog that interferes with her daily functioning. She highlighted that the improvement in energy and clarity after recent treatments was particularly meaningful, though not yet consistent. These physical and emotional challenges continue to impact her quality of life, and she remains hopeful for further progress as her treatment plan evolves. * Social History: T obacco Use: T obacco Control (Standard) T obacco use: N onsmoker M igrated Social History: M igrated Social History: Alcohol Intake: None 01/31/2023,Tobacco Years: Never smoker 06/22/2021. M iscellaneous: A dvance Care Planning A re you your own decision-maker Y es D o you have Power of Pilot Fuel Engineer for Health or Medical? Y es D o you have a power of deputy county attorney for health??Yes D o you have power of deputy county attorney for Medical ??Yes I f yes, then please bring the POA paperwork so that we can upload it. Y es A dvance Directive F ULL CODE S ocial History Verified. 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 * Medications: T akingSpravato (84 MG Dose) 28 MG/DEVICE Solution Therapy Pack 3 sprays in each nostril Nasally twice a week Prometrium 200 MG Capsule 1 capsule at bedtime Orally Once a day ESTRADIOL 0.5 MG/0.5 GRAM (0.1 %) TRANSDERMAL GEL PACKET , Notes to Pharmacist: *Reorder from [employer] for eRx and Interaction Alerts*Synthroid 88 MCG Tablet 1 tablet in the morning on an empty stomach Oral daily metFORMIN HCl 500 MG Tablet 1 tablet with a meal Oral daily LORazepam 0.5 MG Tablet 1 tablet Oral 3 times a day As needed, Notes to Pharmacist: F419,UnavailablebuPROPion HCl ER (SR) 200 MG Tablet Extended Release 12 Hour 1 tablet in the morning Orally Once a day Auvelity 45-105 MG Tablet Extended Release 1 tablet Oral twice a day Amphetamine-Dextroamphetamine 10 MG Tablet 1 tablet in the morning Orally once a day Amphetamine-Dextroamphet ER 25 MG Capsule Extended Release 24 Hour 1 capsule every morning Orally Once a day Taking Spravato (84 MG Dose) 28 MG/DEVICE Solution Therapy Pack 3 sprays in each nostril Nasally twice a week Taking Prometrium 200 MG Capsule 1 capsule at bedtime Orally Once a day Taking ESTRADIOL 0.5 MG/0.5 GRAM (0.1 %) TRANSDERMAL GEL PACKET , Notes to Pharmacist: *Reorder from [employer] for eRx and Interaction Alerts*Taking Synthroid 88 [...] capsule every morning Orally Once a day DiscontinuedSpravato (84 MG Dose) 28 MG/DEVICE Solution Therapy Pack 3 sprays in each nostril Nasally , Notes: (Ordered through Inventory)Spravato (84 MG Dose) 28 MG/DEVICE Solution Therapy Pack 3 sprays in each nostril Nasally twice a week , Notes: (Ordered through Inventory)Spravato (84 MG Dose) 28 MG/DEVICE Solution Therapy Pack 3 sprays in each nostril Nasally twice a week , Notes: (Ordered through Inventory)Medication List reviewed and reconciled with the patientDiscontinued Spravato (84 MG Dose) 28 MG/DEVICE Solution Therapy Pack 3 sprays in each nostril Nasally , Notes: (Ordered through Inventory)Discontinued Spravato (84 MG Dose) 28 MG/DEVICE Solution Therapy Pack 3 sprays in each nostril Nasally twice a week , Notes: (Ordered through Inventory)Discontinued Spravato (84 MG Dose) 28 MG/DEVICE Solution Therapy Pack 3 sprays in each nostril Nasally twice a week , Notes: (Ordered through Inventory)Medication List reviewed and reconciled with the patient Objective: * Vitals: B P:122/74mm Hg, HR:87/min, Wt:124lbs, Wt-k.25 kg, Ht: 66.00 in, Ht-cm: 167.64 cm, BMI:20.01Index, Body Surface Area: 1.62. * Examination: P sychiatry: Appearance: w ell-groomed, well-nourished, ... Affect / mood: a ppropriate, full range. Attention: g ood. Attitude: c ooperative. Suicidal ideation: n one. Memory status: n o impairment noted. Degree of awareness of surroundings: w ithin normal limits.? Delusions: n o. Hallucinations: n o. Insight: g ood. Intellectual functioning: n o impairment noted. Judgement: g ood. Orientation: a wake, alert and oriented x 3. Perceptual disorders: n o perceptual disorder noted. Psychomotor activity: w ithin normal range. Speech / language: a ppropriate pitch/modulation, clear and coherent, normal rate, volume, and articulation (RVR), proper grammar used. Thought content: a ppropriate. Thought process: i ntact. Assessment: * Assessment: 1. M ajor depressive disorder, recurrent, moderate - F33.1 (Primary) 2 . A ttention-deficit hyperactivity disorder, combined type - F90.2 3 . O ther fatigue - R53.83 4 . S leep apnea, unspecified - G47.30 Plan: * Treatment: 2. A ttention-deficit hyperactivity disorder, combined type Continue Amphetamine-Dextroamphet ER Capsule Extended Release 24 Hour, 25 MG, 1 capsule every morning, Orally, Once a day, 30 days, 30 Capsule, Refills 0. 3. O ther fatigue Clinical Notes: Persistent excessive sleepiness and brain fog reported by the patient. Improvement in energy and clarity noted after recent treatments, but not consistent. * Procedure Codes: 9 6127 BEHAV ASSMT W/SCORE & DOCD/STAND [id number] TOBACCO NON-USER * Preventive Medicine: Screenings: D epression screening Have you had a recent depression screening? Y es * Follow Up: 4 Weeks, Not discussed Billing Information: * Visit Code: 07695 OFFICE OUTPATIENT VISIT 25 MINUTES DETAILED HISTORY AND EXAM/MODERATE MEDICAL DECISION MAKING. * Procedure Codes: 24243 BEHAV ASSMT W/SCORE & DOCD/STAND INSTRUMENT. 1036F TOBACCO NON-USER. * L TRIM OPERATOR Sign off status: Completed true * Provider: Radha WYNN MD Date: 04/20/2024 Generated for Alicia alonso/Audrey/Susyitting on: 04/20/2024 10:22 AM SHELL TRIM OPERATOR
[2025-02-18 10:05] VITALS: BP 117/63; PULSE 73; RESP 18; TEMP 36.9; O2SAT 100
--- OUTSIDE RECORDS SUMMARY | 2025-02-18 10:22 | XMS_ITS | Encounter Summary ---
[facility] Organization [facility] Address 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
--- OUTSIDE RECORDS SUMMARY | 2025-02-18 10:22 | XMS_ITS | Encounter Summary ---
Author Organization [facility] Address [address] [place] [address] Care Team Providers Care Knife Glazer Name Role Phone Sola Shah RN Unavailable Unavailable Arina William ENVIRONMENTAL ENGINEERING PROFESSOR-[facility] Primary Care Provider + Reason for Visit * Reason Onset Date Comments MEDICATION REFILL 12/07/2018 Refill Request Encounter Details Date Type Department Care Team (Late st Contact Info) Description 12/07/2018 Refill [facility] General Internal [facility] [address] [facility] [address] [place] [address] Nina Chew MD [address] [facility] [place] [address] MEDICATION REFILL (Refill Request ) Social History [...] on filedocumented in this encounter Care Teams Knife Glazer Relationship Specialty Start Date End Date Arina William, TRACI-TRUCK ENGINE ASSEMBLER PCP - General 12/07/18 Sola Shah RN Registered Nurse 05/03/17 documented as of this encounter
--- OUTSIDE RECORDS SUMMARY | 2025-02-18 10:22 | XMS_ITS | Encounter Summary ---
Author Organization [facility] Address 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 Gender Identity Not on file Sexual Orientation [...] INTE RFACE SYSTEM 01/16/2007 7:50 PM CDT us Sarah Cole MD BODY FLUIDS AND STOOLS Edite d Performing Organization Address [facility] Phone Number INTERFACE SYSTEM Refer to [...] MD HEMATOLOGY ORDERABLES Edited Performing Organization Address [facility] Phone Number INTERFACE SYSTEM Refer to [...] MD HEMATOLOGY ORDERABLES Edited Performing Organization Address City/[facility] Co de Phone Number INTERFACE SYSTEM [...] and non- Americans is available on the [facility] Intranet at: [email or web address] Select: Lab Policies and Procedures Select: Reference Ranges - GFR 01/16/2007 7:42 PM CDT us Sarah Cole MD CHEMISTRY ORDERABLES Edited Performing Organization Address [facility]/ZIP Co de Phone Number INTERFACE SYSTEM Refer [...] MD URINE ORDERABLES Edited Performing Organization Address [facility] Phone Number INTERFACE SYSTEM Refer to [...] MD URINE ORDERABLES Edited Performing Organization Address [facility] Phone Number INTERFACE SYSTEM Refer to clinic/hospital department documented in this encounter Visit Diagnoses Diagnosis Threatened premature labor, antepartum(644.03)- Primary Threatened premature labor, antepartum documented in this encounter Care Teams Ophthalmic Tech Relationship Specialty Start Date End Date Genevieve Newman APN PCP - General NURSE PRACTITIONER 07/18/20 documented as of this encounter
--- OUTSIDE RECORDS SUMMARY | 2025-02-18 10:22 | XMS_ITS | Patient Health Record ---
Author Organization [facility] As [employer] [facility] Address [address] [place] [address] Care Team Providers Care Osteologist Name Role Phone HEIDY SANABRIA, STEWART Primary Care Provide r Unavailable Dannie Munoz Unavailable [phone] Avila Stafford Unavailable [phone] Adolfo Thomas Unavailable [phone] Allergies Allergen (clinical drug ingredient) Drug/Non Drug Allergy documented on EMR Reaction Allergy Type Onset Date Status aspirin Candido Aspirin Unknown Drug Allergy 08/08/2023 Ac tive Results Component Value Reference Range Notes UDT Reviewed date:11/27/2024 09:35:13 AM Interpretation: Performing Lab: Notes/Report: Amphetamine (AMP) P 0 - 1000 ng/ml Buprenorphine (BUP) N 0 - 10 ng/ml Oxazepam (BZO) N 0 - 300 ng/ml Cocaine (DAILY) N 0 - 300 ng/ml Methamphetamine (mAMP) N 0 - 300 ng/ml Methylenedioxymethamphetamine (MDMA) N 0 - 500 ng/ml Morphine (MOP) N 0 - 25 ng/ml Methadone (MTD) N 0 - 300 ng/ml Oxycodone (OXY) N 0 - 300 ng/ml THC N 0 - 50 ng/ml x N 0 - 1000 ng/ml x N 0 - 1000 ng/ml x N 0 - 300 ng/ml x N 0 - 300 ng/ml UDT Reviewed date:07/30/2024 03:57:54 PM Interpretation: Performing Lab: Notes/Report: Amphetamine (AMP) P 0 - 1000 ng/ml Buprenorphine (BUP) N 0 - 10 ng/ml Oxazepam (BZO) N 0 - 300 ng/ml Cocaine (DAILY) N 0 - 300 ng/ml Methamphetamine (mAMP) N 0 - 300 ng/ml Methylenedioxymethamphetamine (MDMA) N 0 - 500 ng/ml Morphine (MOP) N 0 - 25 ng/ml Methadone (MTD) N 0 - 300 ng/ml Oxycodone (OXY) N 0 - 300 ng/ml THC N 0 - 50 ng/ml x N 0 - 1000 ng/ml x N 0 - 1000 ng/ml x N 0 - 300 ng/ml x N 0 - 300 ng/ml UDT Reviewed date:01/10/2025 03:38:29 PM Interpretation: Performing Lab: Notes/Report: Amphetamine (AMP) p 0 - 1000 ng/ml Buprenorphine (BUP) n 0 - 10 ng/ml Oxazepam (BZO) n 0 - 300 ng/ml Cocaine (DAILY) n 0 - 300 ng/ml Methamphetamine (mAMP) n 0 - 300 ng/ml Methylenedioxymethamphetamine (MDMA) n 0 - 500 ng/ml Morphine (MOP) n 0 - 25 ng/ml Methadone (MTD) n 0 - 300 ng/ml Oxycodone (OXY) n 0 - 300 ng/ml THC n 0 - 50 ng/ml x n 0 - 1000 ng/ml x n 0 - 1000 ng/ml x n 0 - 300 ng/ml x n 0 - 300 ng/ml x n 0 - 300 ng/ml UDT Reviewed date:12/10/2024 12:22:54 PM Interpretation: Performing Lab: Notes/Report: Amphetamine (AMP) P 0 - 1000 ng/ml Buprenorphine (BUP) N 0 - 10 ng/ml Oxazepam (BZO) N 0 - 300 ng/ml Cocaine (DAILY) N 0 - 300 ng/ml Methamphetamine (mAMP) N 0 - 300 ng/ml Methylenedioxymethamphetamine (MDMA) N 0 - 500 ng/ml Morphine (MOP) N 0 - 25 ng/ml Methadone (MTD) N 0 - 300 ng/ml Oxycodone (OXY) N 0 - 300 ng/ml THC N 0 - 50 ng/ml x N 0 - 1000 ng/ml x N 0 - 1000 ng/ml x N 0 - 300 ng/ml x N 0 - 300 ng/ml UDT Reviewed date:09/04/2024 12:59:12 PM Interpretation: Performing Lab: Notes/Report: Amphetamine (AMP) POS 0 - 1000 ng/ml Buprenorphine (BUP) NEG 0 - 10 ng/ml Oxazepam (BZO) NEG 0 - 300 ng/ml Cocaine (DAILY) NEG 0 - 300 ng/ml Methamphetamine (mAMP) NEG 0 - 300 ng/ml Methylenedioxymethamphetamine (MDMA) NEG 0 - 500 ng/ml Morphine (MOP) NEG 0 - 25 ng/ml Methadone (MTD) NEG 0 - 300 ng/ml Oxycodone (OXY) NEG 0 - 300 ng/ml THC NEG 0 - 50 ng/ml x NEG 0 - 1000 ng/ml x NEG 0 - 1000 ng/ml x NEG 0 - 300 ng/ml x NEG 0 - 300 ng/ml Reason For Referral No Information Medications Medication SIG (Take, Route, Frequency, Duration) Notes Start Date End Date Status Amphetamine-Dextroam phet ER 25 MG Capsule Extended Release 24 Hour 1 capsule every morning Orally Once a day; Duration: 30 days 02/18/2025 Active buPROPion HCl ER (SR) 200 MG Tablet Extended Release 12 Hour 1 tablet in the morning Orally Once a day; Duration: 30 days 02/18/2025 Active ESTRADIOL 0.5 MG/0.5 GRAM (0.1 %) TRANSDERMAL GEL PACKET *Reorder from [employer] for eRx and Interaction Alerts* 08/08/2023 Active Auvelity 45-105 MG Tablet Extended Release 1 tablet Oral twice a day; Duration: 30 days *Reorder from [employer] for eRx and Interaction Alerts* 02/18/2025 Active metFORMIN HCl 500 MG Tablet 1 tablet with a meal Oral daily 08/08/2023 Active Synthroid 88 MCG Tablet 1 tablet in the morning on an empty stomach Oral daily 08/08/2023 Active LORazepam 0.5 MG Tablet 1 tablet Oral 3 times a day; Duration: 6 days As needed F419,Unavailable Active Amphetamine-Dextroam phetamine 10 MG Tablet 1 tablet in the morning Orally once a day; Duration: 30 days 02/04/2025 Active Prometrium 200 MG Capsule 1 capsule at bedtime Orally Once a day Active Spravato (84 MG Dose) 28 MG/DEVICE Solution Therapy Pack 3 sprays in each nostril Nasally twice a week Active Immunizations Vaccine Route Administration Date Status [facility] 1st dose Unknown 04/29/2020 Ad [...] decision-maker Yes Do you have Power of Shoe Turner for Health or Medi vic? Yes Do you have a power of commercial real estate attorney for health? Yes Do you have power of commercial real estate attorney for Medical ? 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2) Active confirmed Problem Sleep apnea (20381590) Sleep apnea, unspecified (G47.30) Active confirmed Problem Fatigue (78031872) Other fatigue (R53.83) Active confirmed Problem Severe recurrent major depression without psychotic features (42792821) Severe episode of recurrent major depressive disorder, without psychotic features (F33.2) Active confirmed Vital Signs Heart Rate 87 /min 02/18/2025 Oximetry 97 % 02/13/2025 Height-cm 167.64 cm 02/18/2025 Blood pressure diastolic 74 mm Hg 02/18/2025 Weight-kg 56.25 kg 02/18/2025 Height 66.00 in 02/18/2025 Blood pressure systolic 122 mm Hg 02/18/2025 Weight 124 lbs 02/18/2025 BMI 20.01 kg/m2 02/18/2025 Encounters Encounter Location Date Provider Diagnosis [place] [id number] [address] 02/11/2025 Avila Rivera Major depressive disorder, recurrent severe without psychotic features F33.2 [facility] [address] [address] 02/13/2025 Avila Rivera Major depressive disorder, recurrent severe without psychotic features F33.2 [facility] [address] [address] 07/30/2024 Dannie Munzo Encounter for screen ing for depression Z13.31 ; Attention-deficit hyperactivity disorder, combined type F90.2 ; Major depressive disorder, recurrent, mild F33.0 and Encounter for screening for cardiovascular disorders Z13.6 [facility] [address] [address] 09/03/2024 Dannie Munoz Encounter for screen ing for cardiovascular disorders Z13.6 ; Negative depression screening Z13.31 ; Attention-deficit hyperactivity disorder, combined type F90.2 ; Encounter for screening for depression Z13.31 and Major depressive disorder, recurrent, mild F33.0 [place] [address] [address] 10/01/2024 Dannie Munoz Encounter for screen ing for cardiovascular disorders Z13.6 ; Negative depression screening Z13.31 ; Attention-deficit hyperactivity disorder, combined type F90.2 ; Encounter for screening for depression Z13.31 and Major depressive disorder, recurrent, mild F33.0 [facility] [address] [address] 10/29/2024 Dannie Munoz Attention-deficit hyperactivity disorder, combined type F90.2 ; Major depressive disorder, recurrent, mild F33.0 and Other fatigue R53.83 [facility] [place] [address] [address] 11/27/2024 Adolfojessica Tidwellb Attention-deficit hyperactivity disorder, combined type F90.2 and Severe episode of recurrent major depressive disorder, without psychotic features F33.2 [facility], [facility] [address] [place] [address] 12/10/2024 Dannie Munoz Major depressive disorder, recurrent, mild F33.0 ; Attention-deficit hyperactivity disorder, combined type F90.2 and Other fatigue R53.83 [facility] [address] [place] [address] 12/24/2024 Dannie Munoz Major depressive disorder, recurrent, mild F33.0 ; Attention-deficit hyperactivity disorder, combined type F90.2 ; Other fatigue R53.83 and Sleep apnea, unspecified G47.30 [facility] [address] [place] [address] 01/10/2025 Avila Rivera Attention-deficit hyperactivity disorder, combined type F90.2 ; Major depressive disorder, recurrent, moderate F33.1 ; Other fatigue R53.83 and Sleep apnea, unspecified G47.30 [facility] [employer], [facility] [address] [place] [address] 01/18/2025 Avila Rivera Major depressive disorder, recurrent severe without psychotic features F33.2 [facility] [employer], [facility] [address] [place] [address] 01/21/2025 Avila Rivera Major depressive disorder, recurrent severe without psychotic features F33.2 [facility] [place] [address] [place] [address] 01/25/2025 Avila Rviera Major depressive disorder, recurrent severe without psychotic features F33.2 [facility] [employer], [facility] [address] [place] [address] 01/28/2025 Avila Rivera Major depressive disorder, recurrent severe without psychotic features F33.2 [facility], [facility] [address] [place] [address] 01/30/2025 Avila Rivera Major depressive disorder, recurrent severe without psychotic features F33.2 [facility] [employer], [place] [address] [place] [address] 02/04/2025 Vaila Rivera Major depressive disorder, recurrent severe without psychotic features F33.2 [facility], [facility] [address] [place] [address] 02/06/2025 Avila Rivera Major depressive disorder, recurrent severe without psychotic features F33.2 [facility], [facility] [address] [place] [address] 02/18/2025 Avila Rivera Major depressive disorder, recurrent, moderate F33.1 ; Attention-deficit hyperactivity disorder, combined type F90.2 ; Other fatigue R53.83 and Sleep apnea, unspecified G47.30 [facility], [facility] [address] [place] [address] 07/05/2024 Dannie Munoz Major depressive disorder, recurrent, mild F33.0 [facility], [facility] [address] [place] [address] 08/01/2024 Dannie Munoz [facility], [facility] [address] [place] [address] 08/10/2024 Dannie Munoz [facility], [facility] [address] [place] [address] 09/18/2024 Dannie Munoz [facility], [facility] [address] [place] [address] 10/29/2024 Dannie Palaciosoza [facility], [facility] [address] [place] [address] 01/15/2025 Dannie Munoz [facility], [facility] [address] [place] [address] 01/16/2025 Dannie Munoz [facility], [facility] [address] [place] [address] 02/12/2025 Dannie Munoz Attention-deficit hyperactivity disorder, combined type F90.2 [facility], [facility] [address] [place] [address] 03/10/2024 Dannie Munoz Attention-deficit hyperactivity disorder, combined type F90.2 [facility], [facility] [address] [place] [address] 05/10/2024 Dannie Munoz Attention-deficit hyperactivity disorder, combined type F90.2 [facility], [facility] [address] [place] [address] 06/06/2024 Dannie Munoz [facility], [facility] [address] [place] [address] 06/06/2024 Dannie Munoz Attention-deficit hyperactivity disorder, combined type F90.2 [facility], [facility] [address] [place] [address] 06/06/2024 Dannie Munoz [facility], [facility] [address] [place] [address] 06/06/2024 Dannie Munoz [facility], [facility] [address] [place] [address] 07/09/2024 Dannie Munoz Attention-deficit hyperactivity disorder, combined type F90.2 [facility], [facility] [address] [place] [address] 07/30/2024 Dannie Munoz [facility], [facility] [address] [place] [address] 08/02/2024 Dannie Munoz [facility], [facility] [address] [place] [address] 08/02/2024 Dannie Munoz [facility], [facility] [address] [place] [address] 08/06/2024 Dannie Munoz Attention-deficit hyperactivity disorder, combined type F90.2 and Major depressive disorder, recurrent, mild F33.0 [facility], [facility] [address] [place] [address] 08/06/2024 Dannie Munoz [facility], [facility] [address] [place] [address] 08/07/2024 Dannie Munoz Attention-deficit hyperactivity disorder, combined type F90.2 [facility], [facility] [address] [place] [address] 09/06/2024 Dannie Munoz Attention-deficit hyperactivity disorder, combined type F90.2 [facility], [facility] [address] [place] [address] 09/06/2024 Dannie Munoz Attention-deficit hyperactivity disorder, combined type F90.2 [facility], [facility] [address] [place] [address] 09/10/2024 Dannie Munoz Attention-deficit hyperactivity disorder, combined type F90.2 [facility], [facility] [address] [place] [address] 09/11/2024 Dannie Munoz Attention-deficit hyperactivity disorder, combined type F90.2 [facility], [facility] [address] [place] [address] 09/20/2024 Dannie Munoz [facility], [facility] [address] [place] [address] 11/06/2024 Dannie Munoz Attention-deficit hyperactivity disorder, combined type F90.2 [facility], [facility] [address] [place] [address] 11/27/2024 Dannie Palaciosoza [facility], [facility] [address] [place] [address] 12/03/2024 Dannie Munoz [facility], [facility] [address] [place] [address] 12/03/2024 Dannie Munoz [facility], [facility] [address] [place] [address] 12/20/2024 Dannie Munoz Attention-deficit hyperactivity disorder, combined type F90.2 [facility], [facility] [address] [place] [address] 01/10/2025 Dannie Munoz Attention-deficit hyperactivity disorder, combined type F90.2 [facility], [facility] [address] [place] [address] 01/18/2025 Dannie Munoz [facility], [facility] [address] [place] [address] 02/04/2025 Dannie Munoz Attention-deficit hyperactivity disorder, combined type F90.2 [facility], [facility] [address] [place] [address] 02/13/2025 Dannie Munoz Assessments Encounter Date Diagnosis (ICD Code) Assessment Notes Treatment Notes Treatment Clinical Notes Section Notes 03/10/2024 Attention-defici t hyperactivity disorder, combined type (ICD-10 - F90.2) 05/10/2024 Attention-defici t hyperactivity disorder, combined type (ICD-10 - F90.2) 06/06/2024 Attention-defici t hyperactivity disorder, combined type (ICD-10 - F90.2) 07/05/2024 Major depressive disorder, recurrent, mild (ICD-10 - F33.0) 07/09/2024 Attention-defici t hyperactivity disorder, combined type (ICD-10 - F90.2) 07/30/2024 Attention-defici t hyperactivity disorder, combined type (ICD-10 - F90.2) 07/30/2024 Encounter for screening for depression (ICD-10 - Z13.31) 08/06/2024 Major depressive disorder, recurrent, mild (ICD-10 - F33.0) 08/06/2024 Attention-defici t hyperactivity disorder, combined type (ICD-10 - F90.2) 08/07/2024 Attention-defici t hyperactivity disorder, combined type (ICD-10 - F90.2) 09/03/2024 Encounter for screening for cardiovascular disorders (ICD-10 - Z13.6) 09/06/2024 Attention-defici t hyperactivity disorder, combined type (ICD-10 - F90.2) 09/06/2024 Attention-defici t hyperactivity disorder, combined type (ICD-10 - F90.2) 09/10/2024 Attention-defici t hyperactivity disorder, combined type (ICD-10 - F90.2) 09/11/2024 Attention-defici t hyperactivity disorder, combined type (ICD-10 - F90.2) 10/01/2024 Encounter for screening for cardiovascular disorders (ICD-10 - Z13.6) 11/06/2024 Attention-defici t hyperactivity disorder, combined type (ICD-10 - F90.2) 11/27/2024 Attention-defici t hyperactivity disorder, combined type (ICD-10 - F90.2) 11/27/2024 Severe episode of recurrent major depressive disorder, without psychotic features (ICD-10 - F33.2) SPRAVATO is contraindicated in patients with: Aneurysmal vascular disease (including thoracic and abdominal aorta, intracranial and peripheral arterial vessels) or arteriovenous malformation No History of intracerebral hemorrhage No Hypersensitivity to Esketamine, ketamine, or any of the ingredients No UNCONTROLLED HYPERTENSION No Hypertension is not an absolute contraindication Electronic Prior Authorization was requested for Spravato (84 MG Dose) 28 MG/DEVICE Solution Therapy Pack. Provider can order medication once approval received. 12/10/2024 Major depressive disorder, recurrent, mild (ICD-10 - F33.0) 12/20/2024 Attention-defici t hyperactivity disorder, combined type (ICD-10 - F90.2) 12/24/2024 Major depressive disorder, recurrent, mild (ICD-10 - F33.0) 01/10/2025 Attention-defici t hyperactivity disorder, combined type (ICD-10 - F90.2) 01/10/2025 Major depressive disorder, recurrent, moderate (ICD-10 - F33.1) SPRAVATO can cause serious side effects, including: Sedation, dissociation, and respiratory depression. SPRAVATO may cause sleepiness (sedation), fainting, dizziness, spinning sensation, anxiety, or feeling disconnected from yourself, your thoughts, feelings, space and time (dissociation), and breathing problems (respiratory depression and respiratory arrest). Tell your healthcare provider right away if you feel like you cannot stay awake or if you feel like you are going to pass out. Your healthcare provider must monitor you for serious side effects for at least 2 hours after taking SPRAVATO. Your healthcare provider will decide when you are ready to leave the healthcare setting. Abuse and misuse. There is a risk for abuse and misuse with SPRAVATO, which may lead to physical and psychological dependence. Your healthcare provider should check you for signs of abuse, misuse, and dependence before and during treatment. Tell your healthcare provider if you have ever abused or been dependent on alcohol, prescription medicines, or street drugs. Your healthcare provider can tell you more about the differences between physical and psychological dependence in drug addiction. SPRAVATO Risk Evaluation and Mitigation Strategy (REMS). Because of the risks for sedation, dissociation, respiratory depression, and abuse and misuse, SPRAVATO is only available through a restricted program called the SPRAVATO Risk Evaluation and Mitigation Strategy (REMS) Program. SPRAVATO can only be administered at healthcare settings certified in the SPRAVATO REMS Program. Patients treated in outpatient healthcare settings (such as medical offices and clinics) must be enrolled in the program. Increased risk of suicidal thoughts and actions. Antidepressant medicines may increase suicidal thoughts and actions in some people 24 years of age and younger, especially within the first few months of treatment or when the dose is changed. SPRAVATO is not for use in children. Depression and other serious mental illnesses are the most important causes of suicidal thoughts and actions. Some people may have a higher risk of having suicidal thoughts or actions. These include people who have (or have a family history of) depression or a history of suicidal thoughts or actions. How can I watch for and try to prevent suicidal thoughts and actions in myself or a family member? Pay close attention to any changes, especially sudden changes, in mood, behavior, thoughts, or feelings, or if you develop suicidal thoughts or actions. Tell your healthcare provider right away if you have any new or sudden changes in mood, behavior, thoughts, or feelings, or if you develop suicidal thoughts or actions. Keep all follow-up visits with your healthcare provider as scheduled. Call your healthcare provider between visits as needed, especially if you have concerns about symptoms. Tell your healthcare provider or get emergency help right away if you or your family member have any of the following symptoms, especially if they are new, worse, or worry you: thoughts about suicide or dying new or worse depression feeling very agitated or restless trouble sleeping (insomnia) acting aggressive, being angry or violent an extreme increase in activity and talking (bon) suicide attempts new or worse anxiety panic attacks new or worse irritability acting on dangerous impulses other unusual changes in behavior or mood Do not drive, operate machinery, or do anything where you need to be completely alert after taking SPRAVATO. Do not take part in these activities until the next day following a restful sleep. Increased blood pressure. SPRAVATO can cause a temporary increase in your blood pressure that may last for about 4 hours after taking a dose. Your healthcare provider will check your blood pressure before taking SPRAVATO and for at least 2 hours after you take SPRAVATO. Tell your healthcare provider right away if you get chest pain, shortness of breath, sudden severe headache, change in vision, or seizures after taking SPRAVATO. Problems with thinking clearly. Tell your healthcare provider if you have problems thinking or remembering. Bladder problems. Tell your healthcare provider if you develop trouble urinating, such as a frequent or urgent need to urinate, pain when urinating, or urinating frequently at night. The most common side effects of SPRAVATO include: feeling disconnected from yourself, your thoughts, feelings and things around you dizziness nausea feeling sleepy spinning sensation decreased feeling of sensitivity (numbness) feeling anxious lack of energy increased blood pressure vomiting feeling drunk headache feeling very happy or excited If these common side effects occur, they usually happen right after taking SPRAVATO and go away the same day. Persistent depressive episodes over the past six months with increased frequency and intensity. Current regimen of bupropion and aripiprazole provides partial relief but does not fully control symptoms. Patient remains engaged in ongoing follow-up and is open to medication adjustments. - Decrease bupropion dose to 200 mg daily. - Continue Auyvllety twice daily. - Initiate Spravato (esketamine) therapy as approved. - Advise to avoid Auvility and Adderall on the day of Spravato treatment. - Recommend bringing meditation or instrumental music for treatment sessions. - Encourage positive activities post-treatment to foster improved mood. - Continue follow-up with [facility]. 01/10/2025 Attention-defici t hyperactivity disorder, combined type (ICD-10 - F90.2) 01/18/2025 Major depressive disorder, recurrent severe without psychotic features (ICD-10 - F33.2) 01/21/2025 Major depressive disorder, recurrent severe without psychotic features (ICD-10 - F33.2) 01/25/2025 Major depressive disorder, recurrent severe without psychotic features (ICD-10 - F33.2) 01/28/2025 Major depressive disorder, recurrent severe without psychotic features (ICD-10 - F33.2) 01/30/2025 Major depressive disorder, recurrent severe without psychotic features (ICD-10 - F33.2) 02/04/2025 Major depressive disorder, recurrent severe without psychotic features (ICD-10 - F33.2) 02/04/2025 Attention-defici t hyperactivity disorder, combined type (ICD-10 - F90.2) 02/06/2025 Major depressive disorder, recurrent severe without psychotic features (ICD-10 - F33.2) 02/11/2025 Major depressive disorder, recurrent severe without psychotic features (ICD-10 - F33.2) 02/12/2025 Attention-defici t hyperactivity disorder, combined type (ICD-10 - F90.2) 02/13/2025 Major depressive disorder, recurrent severe without psychotic features (ICD-10 - F33.2) 02/18/2025 Major depressive disorder, recurrent, moderate (ICD-10 [...] as needed. - Refill Adderall as needed. 10/29/2024 Major depressive disorder, recurrent, mild (ICD-10 - F33.0) I'm considering augmenting therapy with a new medication or starting/switching to a new medication List all the Jukely medications that you are considering for augmentation or starting/switching to ____ Medication considered [id number] Escitalopram (Lexapro), [id number], CYP2D6 Amitriptyline (Elavil), CYP2D5 Aripiprazole (Abilify), CYP2D6 Brexpiprazole (Rexulti ), CYP2D6 Paroxetine (Paxil ), CYP2D6 Venlafaxine (Effexor ), [id number], HLA-B1502 Carbamazepine (Tegretol ) and HLA-B*1502 Oxcarbazepine (Trileptal ) I'm considering a dosage adjustment to currently prescribed medication(s)___`b upropion Have you considered non-genetic factors to make a preliminary drug selection, including a personalized medication decision based on the patient's diagnosis, the patient's other medical conditions, other medications the patient is taking, professional judgment, clinical science and basic science pertinent to the drug (e.g. mechanism of action, side effects), the patient's past medical history, and when pertinent, family history and the patient's preferences and values? Note: Many insurance providers require clinicians to consider non-genetic factors when ordering this test. Jukely MTHFR Yes NO 10/29/2024 Attention-defici t hyperactivity disorder, combined type (ICD-10 - F90.2) 10/29/2024 Other fatigue (ICD-10 - R53.83) 12/24/2024 Other fatigue (ICD-10 - R53.83) 01/10/2025 Other fatigue (ICD-10 - R53.83) 02/18/2025 Attention-defici t hyperactivity disorder, combined type (ICD-10 - F90.2) 12/24/2024 Attention-defici t hyperactivity disorder, combined type (ICD-10 - F90.2) 12/10/2024 Attention-defici t hyperactivity disorder, combined type (ICD-10 - F90.2) 10/01/2024 Negative depression screening (ICD-10 - Z13.31) 09/03/2024 Negative depression screening (ICD-10 - Z13.31) 07/30/2024 Major depressive disorder, recurrent, mild (ICD-10 - F33.0) 07/30/2024 Encounter for screening for cardiovascular disorders (ICD-10 - Z13.6) 09/03/2024 Attention-defici t hyperactivity disorder, combined type (ICD-10 - F90.2) 10/01/2024 Attention-defici t hyperactivity disorder, combined type (ICD-10 - F90.2) 12/10/2024 Other fatigue (ICD-10 - R53.83) 12/24/2024 Sleep apnea, unspecified (ICD-10 - G47.30) 01/10/2025 Sleep apnea, unspecified (ICD-10 - G47.30) 02/18/2025 Other fatigue (ICD-10 - R53.83) Persistent excessive sleepiness and brain fog reported by the patient. Improvement in energy and clarity noted after recent treatments, but not consistent. 02/18/2025 Sleep apnea, unspecified (ICD-10 - G47.30) 10/01/2024 Encounter for screening for depression (ICD-10 - Z13.31) 09/03/2024 Encounter for screening for depression (ICD-10 - Z13.31) 10/01/2024 Major depressive disorder, recurrent, mild (ICD-10 - F33.0) 09/03/2024 Major depressive disorder, recurrent, mild (ICD-10 - F33.0) 07/30/2024 Andres Cuenca, a patient with a history of depression and ADHD, presents with persistent apathy and disinterest in previously enjoyed activities, despite current treatment with Adderall and Auvelity. Major Depressive Disorder with Anhedonia Assessment: Patient reports ongoing symptoms of apathy and anhedonia, despite current treatment with Adderall 20mg and Auvelity (twice daily). She denies sadness or hopelessness but describes a constant sense of apathy and lack of interest in previously enjoyed activities. These episodes are occurring more frequently, lasting 2-3 days at a time, and are not attributed to lack of sleep. The patient has recently resumed counseling. Previous trials of bupropion and Zoloft resulted in adverse effects, including gastrointestinal issues and nausea. Sleep has improved with the addition of Prometrium. The patient reports being sensitive to medications. Plan: - Add Vraylar 1.5 mg PO daily - Recommend taking in the morning due to potential energizing effects - Informed patient about possible side effects, including tiredness in some individuals - Provided information on Spravato (esketamine nasal spray) as a potential future treatment option - Explained treatment course: twice weekly for 4 weeks, then once weekly for 4 weeks, followed by less frequent administration - Discussed 2-hour observation period requirement and inability to drive after treatment - Continue current medications: - Adderall 20 mg (frequency and timing not specified) - Auvelity twice daily - Prometrium (dose and frequency not specified) - Encourage continuation of counseling - Advised to maintain current diet and exercise regimen - Follow up to assess response to Vraylar and discuss potential need for further interventions Attention Deficit Hyperactivity Disorder (ADHD) Assessment: Patient continues to take Adderall 20 mg for ADHD management. She reports that the medication helps her stay present in her job, suggesting some benefit for attention and focus. Plan: - Continue Adderall 20 mg (frequency and timing not specified) - Monitor for any changes in ADHD symptoms with the addition of Vraylar the note is transcribed using speech recognition software. It is a reflection of a visit with the patient. It might have some inaccuracy, including medication names and transcribing errors, though efforts have been made to correct them. 09/03/2024 Andres Linares, a patient with depression and ADHD, reports improvement in mood and motivation after recent medication adjustments. Major Depressive Disorder Assessment: Patient reports improvement in mood and motivation since starting Auvelity and adding bupropion SR 150 mg twice daily. She notes feeling a little bit more motivated and that her mood is a little better. The patient previously experienced anhedonia and avolition, which she had not recognized fully until other activities were restricted. The combination of Auvelity and bupropion appears to be addressing her dopaminergic deficits effectively. Plan: - Increase bupropion SR to 200 mg PO twice daily - Continue Auvelity (dose not specified) - Follow up to assess response to medication adjustment Attention Deficit Hyperactivity Disorder (ADHD) Assessment: Patient is currently managed on Adderall for ADHD symptoms. She takes a 10 mg afternoon dose as needed. With the increase in bupropion, there is a possibility that the afternoon Adderall dose may no longer be necessary. Plan: - Continue Adderall (base dose not specified) - Patient to monitor need for 10 mg afternoon Adderall dose after bupropion increase Sedentary Lifestyle Assessment: Patient reports purchasing a walking pad and standing desk to address prolonged sitting during [id number] hours, demonstrating initiative in improving physical activity levels. Plan: - Encourage continued use of walking pad and standing desk to increase daily physical activity Sleep Assessment: Patient reports overall good sleep quality with occasional nighttime awakenings, but able to fall back asleep easily. Plan: - Continue to monitor sleep quality the note is transcribed using speech recognition software. It is a reflection of a visit with the patient. It might have some inaccuracy, including medication names and transcribing errors, though efforts have been made to correct them. 10/01/2024 Andres Linares presents with worsening attention and concentration issues, increased forgetfulness, and persistent fatigue, despite current ADHD medication regimen. Attention-Deficit/ Hyperactivity Disorder (ADHD) Assessment: Patient reports increased difficulty with attention, concentration, and task completion, particularly noticeable during charting activities. Symptoms include feeling scattered, overwhelmed, and restless. Patient has experienced increased forgetfulness, missing three appointments. Current medication (Adderall XR 20 mg) appears to be less effective in managing symptoms. Patient also reports persistent fatigue throughout the day, unresponsive to caffeine. Sleep disturbances noted, with patient waking up at least twice during the night. Social anxiety and avoidance behaviors are present, impacting the patient's ability to engage in spontaneous social situations. Plan: - Increase Adderall XR to 25 mg PO daily - Continue immediate-release Adderall as needed on workdays - Follow-up appointment scheduled in one month Sleep Disturbance Assessment: Patient reports waking up at least twice during the night, indicating potential sleep maintenance insomnia. This may be contributing to daytime fatigue and exacerbating ADHD symptoms. Plan: - Monitor sleep patterns and their impact on daytime functioning - Reassess at follow-up appointment Social Anxiety Assessment: Patient expresses difficulty in meeting friends and engaging in spontaneous social situations. There is a history of feeling overwhelmed by social interactions, leading to current avoidance behaviors and anxiety about unexpected social engagements. Plan: - Continue to monitor and assess impact on daily functioning - Address during follow-up appointment if symptoms persist or worsen the note is transcribed using speech recognition software. It is a reflection of a visit with the patient. It might have some inaccuracy, including medication names and transcribing errors, though efforts have been made to correct them. 10/29/2024 Other Medication considered _ Nelida Cuenca presents with complaints of sleep disturbances, including frequent nighttime awakenings and daytime fatigue, potentially impacting her mood and daily functioning. Sleep Disturbance Assessment: Patient reports waking up two to three times per night without needing to use the bathroom, though able to fall back asleep within a few minutes. She experiences daytime fatigue and could doze off if not moving. Patient feels more awake towards the end of the day than at the beginning. Caffeine consumption exacerbates fatigue symptoms. These symptoms suggest possible sleep-disordered breathing or other sleep disorders. Plan: - Order home sleep study through [facility] - Patient to await contact from [facility] for sleep study registration - Follow up in 6 weeks to review sleep study results Depression Assessment: Patient reports that her mood improves significantly with adequate rest. Current medication regimen includes Auvelity and bupropion for depression management. Patient denies current depressive symptoms when sleep is adequate. Plan: - Continue Auvelity twice daily - Continue bupropion SR 200 mg twice daily - Monitor mood in relation to sleep quality Attention Deficit Hyperactivity Disorder (ADHD) Assessment: Patient is currently on Adderall ER for ADHD management. She reports that the medication's effectiveness tends to diminish after about three weeks of use. A recent dose increase has been implemented. Plan: - Continue Adderall ER-25 - Order pharmacogenomic testing (gene site testing) to guide future medication management - Discuss gene site test results at follow-up appointment the note is transcribed using speech recognition software. It is a reflection of a visit with the patient. It might have some inaccuracy, including medication names and transcribing errors, though efforts have been made to correct them. 11/27/2024 Other 1. Major Depressive Disorder, severe - Patient reports worsening depressive symptoms over the past few weeks. - Endorses brain fog, difficulty concentrating, and feeling the need to mask happiness. - Current medication regimen not adequately managing symptoms during periods of stress. - Plan: a. Initiate esketamine (Spravato) PA. b. Consider adding Rexulti to current medication regimen- patient refused. c. Continue current medications: bupropion XL, aripiprazole, amphetamine/dextro amphetamine, lorazepam. d. Continue therapy with [facility]. 2. Anxiety - Patient reports anxiety symptoms exacerbated by stressors, including work changes and travel. - Current medication regimen not adequately managing symptoms during periods of stress. - Plan: a. Monitor anxiety symptoms with initiation of esketamine treatment. b. Continue current anxiolytic medications. c. Encourage ongoing stress-reduction techniques. d. continue therapy with [facility] 3. Perimenopause - Patient experiencing perimenopausal symptoms, which may be contributing to mood instability. - Plan: a. Recommend follow-up with SHIP RIGGER APPRENTICE for comprehensive evaluation and management. b. continue HRT. 12/10/2024 Other she is a reduced folic acid converter, recommend folic acid or folate supplementation 11/09/24 genesight test done Nelida Cuenca presents with worsening mood symptoms, including tearfulness, low energy, and feeling overwhelmed following a stressful period at work and a recent vacation. 1. Major Depressive Disorder with Anxiety - Patient reports experiencing increased anxiety, feeling overwhelmed, and persistent low mood. Symptoms include tearfulness, low energy, and difficulty with daily activities. Recent stressors include changes in work environment and a vacation, which may have exacerbated her condition. Previous trial of Vraylar resulted in severe side effects. Gene site results show bupropion in the use as directed category. Perimenopause may be contributing to mood fluctuations. Sleep quality is reported as generally good, but some restlessness noted. Appetite has decreased, but patient is making conscious efforts to maintain nutrition. Plan: - Continue Auvelity twice daily - Continue Adderall 25 mg - Start Rexulti 0.25 mg daily (samples provided) - Informed consent: Discussed potential side effects, including weight gain. Patient expressed concern but agreed to try. - Recommend methylated folate supplementation due to reduced fomic acid converter status - Follow up on Spravato approval status - Complete FMLA paperwork for intermittent leave and work accommodations - Decreased workload as necessary - Allowance for absences due to medication side effects 2. Decreased Physical Activity - Patient reports difficulty maintaining regular exercise routine due to low energy and feeling overwhelmed. This is a significant change from her previous level of fitness, which she values highly. The decrease in physical activity may be contributing to her mood symptoms and overall well-being. Plan: - Encourage gradual return to exercise routine as tolerated - Discuss strategies for overcoming barriers to physical activity 3. Follow-up and Monitoring Plan: - Follow up in 2 weeks the note is transcribed using speech recognition software. It is a reflection of a visit with the patient. It might have some inaccuracy, including medication names and transcribing errors, though efforts have been made to correct them. 12/24/2024 Andres Cuenca, a patient with a history of depression and recently diagnosed central sleep apnea, presents with worsening depressive symptoms including persistent suicidal thoughts without a plan. Major Depressive Disorder Assessment: Patient reports worsening depressive symptoms compared to the past year, including persistent suicidal thoughts without a plan. She expresses concern about her emotional state, noting increased tearfulness at home and difficulty controlling her emotions during the appointment. The patient also reports significant cognitive symptoms, particularly impaired recall, which she describes as scary bad. These symptoms suggest an exacerbation of her previously diagnosed depression. Plan: - Consider initiating Spravato (esketamine) treatment - Discussed potential benefits for treatment-resistan t depression - Patient expressed willingness to try this intervention due to severity of symptoms - Advised patient to maintain contact with support system (e.g., nurse practitioner friend) when experiencing suicidal thoughts - Continue monitoring for changes in suicidal ideation and safety planning Central Sleep Apnea Assessment: Recent sleep study results indicate a diagnosis of central sleep apnea (CSA) rather than obstructive sleep apnea. The study identified 27 apneas, with 3 classified as central-mixed based on respiratory effort, and 22 hypopneas. The patient reports a long-standing history of never feeling fully rested upon waking, suggesting this condition may have been present for an extended period. Plan: - CPAP machine and mask have been ordered - Referral to sleep specialist in [place] initiated by primary care provider - Follow up on CPAP initiation and adherence at next visit the note is transcribed using speech recognition software. It is a reflection of a visit with the patient. It might have some inaccuracy, including medication names and transcribing errors, though efforts have been made to correct them. 08/01/2024 Other Electronic Prio r Authorization was requested for Vraylar 1.5 MG Capsule. Provider can order medication once approval received. Plan Of Treatment Pending Test Test Name Order Date Cytochrome P450 2D6 Genotyping Cytochrome P450 2C9 Genotyping 5 Cytochrome P450 2C19 10/29/2024 Next Appt Details Provider Name:Avila Stafford , 02/19/2025 08:00:00 AM, [address], [facility] [address], [place], [address], Provider Name:Avila Stafford , 02/25/2025 08:00:00 AM, [address], [facility] [address], [place], [address], Provider Name:Avila Stafford , 03/04/2025 08:00:00 AM, [address], [facility] [address], [place], [address], Provider Name:Avila Stafford , 03/11/2025 08:00:00 AM, [address], [facility] [address], [place], [address], Provider Name:Avila Stafford , 03/18/2025 10:15:00 AM, [address], [facility] [address], [place], [address], Insurance Providers Payer Name Payer Address Payer Phone Subscriber Number Group Number Insured Name Patient Relationship to Insured Coverage Start Date Coverage End Date [facility] [address] [place] [address] [id number] NELIDA REN Self - patient is the insured [facility] With [place] [id number] [place] [address] [id number] NELIDA REN Self - patient is the insured Medications Administered Medication Instructions Date of Administration Dosage Notes Spravato (84 MG Dose) 01/18/2025 84 mg Spravato (84 MG Dose) 01/21/2025 84 mg Spravato (84 MG Dose) 01/25/2025 84 mg Spravato (84 MG Dose) 01/28/2025 84 mg Spravato (84 MG Dose) 01/30/2025 84 mg Spravato (84 MG Dose) 02/04/2025 84 mg Medical (General) History Medical History History ICD Code Problems: Attention deficit hyperactivit y disorder, combined type Generalized anxiety disorder Mild recurrent major depression Severe recurrent major depression withou t psychotic features , Imported from [facility]: Th e patient has a history of various health [...] The patient also underwent lab requisition at [facility] and a scan at [facility]. Major depressive disorder, recurrent epi sodes Surgical History Surgery Date(Month/Year) Breast surgery () Cosmetic surgery 03/28/2003 Any surgical history 09/29/2005 Endometrial ablation (07362) 02/05/2011 Other 02/05/2011
--- OUTSIDE RECORDS SUMMARY | 2025-02-18 10:22 | XMS_ITS | Encounter Summary ---
[facility] Organization [facility] Address 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 Gender Identity Not on file [...] ABG ORDERABLES Final Result Performing Organization Address [facility] Phone Number INTERFACE SYSTEM Refer [...] ABG ORDERABLES Final Result Performing Organization Address [facility] de Phone Number INTERFACE SYSTEM [...] INTERFACE SYSTEM 09/29/2005 10:5 0 AM CDT us Sarah Cole MD HEMATOLOGY ORDERABLES Final Result INTERFACE SYSTEM Refer to clinic/hospital department * [...] INTERFACE SYSTEM 09/29/2005 10:5 0 AM CDT us Sarah Cole MD HEMATOLOGY ORDERABLES Final Result Performing Organization Address [facility] Co de Phone Number INTERFACE SYSTEM Refer to clinic/hospital department documented in this encounter Visit Diagnoses Diagnosis Other specified malposition or malpresentation of fetus, delivered- Primary documented in this encounter Care Teams Auto Driver Relationship Specialty Start Date End Date Genevieve Newman APN PCP - General NURSE PRACTITIONER 07/18/20 documented as of this encounter
--- OUTSIDE RECORDS SUMMARY | 2025-02-18 10:22 | XMS_ITS | Clinical Summary ---
Author Organization [facility] [employer] Address [address] [place] [address] Care Team Providers Care Marketing Designer Name Role Phone Sola Shah RN Unavailable Unavailable Arina William ELECTRONIC PUBLICATIONS SPECIALIST-ARCHITECTURAL PROJECT MANAGER Primary Care Provider + Source Comments [facility],non-owned Affiliates and Associated Physician Practices is amultiple site organization consisting of ambulatory clinics and hospital sitesin [place], [place], [place] and [place]. This disclosure is being madepursuant to the Care Everywhere program and may not contain all information available regarding this patient. Last updated 17.[facility] [employer] Allergies Active Allergy Reactions Criticality Noted Date Comments Aspirin Swelling 04/26/2018 Wheat Bran GI Discomfort 04/26/2018 Medications * Be aware that medications may not be up to date on this document. Alwaysverify current medications with the patient. multivitamin daily tablet Take 1 tablet by mouth daily with food Active [place]-3 Fatty Acids (FISH OIL PO) Active B Complex Vitamins (B COMPLEX PO) Active CBD oil Active diclofenac sodium XR 24hr (VOLTAREN XR) 100 MG tabletIndicatio ns:Sacroiliac joint pain Take 1 tablet by mouth once daily 90 tablet 11/23/2018 Active levomilnacipran ER (FETZIMA) 80 MG capsuleIndicati ons:Anxiety and depression Take 1 capsule by mouth once daily 90 capsule 12/07/2018 Active azelastine (Astelin) 0.1 % nasal spray [place] 1 (one) spray into each nostril 2 times daily 30 mL 1 10/06/2024 Active fluticasone propionate (Flonase) 50 MCG/ACT nasal spray SHAKE LIQUID AND USE 1 SPRAY IN EACH NOSTRIL TWICE DAILY 48 g 10/08/2024 Active pantoprazole EC (Protonix) 40 MG tablet TAKE 1 TABLET BY MOUTH DAILY 90 tablet 10/08/2024 Active Active Problems Problem Noted Date Diagnosed [...] Oxygen Concentration 100% 05/31/2017 6 :57 AM CLINICAL REHABILITATION LIAISON Weight 61.7 kg (136 lb) 09/05/2018 8:47 AM CDT Height 167.6 cm (5' 6) 09/05/2018 8:47 AM CDT Body Mass Index [...] of 3 - 19+ 3-dose series) 08/28/1994 PAP with HPV 08/28/2005 Cervical Cancer Screening 02/12/2019 PAP SMEAR 02/12/2019 02/13/2016 LIPID TESTING 02/10/2023 02/10/2018, 01/26/2017, 10/18/2014 DEPRESSION SCREENING 03/28/2024 DTAP/TDAP/TD VACCINES (2 - T d or Tdap) 10/18/2024 10/18/2014 COVID-19 VACCINE (1 - 2024-2 6 season) 2024 INFLUENZA VACCINE (#1) 2024 8, 12/29/2016 ZOSTER VACCINE (1 of 2) 08/28/2025 [...] Comments LIPID PROFILE Routine 02/10/2018 12:00 AM CLINICAL REHABILITATION LIAISON Screening for lipoid disorders HEPATITIS C ANTIBODY Routine 11/16/2017 8:30 AM CDT Well woman exam with routine gynecological exam HIV-1 HIV-2 ANTIBODY W REFLX Routine 11/16/2017 8:30 AM CDT Well woman exam with routine gynecological exam PAP IMAGE-GUIDED W HPV Routine 02/13/2016 8:04 AM CLINICAL REHABILITATION LIAISON from Last 3 Months or Most Recently Relevant to Health Maintenance Results * (ABNORMAL) LIPID PROFILE (02/10/2018 12:00 AM CLINICAL REHABILITATION LIAISON) Cholesterol 211(H) 100 - 199 mg/dL [facility] [...] Unknown 02/10/2018 02/10/2018 Narrative Resulting Agency Comment [facility] [address] [id number] Braulio Mesa DO LAB - CHEMISTRY ORDERABLES Final Result [facility] INSURANCE BILL [address] [place] [address] * HIV-1 HIV-2 ANTIBODY W REFLX (11/16/2017 8:30 AM CDT) HIV-1 Antibody Negative Negative [facility] INSURANCE BILL HIV-2 Antibody Negative Negative [facility] INSURANCE BILL Interpretation Negative [facility] INSURANCE BILL Comment:See RNA Reflex. Blood BLOOD SPECIMEN / Unknown 11/16/2017 8:30 AM CDT 11/16/2017 Narrative Resulting Agency Comment [facility] [address] [facility] [id number] Tamika Willams ELECTRONIC PUBLICATIONS SPECIALIST-[facility] LAB - SEROLOGY ORDERABLES Final Result [facility] INSURANCE BILL [address] [place] [address] * HEPATITIS C ANTIBODY (11/16/2017 8:30 AM CDT) Hepatitis C Antibody <0.1 0.0 - 0.9 s/co ratio [facility] INSURANCE BILL Comment: Negative: < 0.8 Indeterminate: 0.8 - 0.9 Positive: > 0.9 . The CDC recommends that a positive HCV antibody result be followed up with a HCV Nucleic Acid Amplification test (698300). Blood BLOOD SPECIMEN / Unknown 11/16/2017 8:30 AM CDT 11/16/2017 Narrative Resulting Agency Comment [facility] [address] [facility] [id number] Tamika Willams ELECTRONIC PUBLICATIONS [facility] - CHEMISTRY ORDERABLES Final Result Performing Organization Address [facility] de Phone Number [facility] INSURANCE BILL [address] [place] [address] * PAP IMAGE-GUIDED LIQUID BASE W HPV (02/13/2016 8:04 AM CLINICAL REHABILITATION LIAISON) Pap Image-Guided Liquid-Based with HPV Accession No: [id number] Specimen:Endocervi vic ThinPrep Slides:1 SPECIMEN ADEQUACY: SATISFACTORY FOR EVALUATION - Endocervical / Transformation Zone Component Present INTERPRETATION: NEGATIVE FOR INTRAEPITHELIAL LESION OR MALIGNANCY NOTE(S): HPV DIRECT - HPV Result to Follow This specimen was evaluated by the ThinPrep Imaging System along with an additional manual rescreening by a mail inserter and/or pathologist Interpretation performed by Ayo POWER(ASCP). Electronically signed 02/16/2016 [facility] ([place]) Endocervical 02/13/2016 8:04 AM CLINICAL REHABILITATION LIAISON 02/16/2016 11:19 AM CLINICAL REHABILITATION LIAISON Bouchra Gutierrez APRN-[facility] LAB - PATHOLOGY/CYT OLOGY ORDERABLES Final Result [facility] ([place]) from Last 3 Months or Most Recently Relevant to Health Maintenance Insurance [facility] Member Subscriber Plan / Payer (Ef fective 2016-Present) Name:Bartromerodonna Kristy Anders Relation to Subscriber:Self Name:BartromeroSebas thompsonstanley Anders Payer ID:[id number] (NAIC) Type:[employer] Address: [place] [id number] [facility] [place] [phone] Advance Directives * Full Code (Latest Code Status on File) Date Activated Date Inactivated Comments 05/03/2017 1:35 PM 05/06/2017 5:28 PM * Full Code Date Activated Date Inactivated Comments 04/29/2017 1:32 PM 04/30/2017 1:30 PM Care Teams Marketing Designer Relationship Specialty Start Date End Date Arina William APRN-CNP PCP - General 12/07/18 Sola Shah, RN Registered Nurse 05/03/17
--- OUTSIDE RECORDS SUMMARY | 2025-02-18 10:23 | XMS_ITS | Encounter Summary ---
Author Organization [facility] Address [address] [place] [address] Care Team Providers Care Casting Carrier Name Role Phone Karen Roque NP Primary Care Provider [phone] Encounter Details Date Type Department Care Team (Late st Contact Info) Description 09/07/2024 Orders Only [facility] Primary Care at [address] [address] Karen Roque NP [address] [place] [address] [address] [place] [address] Social History Tobacco Use Types Packs/Day Years Used Date Smoking Tobacco: Never Passive Smoke Exposure: Never Smokeless Tobacco: Never AUDIT-C Answer Date Recorded Q1: How often do you have a drink containing alc ohol? Monthly or less 08/13/2024 Q2: How many drinks containi ng alcohol do you have on a typical day when you are drinking? 1 or 2 08/13/2024 Q3: How often do you have si x or more drinks on one occasion? 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 Gender Identity Female 09/21/2024 8:03 AM CDT Sexual Orientation Straight 09/21/2024 8: 03 AM CDT documented as of this encounter Ordered Prescriptions Prescription Sig Dispense Quantity Refills Last Filled Start Date End Date benzonatate (TESSALON) 100 mg capsuleIndications :Cough Take 1 capsule (100 mg total) by mouth 3 (three) times a day as needed for cough 42 capsule 09/07/2024 documented in this encounter Plan of Treatment Not on file documented as of this encounter Visit Diagnoses Not on filedocumented in this encounter Care Teams Casting Carrier Relationship Specialty Start Date End Date Karen Roque NP [address] [place] [address] PCP - General Internal Medicine 06/27/24 documented as of this encounter
--- OUTSIDE RECORDS SUMMARY | 2025-02-18 10:23 | XMS_ITS | Clinical Summary ---
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 Gender Identity Not on file Sexual [...] 7:41 AM CDT Height 167.6 cm (5' 6) 09/03/2020 7:41 AM CDT Body Mass Index [...] Flex Sig/CT Colonography Q 5 years 08/28/2020 DTAP/TDAP/TD VACCINES (2 - T d or Tdap) 10/18/2024 10/18/2014, 01/18/2005, 09/25/2004 INFLUENZA VACCINE (#1) 2024 , 01/18/2018, 12/29/2016 COVID-19 Vaccine ( season) 11/26/202404/2020, 04/29/2020 COLORECTAL SCREENING 09/03/2030 09/03/2020, 09/04/19 Colorectal Cancer Screening 09/03/2030 Medical Devices Implanted Type Area Business Support Manager Device Identifier Shelf Expiration Date Model / Serial / Lot Capsule Tee Ph Test s-0635 - [id number] Implanted:Qty: 1 on 09/03/2020 by Linsey Schneider MD at 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 GIVEN 10/14/2021 S-0635 / / [id number] Description:placed at 31 cm. 96 hour study off medication. Procedures Procedure Name Priority Date/Time Associated Diagnosis Comments COLONOSCOPY REPORT 09/03/2020 9: 29 AM CDT from Last 3 Months or Most Recently Relevant to Health Maintenance Results * COLONOSCOPY REPORT (09/03/2020 9:29 AM CDT) Narrative Procedure Note Linsey Schneider MD - 09/03/2020 9:[address] [facility] GI Patient Name: Nelida Cuenca Procedure [...] bowel preparation was evaluated using the BBPS ([place] Bowel Preparation Scale) with scores of: Right [...] previously scheduled. Procedure Code(s): --- Professional --- 16759, Colonoscopy, flexible; with biopsy, single or multiple Diagnosis Code(s): --- Professional --- Z12.11, Encounter for screening for malignant neoplasm of colon K64.9, Unspecified hemorrhoids K63.3, Ulcer of intestine CPT copyright 2019 [employer]. All rights reserved. The codes documented in this report are preliminary and upon shipfitters supervisor review may be revised to meet current compliance requirements. Linsey Schneider, 09/03/2020 9:28:14 AM This report has been signed electronically. Number of Addenda: 0 Estimated Blood Loss: Estimated blood loss was minimal. Linsey Schneider MD GI PROCEDURE ORDERABLES F inal Result from Last 3 Months or Most Recently Relevant to Health Maintenance Insurance [employer] PPO [phone] Advance Directives For more information, please contact: [phone] * Full Code (Latest Code Status on File) Date Activated Date Inactivated Comments 09/03/2020 7:17 AM 09/03/2020 12:26 PM Care Teams Rotary Drill Rig Operator Relationship Specialty Start Date End Date Genevieve Newman APN PCP - General NURSE PRACTITIONER 07/18/20
--- OUTSIDE RECORDS SUMMARY | 2025-02-18 10:23 | XMS_ITS | Clinical Summary ---
Author Organization [facility] Address [address] [place] [address] Care Team Providers Care Video Production Assistant Name Role Phone Karen Roque NP Primary Care Provider [phone] Allergies Active Allergy Reactions Criticality Noted Date Comments Adhesive Rash Medium 01/04/2025 Estradiol Rash Medium 08/13/2024 Adhesive on patch, but Does fine with oral estradiol Medications Auvelity 45-105 mg tablet, IR & ER, biphasic Take 1 tablet by mouth 2 (two) times a day 4 Active estradioL (ESTRACE) 2 mg tablet Take 1 tablet (2 mg total) by mouth daily Active progesterone (PROMETRIUM) 200 mg capsule Take 1 capsule (200 mg total) by mouth daily Active dextroamphetamine- amphetamine XR (ADDERALL XR) 20 mg 24 hr capsule Take 1 capsule (20 mg total) by mouth every morning Active dextroamphetamine- amphetamine (ADDERALL) 10 mg tablet 1 tablet (10 mg total) daily as needed Active rosuvastatin (CRESTOR) 5 mg tabletIndications: Type 2 diabetes mellitus without complication, without long-term current use of insulin (HCC) Take 1 tablet (5 mg total) by mouth daily 90 tablet 3 5 Active metFORMIN (GLUCOPHAGE) 1,000 mg tablet Take 1 tablet (1,000 mg total) by mouth daily with breakfast 90 tablet 3 5 Active benzonatate (TESSALON) 100 mg capsuleIndications :Cough Take 1 capsule (100 mg total) by mouth 3 (three) times a day as needed for cough 42 capsule 5 Active ketoconazole 1 % shampoo Shampoo daily, leave on for 5-10 minutes, then rinse. 120 mL 2 5 09/12/19 26 Active levothyroxine (SYNTHROID) 88 mcg tabletIndications: Acquired hypothyroidism TAKE 1 TABLET BY MOUTH EVERY MORNING BEFORE BREAKFAST 30 tablet 2 5 Active testosterone 5.5 mg/0.122 gram/actuation gel in metered-dose pump Apply 2 clicks to inner thigh daily 5 Active buPROPion SR (WELLBUTRIN SR) 200 mg 12 hr tablet Take 1 tablet (200 mg total) by mouth 2 (two) times a day Active ESTRIOL, BULK, MISC Face cream 4 Active Adderall XR 25 mg 24 hr capsule Take by mouth every morning Active Active Problems Problem Noted Date Diagnosed Date TIM (obstructive sleep apnea) 01/04/2025 Assessment & Plan (01/04/2025 10:59 AM CDT): The patient was found to have TIM on a recent snap home sleep test. I have recommended proceeding with the auto titrating CPAP unit with a range of 5-15 cm water pressure for ongoing symptoms TIM. Her [employer] will be adapt. She will follow up here in 2 months. Acquired hypothyroidism 06/07/2023 Assessment & Plan (08/13/2024 11:25 AM CDT): We will continue Synthroid 88 mcg. Assessment & Plan (06/07/2023 8:50 AM CDT): We will decrease Synthroid from 100 mcg to 88 mcg. Repeat TSH in eight weeks. Type 2 diabetes mellitus wit hout complication, without long-term current use of insulin 06/07/2023 Assessment & Plan (08/13/2024 11:25 AM CDT): Continue metformin at 1000 mg per day. Diagnosis in media tab per CGM monitoring. Will check A1c in three months. Continue Crestor 5mg daily for ASCVD protection. Orders: rosuvastatin (CRESTOR) 5 mg tablet; Take 1 tablet (5 mg total) by mouth daily Assessment & Plan (06/07/2023 9:20 AM CDT): Continue metformin at 1000 mg per day. Diagnosis updated in media tab with CGM monitoring. Pending appt with endocrine. Will check A1c in three months. Start crestor 5mg daily for ASCVD protection. Crohn's disease of colon without complication Assessment & Plan (08/13/2024 11:25 AM CDT): Follows with GI. Assessment & Plan (06/07/2023 8:52 AM CDT): Follows with GI. Wellness examination 06/03/2023 Assessment & Plan (08/13/2024 11:25 AM CDT): Routine health maintenance objectives discussed and orders placed for any outstanding screening studies. Physical exam performed as above. Routine annual labs obtained and will be reviewed with patient when results available. Age-appropriate anticipatory guidance and counseling was provided and reviewed including: Encouraged regular physical activity--moderate activity for a total of 150 minutes per week over 3-5 days. Encouraged healthy diet with regular fresh fruits and vegetables limited in processed carbohydrates. Assessment & Plan (06/03/2023 4:27 PM BAKESHOP CLEANER): Routine health maintenance objectives discussed and orders placed for any outstanding screening studies. Physical exam performed as above. Routine annual labs obtained and will be reviewed with patient when results available. Age-appropriate anticipatory guidance and counseling was provided and reviewed including: Encouraged regular physical activity--moderate activity for a total of 150 minutes per week over 3-5 days. Encouraged healthy diet with regular fresh fruits and vegetables limited in processed carbohydrates. Alcohol use Nicotine use Depression screening Lness Vitamin D deficiency 10/06/2021 Assessment & Plan (08/13/2024 11:25 AM CDT): Continue OTC vitamin d supplement. Assessment & Plan (06/03/2023 4:27 PM BAKESHOP CLEANER): Patient advised to switch to [id number] vitamin-D supplement. Advised her to use 2000 units daily.. Insomnia 12/08/2020 Assessment & Plan (08/13/2024 11:25 AM CDT): Patient reports this is improved with her depression and anxiety under control. Assessment & Plan (06/07/2023 8:53 AM CDT): Patient reports this is improved with her depression and anxiety under control. GERD (gastroesophageal reflux disease) Assessment & Plan (08/13/2024 11:25 AM CDT): Asymptomatic since having IBD under control Assessment & Plan (06/07/2023 8:54 AM CDT): Asymptomatic since having IBD under control Attention deficit hyperactivity disorder (ADHD) 05/29/2020 Assessment & Plan (08/13/2024 11:25 AM CDT): Continue recommendations from [facility]. Continue Adderall XR 20mg and Adderall 10mg IR daily. Assessment & Plan (06/07/2023 8:53 AM CDT): Continue recommendations from [facility]. Start Jornay if approved. Anxiety 09/05/2018 Assessment & Plan (08/13/2024 11:25 AM CDT): Continue recommendations from [facility]. Continue Auvelity. Assessment & Plan (06/07/2023 8:51 AM CDT): Continue recommendations from [facility]. Continue Auvelity. Depression 09/05/2018 Assessment & Plan (08/13/2024 11:25 AM CDT): Continue recommendations from [facility]. Continue Auvelity. And wellbutrin 150mg IR bid Assessment & Plan (06/07/2023 8:53 AM CDT): Continue recommendations from [facility]. Continue Auvelity. 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 Was on Xarelto for 6 months. Assessment & Plan (08/13/2024 11:25 AM CDT): Thoracic outlet syndrome in 2018, treated with TPA and surgery. Was on Xarelto for 6 months. Resolved Problems Problem Noted Date Diagnosed Date Resolved Date BMI 21.0-21.9, adult 06/07/2023 025 Assessment & Plan (06/07/2023 8:52 AM CDT): Follow a heart healthy diet, with regular physical activity. Fatigue 10/06/2021 06/03/2023 Seasonal allergies 01/12/2018 Encounters Date Type Department Care Team Description 01/04/2025 10:30 AM CDT Office Visit [address] [phone] Ramiro Cline MD TIM (obstructive sleep apnea) (Primary Dx) 01/04/[address] [address] Ramiro Cline MD Orders Only 01/02/[address] [phone] Ramiro Cline MD CPAP Follow Up 12/21/2024 Orders Only [facility] at [address] [phone] Karen Roque NP Excessive daytime sleepiness (Primary Dx); Sleep disorder from Last 3 Months Immunizations Immunization Administration Dates Next Due Hep A, Adult 04/07/2005,07/27/2004 Hep B Vaccine 04/07/2005,01/21/2005,09/25/2004 Influenza, Quadrivalent, Autumn l Culture-based MDCK, Preservative Free, Antibiotic Free, Intramuscular 01/22/2022 Influenza, Quadrivalent, Spl it, Intramuscular 01/18/2018 Influenza, Quadrivalent, Spl it, Preservative Free, Intramuscular 02/01/2023 Influenza, Trivalent, IM (MDV) 12/29/2016 Influenza, Unspecified 01/22/2023,01/21/2005 MMR 07/21/2004 Td, Unspecified 01/18/2005,09/25/2004 Tdap 10/18/2014 Surgical History Surgery Date Site/Laterality Comments COMBINED AUGMENTATION MAMMAPLASTY AND ABDOMINOPLASTY 03/28/2002 - 03/27/2003 Bilateral SECTION 03/28/2005 - 03/27/2006 ABLATION 03/28/2010 - 03/27/2011 THROMBECTOMY / EMBOLECTOMY SUBCLAVIAN ARTERY COMBINED AUGMENTATION MAMMAPLASTY AND ABDOMINOPLASTY 07/25/2024 Right right breast repair Medical History Medical History Date Comments Thyroid disease Vitamin D deficiency ADHD (attention deficit hyperactivity disorder) Anxiety Depression GERD (gastroesophageal reflux disease) Family History Medical History Relation Name Comments Depression Father Diabetes Father Hyperlipidemia Father Depression Mother Relation Name Status Comments Father Alive Mother Alive Social History Tobacco Use Types Packs/Day Years Used Date Smoking Tobacco: Never Passive Smoke Exposure: Never Smokeless Tobacco: Never Tobacco Cessation:Counseling Given: Not Answered AUDIT-C Answer Date Recorded Q1: How often [...] on file Legal Sex Female 1:01 AM [employer] CLE[employer] Gender Identity Female 09/21/2024 8:03 AM CDT Sexual Orientation Straight 09/21/2024 8: 03 AM CDT Last Filed Vital Signs Vital Sign Reading Time Taken Comments Blood Pressure 102/64 01/04/2025 10:20 AM CDT Pulse 94 01/04/2025 10:20 AM CDT Temperature 36.6 C (97.8 F) 01/04/2025 10:20 AM CDT Respiratory Rate 18 01/04/2025 10:20 AM CDT Oxygen Saturation 99% 01/04/2025 10:20 AM CDT Inhaled Oxygen Concentration - - Weight 55 kg (121 lb 4.8 oz) 01/04/2025 10:20 AM CDT Height 165.1 cm (5' 5) 01/04/2025 10:20 AM CDT Body Mass Index 20.19 01/04/2025 10:20 AM CDT Plan of Treatment Health Maintenance Due Date Last Done Comments Dilated Eye Exam 1975 Breast Cancer Screening-Mammogram 09/15/2023 09/14/2022, 09/04/2020 DTaP/Tdap/Td Vaccine (2 - Td or Tdap) 10/18/2024 10/18/2014, 01/18/2005, 09/25/2004 Covid-19 Vaccine ( season) 2024 02/01/2023, 05/27/2020, 04/29/2020 Influenza Vaccine (#1) 2024 , 01/22/2023, 01/22/2022, Additional history exists Hemoglobin A1C 02/10/2025 08/10/2024 Cervical Cancer Screening 06/14/2025 06/14/2020 Pneumococcal vaccine <65 (1 of 2 - PCV) 07/29/2025 Postponed from 08/28/1994 (Patient declined, but will receive in the future) Albumin Creatinine Ratio, Urine 08/10/2025 08/10/2024 Lipid Panel 08/10/2025 08/10/2024, 03/0 09/2023, 12/15/2020, Additional history exists eGFR 08/10/2025 08/10/2024 Depression Screening 08/13/2025 08/13/2024, 06/03/19 Foot Exam 08/13/2025 08/13/2024, 06/03/2023 Regular Well Visit/Exam 18-64 08/13/2025 08/13/2024, 06/03/2023, 06/03/2023 Colon Cancer Screening-Colonoscopy 09/03/2030 09/03/2020 Hepatitis B Screening Completed 04/07/2005 , 01/21/2005, 09/25/2004 Hepatitis C Screening Discontinued Procedures Procedure Name Priority Date/Time Associated Diagnosis Comments COMPREHENSIVE METABOLIC PANEL Routine 08/10/2024 1:47 PM CDT HEMOGLOBIN A1C Routine 08/10/2024 1:47 PM CDT Type 2 diabetes mellitus without complication, without long-term current use of insulin (HCC) LIPID PANEL Routine 08/10/2024 1:47 PM CDT ALBUMIN CREATININE RATIO, URINE Routine 08/10/2024 1:47 PM CDT Type 2 diabetes mellitus without complication, without long-term current use of insulin (HCC) HM MAMMOGRAPHY Routine 09/14/2022 HM PAP SMEAR WITH HPV Routine 06/14/2020 from Last 3 Months or Most Recently Relevant to Health Maintenance Results * Albumin Creatinine Ratio, Urine (08/10/2024 1:47 PM CDT) Creatinine, ur 66 20 - 275 mg/dL [facility] Microalbumin, ur 0.4 See Note: mg/dL [facility] Comment: Reference Range: Reference Range Not established Microalbumin/creat ratio 6 <30 mg/g creat [facility] Comment: The ADA defines abnormalities in albumin excretion as follows: Albuminuria Category Result (mg/g creatinine) Normal to Mildly increased <30 Moderately increased 30-299 Severely increased > OR = 300 The ADA recommends that at least two of three specimens collected within a 3-6 month period be abnormal before considering a patient to be within a diagnostic category. Urine 08/10/2024 1:47 PM CDT 08/10/2024 1:47 PM CDT Narrative [facility] - 08/13/2024 7:30 AM CDT FASTING:YES FASTING: YES Karen Roque NP LAB URINE ORDERABLES Final Result RAMIRO [facility] [address] [place] [phone] * Hemoglobin A1c (08/10/2024 1:47 PM CDT) Hgb A1C 5.3 <5.7 % of total Hgb [facility] Comment: For the purpose of screening for the presence of diabetes: <5.7% Consistent with the absence of diabetes 5.7-6.4% Consistent with increased risk for diabetes (prediabetes) > or =6.5% Consistent with diabetes This assay result is consistent with a decreased risk of diabetes. Currently, no consensus exists regarding use of hemoglobin A1c for diagnosis of diabetes in children. According to [place] Diabetes Association (ADA) guidelines, hemoglobin A1c <7.0% represents optimal control in non- diabetic patients. Different metrics may apply to specific patient populations. Standards of Medical Care in Diabetes(ADA). Blood 08/10/2024 1:47 PM CDT 08/10/2024 1:47 PM CDT Narrative [facility] - 08/13/2024 7:30 AM CDT FASTING:YES FASTING: YES us Karen Roque NP LAB BLOOD ORDERABLES Final Result [facility] [address] [place] [address] * Lipid panel (08/10/2024 1:47 PM CDT) [facility] Cholesterol 188 <200 mg/dL [facility] HDL 83 > OR = 50 mg/dL [facility] Triglycerides 100 <150 mg/dL [facility] LDL 85 mg/dL (calc) [facility] Comment: Reference range: <100 Desirable range <100 mg/dL for primary prevention; <70 mg/dL for patients with CHD or diabetic patients with > or = 2 CHD risk factors. LDL-C is now calculated using the Dayanara calculation, which is a validated novel method providing better accuracy than the Friedewald equation in the estimation of LDL-C. Enzo SHAVER et al. TANNER. 2013;310(19): 0552-3136 (http://education.NowPublic/faq/SGM054) Chol/HDL ratio 2.3 <5.0 (calc) [facility] Non-HDL, (LDL+VLDL) 105 <130 mg/dL (calc) [facility] Comment: For patients with diabetes plus 1 major ASCVD risk factor, treating to a non-HDL-C goal of <100 mg/dL (LDL-C of <70 mg/dL) is considered a therapeutic option. 08/10/2024 1:47 PM CDT 08/10/2024 1:47 PM CDT Narrative [facility] - 08/13/2024 7:30 AM CDT FASTING:YES FASTING: YES Karen Roque ENGINEERING DESIGN MANAGER LAB BLOOD ORDERABLES Final Result [facility] [address] [place] [phone] * Comprehensive metabolic panel (08/10/2024 1:47 PM CDT) Pathologist [facility] Glucose 83 65 - 99 mg/dL [facility] Comment: Fasting reference interval BUN 13 7 - 25 mg/dL [facility] Creatinine 0.88 0.50 - 0.99 mg/dL [facility] eGFR 81 > OR = 60 mL/min/1.7 3m2 [facility] BUN/creat ratio SEE NOTE: 6 - 22 (calc) [facility] Comment: Not Reported: BUN and Creatinine are within reference range. Sodium 135 135 - 146 mmol/L [facility] Potassium, pl 4.3 3.5 - 5.3 mmol/L [facility] Chloride 99 98 - 110 mmol/L [facility] CO2 31 20 - 32 mmol/L [facility] Calcium 9.3 8.6 - 10.2 mg/dL [facility] Protein, sr 6.4 6.1 - 8.1 g/dL [facility] Albumin 4.0 3.6 - 5.1 g/dL [facility] GLOBULIN 2.4 1.9 - 3.7 g/dL (calc) [facility] Alb/glob ratio 1.7 1.0 - 2.5 (calc) [facility] Bilirubin, total 0.4 0.2 - 1.2 mg/dL [facility] Alk phos 62 31 - 125 U/L [facility] AST 20 10 - 35 U/L [facility] ALT (SGPT) 14 6 - 29 U/L [facility] 08/10/2024 1:47 PM CDT 08/10/2024 1:47 PM CDT Narrative [facility] - 08/13/2024 7:30 AM CDT FASTING:YES FASTING: YES us Karen Roque ENGINEERING DESIGN MANAGER LAB BLOOD ORDERABLES Final Result [facility] [address] [place] [phone] * HM MAMMOGRAPHY (09/14/2022) Historical Provider HEALTH MAINTENANCE Final Result * PAP SMEAR WITH HPV (06/14/2020) Historical Provider HEALTH MAINTENANCE Final Result from Last 3 Months or Most Recently Relevant to Health Maintenance Insurance [employer] ACC[employer] Member Subscriber Plan / Payer (Ef fective 2024-Present) Name:Nelida Cuenca Relation to Subscriber:Self Name:Nelida Cuenca Payer ID:[id number] (NAIC) Type: SOFIA Address: [facility] [id number] [id number] Care Teams Video Production Assistant Relationship Specialty Start Date End Date Karen Roque NP [address] [facility] [address] [place] [address] PCP - General Internal Medicine 06/27/24
--- NOTE | 2025-02-18 11:01 | ED.EYEPROB ---
HPI - Eye Problem General Chief complaint: Eye Problems Stated complaint: R eye Time Seen by Provider: 02/18/25 10:47 Source: patient and RN notes reviewed Mode of arrival: ambulatory Limitations: no limitations History of Present Illness HPI Narrative: 49-year-old female patient presents today with pain to the right eye. Last night she was accidentally hit in the face with a towel at home, which has some pain irritation to eye, which also led to a headache and increased tearing. Denies vision changes. Wears glasses. Currently rates her pain 7/10 and has been taking some ibuprofen with mild relief. Visual acuity upon arrival: Left eye-20/20, right eye 20/30 Related Data Home Medications ?Medication ?Instructions ?Recorded ?Confirmed ?Last Taken ?Type dextromethorphan IR 45 1 tablet PO BID 12/21/23 07/25/24 07/24/24 History mg-bupropion ER 105 mg biphasic tablet (Auvelity) levothyroxine 88 mcg tablet 88 mcg PO DAILY 12/21/23 07/25/24 07/25/24 History metformin 500 mg tablet 1,000 mg PO DAILY 12/21/23 07/25/24 07/24/24 History multivitamin with minerals-folic 1 tablet PO DAILY 12/21/23 07/25/24 3 Days Ago History acid 0.4 mg tablet ~12/27/23 dextroamphetamine-amphetamine ER 20 mg PO DAILY 07/09/24 07/25/24 07/24/24 History 20 mg 24hr capsule,extend release estradiol 1 mg tablet 1 mg PO DAILY 07/09/24 07/25/24 07/24/24 History progesterone micronized 100 mg 200 mg PO HS 07/09/24 07/25/24 07/24/24 History capsule Allergies Allergy/AdvReac Type Severity Reaction Status Date / Time amoxicillin AdvReac Mild Rash Verified 07/25/24 08:59 [facility] Past Medical History Medical History ADHD Hypothyroidism Diabetes type 2, controlled Social History Social History Smoking status: Never smoker Second hand tobacco smoke exposure: No Alcohol intake: current Alcohol use details: maybe drinks once a month Substance use: never Substance use type: does not use Living arrangements: with family Spiritual care concerns: No Comments At time of signature, I have reviewed and agree with nursing past medical, surgical, social and family history unless otherwise noted. Please see nursing chart for further information. There is no relevant family history pertinent to the presenting complaint Exam Narrative: GENERAL: Well-appearing, well-nourished, and in no acute distress. HEAD: Normocephalic, atraumatic. EYES: EOMI. PERRL. Right eye: Mildly injected conjunctiva. Tiny corneal abrasion overlying the pupil with fluorescein uptake. See procedure note. ENT: Mucous membranes pink and moist. Nares clear. No rhinorrhea. TMs normal bilaterally. Throat normal. Uvula midline. NECK: Normal AROM. Supple. No lymphadenopathy. CHEST: No respiratory distress. Clear to auscultation. HEART: Regular rate and rhythm. No murmur appreciated. Normal peripheral pulses. ABDOMEN: Soft, nontender, nondistended, normal active bowel sounds. MUSCULOSKELETAL: No bony tenderness. EXTREMITIES: Normal range of motion. No edema. SKIN: Warm, dry, no rash. Capillary refill normal. Normal skin turgor. NEURO: No focal deficits. Alert and oriented x3. Gait steady. PSYCH: Normal affect. No signs of depression or anxiety. Course Course Level of Care: Express Care Visit Vital Signs Vital signs: Vital Signs Temperature 98.4 F 02/18/25 10:05 Pulse Rate 73 02/18/25 10:05 Respiratory Rate 18 02/18/25 10:05 Blood Pressure 117/63 02/18/25 10:05 Pulse Oximetry 100 02/18/25 10:05 Oxygen Delivery Room Air 02/18/25 10:05 Temperature 98.4 F 02/18/25 10:05 Pulse Rate 73 02/18/25 10:05 Respiratory Rate 18 02/18/25 10:05 Blood Pressure 117/63 02/18/25 10:05 Pulse Oximetry 100 02/18/25 10:05 Oxygen Delivery Room Air 02/18/25 10:05 Reviewed Procedures Other Procedure Procedure 1: Other Procedure: Right eye was anesthetized with 1 drop of tetracaine and anesthesia was achieved. The eye was flushed with eye wash. Lid was inverted and examined. Cornea was dyed with fluorescein and 1 abrasions was noted. Pt tolerated procedure well. MDM - Eye Problem MDM Narrative Medical decision making narrative: 49-year-old female patient presents today with pain to the right eye. Last night she was accidentally hit in the face with a towel at home, which has some pain irritation to eye, which also led to a headache and increased tearing. Denies vision changes. Wears glasses. Currently rates her pain 7/10 and has been taking some ibuprofen with mild relief. Upon exam, Mildly injected conjunctiva. Tiny corneal abrasion overlying the pupil with fluorescein uptake. Patient will be started on a course of a Polytrim to prevent infection. Recommend she follow up with her eye doctor sometime this week to ensure proper healing. Patient agrees with plan. Vital signs stable. Anticipatory guidance given. Differential Diagnosis Differential diagnosis: Likely corneal abrasion, conjunctivitis and corneal ulcer Critical Care Time Critical Care Time Critical Care Time: No Discharge Plan Discharge Clinical Impression: Abrasion of right cornea Qualifiers: Encounter type: initial encounter Qualified Code(s): S05.01XA - Injury of conjunctiva and corneal abrasion without foreign body, right eye, initial encounter Patient Disposition: Home Condition: Stable Instructions: Corneal Abrasion (DC) Additional Instructions: You have sustained an abrasion on your cornea. Please use eyedrops as directed. It is recommended that you see your eye doctor to ensure that your abrasion is healing properly. Continue ibuprofen for pain if needed. Patient Language: Guamanian Prescriptions: New polymyxin B sulf-trimethoprim 10,000 unit- 1 mg/mL drops 1 drp RIGHT EYE QID 7 Days Qty: 10 0RF No Action Auvelity 45-105 mg tablet,IR,delayed rel,biphasic 1 tablet PO BID levothyroxine 88 mcg tablet 88 mcg PO DAILY metformin 500 mg tablet 1,000 mg PO DAILY Patient Comments: patient takes at dinner time multivit with min-folic acid 0.4 mg Tablet 1 tablet PO DAILY estradiol 1 mg tablet 1 mg PO DAILY progesterone micronized 100 mg capsule 200 mg PO HS dextroamphetamine-amphetamine 20 mg capsule,extended release 24hr 20 mg PO DAILY Follow-up/Referrals: UNKNOWN,DOCTOR [Primary Care Provider] Time of Disposition: 11:09
== END 2025-02-18 11:14 | disposition home or self-care (01) ==
PROVIDERS: Emergency Provider Nurse Practitioner
DX: S05.01XA Injury of conjunctiva and corneal abrasion without foreign body, right eye, initial encounter (principal); W22.8XXA Striking against or struck by other objects, initial encounter; E11.9 Type 2 diabetes mellitus without complications; Z79.84 Long term (current) use of oral hypoglycemic drugs; E03.9 Hypothyroidism, unspecified; F90.9 Attention-deficit hyperactivity disorder, unspecified type
CPT/HCPCS: 99213; A9270; G0463